=== PATIENT | male | born 1935 | race Caucasian/White ===

== ENCOUNTER → 2023-09-08 14:57 | Outpatient (REF) | payer MEDICARE, SELFPAY | LOC: RAD 14:57 | PROVIDERS: ATTENDING PHYSICIAN Surgery Vascular Surgery; FAMILY PHYSICIAN Family Medicine | DX: I72.9 Aneurysm of unspecified site (principal) | CPT/HCPCS: 93922; 93925 ==

== ENCOUNTER → 2024-05-27 10:16 | Outpatient (REF) | payer MEDICARE, SELFPAY | LOC: RCS 10:16 | PROVIDERS: ATTENDING PHYSICIAN Internal Medicine Cardiovascular Disease; FAMILY PHYSICIAN Family Medicine | DX: I48.21 Permanent atrial fibrillation (principal); Z95.2 Presence of prosthetic heart valve; I25.10 Atherosclerotic heart disease of native coronary artery without angina pectoris | CPT/HCPCS: 93306 ==

== ENCOUNTER 2024-10-10 13:43 | Inpatient (IN) | payer MEDICARE, SELFPAY ==
[2024-10-10] VITALS (11 sets, daily range): BP systolic 104–169; BP diastolic 55–91; BMI 26.8; BMI 25.6
[2024-10-10 09:08] LABS: % Basophils 0.3 % (0-2); % Eosinophils 2.3 % (0-6); % Immature Granulocytes 0.5 % (0-0.5); % Lymphocytes 6.3 % (20.5-51.1); % Monocytes 8.6 % (1.7-9.3); Absolute Eosinophils 0.3 10^3/uL (0-0.7); Absolute Immature Granulocytes 0.1 10^3/uL (0-0.05); Absolute Lymphocytes 0.8 10^3/uL (1.2-3.4); Absolute Neutrophils 9.8 10^3/uL (1.4-6.5); Hematocrit 36.5 % (39.0-52.0); Hemoglobin 12.1 g/dL (13.0-18.0); Mean Corp Hgb Conc. 33.2 g/dL (33.0-37.0); Mean Corpuscular Hgb 29.3 pg (27.0-31.0); Mean Corpuscular Volume 88.4 fL (80.0-94.0); Mean Platelet Volume 10.2 fL (7.4-10.4); Nucleated Red Blood Cells % 0 % (-); Platelet Count 244 10^3/uL (130-400); Red Blood Cell Count 4.13 10^6/uL (4.70-6.10); Red Cell Dist. Width 15.4 % (11.5-14.5)
[2024-10-10 09:15] LABS: INR 2.16; PT 24.2 Sec (11.4-14.6)
[2024-10-10 09:17] LABS: ALT (SGPT) 31 U/L (0-50); AST (SGOT) 27 U/L (17-59); Alkaline Phosphatase 257 U/L (38-126); Blood Urea Nitrogen 40 mg/dl (9-20); Calcium 8.9 mg/dl (8.4-10.2); Carbon Dioxide 23 mmol/L (22-30); Chloride 107 mmol/L (98-107); Estimated Creatinine Clearance 37 ml/min; Glucose 126 mg/dl (70-99); Potassium 4.6 mmol/L (3.5-5.1); Sodium 142 mmol/L (135-145); Total Bilirubin 1.3 mg/dl (0.2-1.3); Total Protein 6.7 g/dl (6.3-8.2); eGFR 41.44
[2024-10-10 09:27] LABS: NT-proBNP 2860 pg/ml
[2024-10-10 09:30] LABS: COVID-19 Antigen Negative (Negative)
--- NOTE | 2024-10-10 10:33 | ED.GENMED ---
History of Present Illness
General
Chief Complaint: Breathing Problem
Source: patient
Time Seen by Provider: 10/10/24 09:00
History of Present Illness
History of Present Illness:
88-year-old male with a history of heart failure, A-fib who presents with 2 days of progressive dyspnea with exertion. Also has had orthopnea. Also has had dyspnea at rest. Patient states symptoms have seemed to get worse. Currently denies any
chest pain but has had a few episodes of twinges. No recent fevers. No hemoptysis. Patient is on Coumadin.
Past History
Past History
ED Past Medical History: Arrthythmia (Atrial fibrillation), Asthma, CAD, Cancer (Skin), CHF, GERD, HTN, NIDDM and Other (Carotid stent, pericarditis, neuropathy, back pain)
ED Past Surgical History: Cardiac (Carotid stent)
Social History
Tobacco: Former smoker
Alcohol: Daily ([place], [place] 1-2 glasses)
Drug: None
Personal:
Living: with family
Employment: Retired
Family History
Family History: Other (Noncontributory)
Phy Exam
Physical Exam
Physical Exam:
CONSTITUTIONAL Patient alert and oriented to person, place and time. Well-appearing. Vital signs reviewed.
HEAD atraumatic, normocephalic.
EYES eyelids normal to inspection, Extraocular muscles intact, Conjunctiva normal, Sclera normal.
NECK normal range of motion, Trachea midline, no jugular venous distention.
RESPIRATORY CHEST No respiratory distress noted, Chest expansion equal, diminished at bilateral bases
CARDIOVASCULAR irregularly irregular
ABDOMEN abdomen nontender, Bowel sounds normal. No distention.
BACK normal inspection, no obvious deformities
UPPER EXTREMITY range of motion normal, Motor strength normal, no cyanosis, no edema.
LOWER EXTREMITY range of motion normal, Motor strength normal, no cyanosis, no edema.
NEURO Speech normal, No focal motor deficits, Vladimir coma scale 15, Memory normal, Cranial Nerves intact to screening exam.
SKIN skin warm, dry, and normal in color.
Scores
Heart Failure Risk
Heart Failure Risk Score: Yes
History of Stroke or TIA: No
History of intubation for respiratory distress: No
Heart rate on ED arrival >/= 110: No
SaO2 <90% on arrival on room air: Yes
HR >/=110 during 3min walk test (or too ill to perform test): Yes
ECG has acute ischemic changes: No
Urea >/=12mmol/L (BUN 33.6mg/dL): Yes
Serum CO2>/=35mmol/L: No
Troponin I or T elevated to VT Level (0.4mg/dL): No
NT-proBNP >/=5,000ng/L (5,000pg/ml): No
HF Risk Score: 4
Admission Status: HIGH RISK 26.1% Consider SNF treatment or admission to hospital
Course
Orders/Labs/Results
Orders:
Orders
10/10/24 08:29
Electrocardiogram (*1) Urgent
Reason for Study: Shortness of Breath
EKG- Treatment ONCE
10/10/24 08:55
Complete Blood Count/With Diff Urgent
Comprehensive Metabolic Panel Urgent
NT-proBNP Urgent
PT/INR [Prothrombin Time] Urgent
Influenza A+B Rapid Molecular Urgent
GIO Source: Nasal Swab
Specimen Description:
10/10/24 08:56
COVID-19 Antigen Urgent
Source: Nasal Swab
10/10/24 09:15
CR Chest - 2 Views Urgent
Comment:
Reason For Exam: cough
10/10/24 10:31
Furosemide [Lasix] 80 mg IV NOW STA
10/10/24 11:03
Urinalysis Reflex To Culture Urgent
Date Specimen was Collected: 10/10/24
Time Specimen was Collected: 10:50
Urine Microscopic Reflex Cult Urgent
Urine Culture Urgent
GIO Source: U
Specimen Description:
Date Specimen was Collected: 10/10/24
Time Specimen was Collected: 10:50
10/10/24 13:03
Admit/Transfer Patient As Directed
Co-Sign Provider:
Level of Care: Inpatient admission
Assign to:: Telemetry
Physician / Group: Hospitalist
Diagnosis: acute CHFpEF exacerbation
Reason for Telemetry: Arrhythmia
Date to Stop Telemetry: 10/13/24
Time to Stop Telemetry: 11:00
Reason for Hospitalization: acute CHFpEF exacerbation
Expected length of stay greater than two midnights?: Yes
ELOS- Estimated Length of Stay in days: 3
I certify the patient meets the requirements for IP care: Yes
10/10/24 13:13
Code Status As Directed
Resuscitation Status: Do not resuscitate
Reached after discussion with pt or family/Healthcare POA: Yes
10/10/24 13:14
DNR Bracelet Application ONCE
10/10/24 Dinner
1800 calorie (15 carb) Diabetic
At Your Request: Full Participation
Fluid Restriction: 1440 mL/day (48 oz)
Diabetic Diet: Sodium, 2 Gram
10/10/24 16:24
Acetaminophen [Tylenol] 650 mg PO DAILYPRN PRN
Bisacodyl [Dulcolax] 10 mg RECTAL [id number] PRN
Dextrose 50%-Water [Dextrose 50% Syringe] 12.5 grams IV [id number] PRN
Furosemide [Lasix] 80 mg IV BID AT 0800,1600
Glucagon [GlucaGen] 1 mg IM PRN PRN
Ipratropium/Albuterol Sulfate [Duoneb] 3 ml INH R Q4HPRN PRN
Polyethylene Glycol Powder [Miralax] 17 grams PO DAILYPRN PRN
10/10/24 16:24
WOUND/OSTOMY CONSULT Routine
Reason for Consult: nonhealing ulcer L ankle
Activity As Directed
Activity Level: With Assistance
As Tolerated
Out of Bed- Wheelchair
Bedside Glucose Monitoring As Directed
Frequency: AC&HS
Additional Instructions:: Change to q6h if pt on TPN, tube feeding or not eating
Intake/ Output As Directed
Frequency: Per unit guidelines
Pneumatic Compression Sleeves As Directed
Type: Knee high
Vital Signs As Directed
Frequency: Per unit guidelines
Weight As Directed
Frequency: Daily
Type of Scale: Standing Scale
DX Deep Vein Thrombosis Video Routine
10/10/24 16:30
Insulin Aspart Corrective Low [Novolog Flexpen-Low Resistance] See Protocol SC AC
10/10/24 18:00
Atorvastatin [Lipitor] 40 mg PO QPM
Doxazosin Mesylate [Cardura] 2 mg PO QPM
Ferrous Sulfate [Feosol] 325 mg PO QPM
Warfarin [Coumadin] 6 mg PO SuMoFrSa@1800
10/10/24 20:00
Penicillin V Potassium [Pen Vk] 500 mg PO BID
Potassium Chloride [KCl] 40 meq PO BID
10/10/24 22:00
Diltiazem Extended Release [Cardizem Cd] 120 mg PO HS
10/11/24 05:53
Complete Blood Count/No Diff IN AM
Glycohemoglobin (HgbA1c) IN AM
Magnesium IN AM
10/11/24 06:00
Echo 2D MMode Color/Doppler IN AM
Reason for Study: HFpEF
10/11/24 08:00
Aspirin Low Dose EC [Aspir Low (Enteric Coated)] 81 mg PO DAILY
Colchicine 0.6 mg PO DAILY
Losartan [Cozaar] 100 mg PO DAILY
Multivitamin [Theragran] 1 tablet PO DAILY
Pantoprazole [Protonix] 40 mg PO DAILY
10/12/24 07:24
Basic Metabolic Panel IN AM
Complete Blood Count/No Diff IN AM
Magnesium IN AM
10/12/24 18:00
Warfarin [Coumadin] 3 mg PO TUWETH@1800
10/13/24 06:51
Basic Metabolic Panel IN AM
Complete Blood Count/No Diff IN AM
Magnesium IN AM
10/13/24 11:00
DC Protocol for Telemetry ONCE
10/14/24 05:21
Basic Metabolic Panel IN AM
Complete Blood Count/No Diff IN AM
Magnesium IN AM
10/15/24 06:00
Basic Metabolic Panel IN AM
Complete Blood Count/No Diff IN AM
Magnesium IN AM
10/16/24 06:00
Basic Metabolic Panel IN AM
Complete Blood Count/No Diff IN AM
Magnesium IN AM
10/17/24 06:00
Basic Metabolic Panel IN AM
Complete Blood Count/No Diff IN AM
Magnesium IN AM
Abnormal Lab Results
10/10/24 10/10/24
08:55 11:03
WBC 12.0 H 10^3/uL
(4.8-10.8)
RBC 4.13 L 10^6/uL
(4.70-6.10)
Hgb 12.1 L g/dL
(13.0-18.0)
Hct 36.5 L %
(39.0-52.0)
RDW 15.4 H %
(11.5-14.5)
Abs Immat Gran (auto) 0.1 H 10^3/uL
(0-0.05)
Absolute Neuts (auto) 9.8 H 10^3/uL
(1.4-6.5)
Absolute Lymphs (auto) 0.8 L 10^3/uL
(1.2-3.4)
Absolute Monos (auto) 1.0 H 10^3/uL
(0.1-0.6)
Neutrophils % 82.0 H %
(42.2-75.2)
Lymphocytes % 6.3 L %
(20.5-51.1)
PT 24.2 H Sec
(11.4-14.6)
BUN 40 H mg/dl
(9-20)
Creatinine 1.6 H mg/dL
(0.7-1.3)
Glucose 126 H mg/dl
(70-99)
Alkaline Phosphatase 257 H U/L
(38-126)
Ur Occult Blood Reflex 2+ A
(Negative)
Urine Nitrite (Reflex) Positive A
(Negative)
Leukocyte Esterase Rfl 3+ A
(Negative)
Urine RBC 3-6 A /HPF
(0-2)
Urine WBC (Reflex) >100 A /HPF
(0-5)
Urine Bacteria (Reflex) Many A
(Negative)
Urine Albumin (Reflex) 2+ A
(Neg - Trace)
10/10/24 08:55
10/10/24 08:55
Vital Signs
Initial and Last Documented VS:
Initial Vital Signs
Temp Pulse Resp BP Pulse Ox
97.7 F 85 16 141/91 98
10/10/24 08:27 10/10/24 08:27 10/10/24 08:27 10/10/24 08:27 10/10/24 08:27
Last Documented Vital Signs
Temp Pulse Resp BP Pulse Ox
98.1 F 73 17 109/42 97
10/14/24 23:31 10/14/24 23:31 10/14/24 23:31 10/14/24 23:31 10/14/24 23:31
MDM/Problems Addressed
MDM/Problems Addressed:
Acute CHF, permanent A-fib, acute kidney injury
*Radiology
Radiology exam reviewed: radiology read reviewed
*Pulse Oximetry
Patient hypoxic: yes
*EKG
Interpreted by ED Provider?: Yes
Interpretation: abnormal
Rate: normal
Rhythm: a-fib
Ischemia: non-specific ST changes
*Paring Machine Operator Interpretation
Rate: normal
Interpretation: abnormal
Rhythm: a-fib
*Critical Care Note
Total Time (30-74mins, 75-104mins- exclusive of procedures): Not Applicable
Data Reviewed
Review of Other/Old Records Reveals: Testing (Echocardiogram reviewed from May 2024)
Source: patient
Patient Management
Discussion with other providers: Hospitalist
Escalation/DeEscalation of care consider admission/obs:
88-year-old male who presents acutely with CHF. Found to have orthopnea and progressive dyspnea recently. Mildly hypoxic in the emergency department but stable now. Diurese and admit. Urine pending
ED Attending Note
-
Portions of this chart may have been created with voice recognition software.� Occasional wrong word or��sound alike� substitutions may have occurred due to the inherent limitations of voice recognition software.
Discharge Plan
Departure
Patient Disposition: Admit
Date of Disposition: 10/10/24
Time of Disposition: 10:34
Admit to: Telemetry
Presentation/result/management discussed w/ accepting MD/DO: Hospitalist
Discharge Problem:
Congestive heart failure (CHF), Acute renal insufficiency
Interventions
Interventions:
*Risk Screen - Suicide Last Done: 10/10/24 08:27
*General Assessment Last Done: 10/10/24 08:47
*Neglect/Abuse Screening Last Done: 10/10/24 08:27
*ED- Fall Risk Assessment Last Done: 10/10/24 08:47
*ED COVID-19 Vaccine History Last Done: 10/10/24 08:47
*Nursing Disposition Last Done: 10/10/24 15:59
ED- Cardiac Assessment Last Done: 10/10/24 08:47
ED- Pulmonary Assessment Last Done: 10/10/24 08:47
Discharge Date and Time
Discharge Date/Time: 10/10/24 16:05
[2024-10-10] MEDS: LASIX 80 MG IV ×2 (11:09→17:31)
[2024-10-10 11:41] LABS: Urine Albumin 2+ (Neg - Trace); Urine Bilirubin Negative (Negative); Urine Character Slightly Cloudy (Clear); Urine Color Yellow; Urine Glucose Negative (Negative); Urine Ketone Negative (Negative); Urine Leukocyte 3+ (Negative); Urine Nitrite Positive (Negative); Urine Occult Blood 2+ (Negative); Urine Urobilinogen Negative (Neg - 1+)
--- NOTE | 2024-10-10 11:57 | HPS.HSE ---
Addendum entered and electronically signed by Simran Orellana MD 10/10/24 14:40:
I personally performed a history and physical exam of the patient and discussed management with the resident. I reviewed the resident's note and agree with the documented findings and plan of care HPI/CC.
GENERAL: well developed, well nourished, male in no apparent distress
HEENT: NC/AT--no O2 in place (currently eating a sandwich)
HEART: irreg irreg
LUNGS : decreased BS bilaterally with expiratory wheezing
ABDOM: soft, nontender, nondistended, + bowel sounds
EXT: no cyanosis, clubbing, or edema
NEUROLOGIC: grossly intact
Dyspnea, likely acute HFpEF exacerbation with acute hypoxemic resp insufficiency (2L) now on room air--Pulm HTN, asthmatic bronchitis may also be contributing, check flu/Covid-- Continue IV lasix 80mg BID, monitor I&Os, daily weights-- agree with
rechecking ECHO--consult cardiology--Continue home losartan 100mg
Permanent atrial fibrillation-- Remains in afib rhythm, rate adequately controlled--Continue home diltiazem ER and warfarin-- Monitor INR.
Essential HTN-- continue home diltiazem and doxazosin 2mg
Diabetes mellitus type 2 (pt claims he is prediabetic)-- Hold home metformin for now given elevated creat-- Diabetic diet, accuchecks, ISS while inpatient--A1C in AM.
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
UTI--UA, symptoms consistent with UTI-- ceftriaxone 1g daily (patient denies any reaction to cefazolin, antibiotics, or any med), culture pending
CAD, HLD-- continue home atorvastatin 40mg, asa 81mg
GERD-- continue home pantoprazole 40mg
Hypokalemia-- continue home K 20meq BID, follow BMP, supplement prn
?Gout-- continue home colchicine
H/o recurrent cellulitis-- continue home penicillin 500mg BID for prophylaxis, on chronically PLATE CUTTER
Asthma-- not on inhalers PLATE CUTTER; duonebs prn
Code status: DNR
DVT proph-- warfarin, SCDs
Original Note:
Family Physician
-
Family Physician: * NONE
Chief Complaint
-
shortness of breath, fluid retention
History of Present Illness
88yo M with PMH chronic HFpEF, perm afib (warfarin), s/p TAVR, CAD s/p LAD stent, PAD, pulm htn, former smoker who presents to ED for worsening shortness of breath and fluid retention. He was in his baseline state of health, and 2 days ago noticed
worsening shortness of breath with exertion, laying flat, and at rest. 3 days ago he had transient chest pain that lasted 10 seconds, and then another brief episode that felt like a pulled muscle which resolved spontaneously; otherwise denies chest
pain/pressure. Reports dry cough; no fevers, chills, rhinorrhea, congestion, flulike symptoms. He reports his he monitors his weight daily, yesterday it was 195 lbs which is his dry weight per review of outpatient records. He has been taking his
regular medications, but did not take that as needed dose of metolazone/K/lasix for worsening fluid retention. He says his breathing got much worse last night, which prompted him to come to the ER this morning.
Medical History
Past Medical History
Past Medical History: Reports Arrhythmia (permanent afib on warfarin), Asthma, CAD (s/p LAD stent), Cancer (skin), CHF (pEF), HTN, Hypercholesterolemia, NIDDM, [place], Renal Failure (CKD), Valvular Disease (s/p TAVR) and Other (PAD, bilateral carotid
disease, schambers disease, pulmonary hypertension, chronic ambulatory dysfunction, seasonal allergies)
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
Social History
Tobacco: Former Smoker
Alcohol: Daily (4-5 days per week)
Drug: None
Family History
Family History: Not pertinent
Allergies / Home Medications
Allergies reflects when Allergies were last updated in [employer].
Home Medications with original date entered in [facility]
Allergy/Medication List:
Allergies
Allergy/AdvReac Type Severity Reaction Status Date / Time
cefazolin Allergy Rash; Verified 10/10/24 08:28
tolerates
PCN
clopidogrel [From Plavix] Allergy Rash Verified 10/10/24 08:28
Home Medications
multivitamin with folic acid 400 mcg tablet (Tab-A-Janay) 1 tab PO DAILY Supplement 10/16/18
atorvastatin 40 mg tablet 40 mg PO QPM #90 tabs 01/20/19
pantoprazole 40 mg tablet,delayed release 40 mg PO DAILY ##90 01/20/19
aspirin 81 mg tablet,delayed release 81 mg PO DAILY Blood clot prevention/tx 08/08/19
furosemide 80 mg tablet 160 mg PO DAILY Fluid retention/Swelling 08/09/19
metformin 500 mg tablet 500 mg PO QPM Diabetes 11/14/20
diltiazem HCl 180 mg capsule,extended release 24 hr 180 mg PO QPM Blood pressure 05/23/21
ferrous sulfate 325 mg (65 mg iron) tablet (FeroSul) 325 mg PO QPM Supplement 05/23/21
potassium chloride 20 mEq tablet,extended release(part/cryst) (Klor-Con M) 20 meq PO QPM Electrolyte Repletion 05/23/21
potassium chloride 20 mEq tablet,extended release(part/cryst) (Klor-Con M) 40 meq PO DAILY Electrolyte Repletion 05/23/21
colchicine 0.6 mg tablet 0.6 mg PO DAILY 03/01/22
penicillin V potassium 500 mg tablet 500 mg PO BID 03/01/22
warfarin 3 mg tablet 3 mg PO WE 03/01/22
warfarin 6 mg tablet 6 mg PO SUMOTUTHFRSA 03/01/22
losartan 100 mg tablet 100 mg PO DAILY 04/01/22
metolazone 2.5 mg tablet 2.5 mg PO PRN PRN .weight gain 04/01/22
Review of Systems
-
Constitutional: Reports Weight Gain; Denies Fever or Chills
EENT: Reports No Symptoms; Denies Sore Throat or Runny Nose
Respiratory: Reports Cough (dry) and Trouble Breathing (see HPI); Denies Hemoptysis
Cardiac: Reports Chest Pain (transient, resolved); Denies Diaphoresis, Palpitations or Syncope
Abdomen/GI: Reports No Symptoms; Denies Abdominal Pain, Nausea, Vomiting, Diarrhea, Constipated, Bloody Stools or Black Stools
: Reports Dysuria; Denies Difficulty Voiding
Musculoskeletal: Reports No Symptoms; Denies Joint Pain or Muscle Pain
Skin: Reports Other (chronic nonhealing ulcer, at baseline)
Neurological: Reports Numbness and Other (peripheral neuropathy); Denies Dizzy, Headache or Weakness
Endocrine: Reports No Symptoms
Hematologic/Lymphatic: Reports No Symptoms
Psych: Reports No Symptoms
Physical Exam
Vital Signs
Vital Signs
Temp Pulse Resp BP Pulse Ox
97.7 F 77 19 149/76 93
10/10/24 08:27 10/10/24 11:45 10/10/24 11:45 10/10/24 11:09 10/10/24 11:45
Physical Exam
General: Comfortable, Conversant and Obese; No Pain, Fever, Chills, Sweats or Slurred Speech
HEENT: NormoCephalic, Atraumatic, Hearing Impaired (+hearing aids) and Oxygen (2 L/min NC)
Respiratory: Wheezes (throughout); No Rhonchi or Crackles
Cardiac: S1/S2 and Irregular Rhythm; No Bradycardia or Tachycardia
GI: Soft, Non Tender, Normal Bowel Sounds and Distended
Musculoskeletal: Edema, Left Lower Extremity, Edema, Right Lower Extremity and Other (s/p R 5th toe amputation; lower extrem with +1 edema bilat/symmetric)
Skin: Warm, Dry, Rash (hyperpigmentation bilat lower legs), Ulcers (L ankle) and Other (black macule inferior L 3rd toe)
Neuro: Awake, Alert, Oriented, AO x 3 and Nonfocal/grossly intact; No Slurred Speech or Facial Droop
Psych: Calm
Laboratory Results
-
10/10/24 08:55
10/10/24 08:55
Laboratory Results
PT 24.2 Sec (11.4-14.6) H 10/10/24 08:55
INR 2.16 10/10/24 08:55
Total Bilirubin 1.3 mg/dl (0.2-1.3) 10/10/24 08:55
AST 27 U/L (17-59) 10/10/24 08:55
ALT 31 U/L (0-50) 10/10/24 08:55
Alkaline Phosphatase 257 U/L (38-126) H 10/10/24 08:55
Data Reviewed
-
Diagnostic Radiology: Image Personally Visualized and interpreted and Report Reviewed by me
Medical Tests (Nuc Med, Echo, EKG etc): Report Reviewed by me
Lab Data: Labs Reviewed by me
Old Records: Reviewed
Impression/Plan
-
88yo M with PMH chronic HFpEF, perm afib (warfarin), s/p TAVR, CAD s/p LAD stent, PAD, pulm htn, former smoker who presents to ED for worsening dyspnea and fluid retention. In the ED, BNP was 2860, chest x-ray showed pulmonary edema and bilateral
pleural effusions. Flu and COVID swabs were negative. He was given IV Lasix 80 mg.
Dyspnea, likely acute HFpEF exacerbation. Pulm htn, asthmatic bronchitis may also be contributing-- Continue IV lasix 80mg BID, monitor I&Os, daily weights, low Na diet. Obtain echo, consult cardiology. Continue home losartan 100mg-- Card consult
Permanent atrial fibrillation-- Remains in afib rhythm, rate adequately controlled. Continue home diltiazem ER and warfarin. Monitor INR.
HTN-- continue home diltiazem and doxazosin 2mg
Diabetes type 2-- Hold home metformin. Diabetic diet, accuchecks, ISS while inpatient. A1C in AM.
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
UTI--UA, symptoms consistent with UTI-- ceftriaxone 1g daily (patient denies any reaction to cefazolin, antibiotics, or any med), culture pending
CAD, HLD-- continue home atorvastatin 40mg, asa 81mg.
GERD-- continue home pantoprazole 40mg
Hypokalemia-- continue home K 20meq BID, follow BMP, supplement prn
?Gout-- continue home colchicine
H/o recurrent cellulitis-- continue home penicillin 500mg BID for prophylaxis, on chronically PLATE CUTTER
Asthma-- not on inhalers PLATE CUTTER; duonebs prn
Code status: DNR
VTE ppx: warfarin, SCDs
Diet: diabetic, 2g Na, fluid restrict
Dispo planning: TBD pending clincal course and PT eval
Chest xray 10/10/24
IMPRESSION:
As described, findings highly suggestive of interstitial pulmonary edema pattern with bilateral pleural effusions, right greater than left.
[2024-10-10 12:13] LABS: Urine Squamous Cell 0-2 /LPF (Few)
[2024-10-10 12:14] LABS: Urine Bacteria Many (Negative); Urine White Cell >100 /HPF (0-5)
[2024-10-10] MEDS: STERILE WATER FOR INJECTION 10 ML IV (14:45)
[2024-10-10] MEDS: ROCEPHIN 1000 MG IV (14:45)
--- NOTE | 2024-10-10 17:08 | PTCARENOTE ---
Pt was received from ED at 1641. Pt is AAox3, BP elevated, will monitor. Pt with SOB on arrival but states that his breathing is better than before. 3L O2 on, POX 97%. Pt oriented to the room and care plan reviewed. Call maddox in reach. Son at the
bedside.
[2024-10-10] MEDS: LIPITOR 40 MG PO (17:29)
[2024-10-10] MEDS: FEOSOL 325 MG PO (17:29)
[2024-10-10] MEDS: CARDURA 2 MG PO (17:29)
[2024-10-10] MEDS: COUMADIN 6 MG PO (17:30)
[2024-10-10 17:35] LABS: Glucose - Point of Care 92 mg/dl (70-99)
[2024-10-10] MEDS: PEN VK 500 MG PO (19:28)
[2024-10-10] MEDS: KCL 40 MEQ PO (19:28)
[2024-10-10] MEDS: CARDIZEM CD 120 MG PO (21:13)
[2024-10-10 21:14] LABS: Glucose - Point of Care 150 mg/dl (70-99)
[2024-10-11] VITALS (7 sets, daily range): BP systolic 118–155; BP diastolic 55–71; PULSE 83; BMI 25.0
[2024-10-11 06:31] LABS: Hematocrit 34.6 % (39.0-52.0); Hemoglobin 11.2 g/dL (13.0-18.0); Mean Corp Hgb Conc. 32.4 g/dL (33.0-37.0); Mean Corpuscular Hgb 29.6 pg (27.0-31.0); Mean Corpuscular Volume 91.5 fL (80.0-94.0); Mean Platelet Volume 10.7 fL (7.4-10.4); Platelet Count 234 10^3/uL (130-400); Red Blood Cell Count 3.78 10^6/uL (4.70-6.10); Red Cell Dist. Width 15.4 % (11.5-14.5); White Blood Cell Count 9.9 10^3/uL (4.8-10.8)
[2024-10-11 06:39] LABS: INR 2.26
[2024-10-11 07:07] LABS: ALT (SGPT) 27 U/L (0-50); AST (SGOT) 21 U/L (17-59); Albumin 3.4 g/dl (3.5-5.0); Alkaline Phosphatase 228 U/L (38-126); Blood Urea Nitrogen 35 mg/dl (9-20); Calcium 8.9 mg/dl (8.4-10.2); Carbon Dioxide 25 mmol/L (22-30); Chloride 108 mmol/L (98-107); Direct Bilirubin 0.4 mg/dl (0.0-0.4); Estimated Creatinine Clearance 42 ml/min; Glucose 122 mg/dl (70-99); Magnesium 2.2 mg/dl (1.6-2.3); Potassium 4.7 mmol/L (3.5-5.1); Sodium 144 mmol/L (135-145); Total Bilirubin 0.9 mg/dl (0.2-1.3); Total Protein 5.9 g/dl (6.3-8.2); eGFR 48.65
[2024-10-11 07:46] LABS: Glucose - Point of Care 148 mg/dl (70-99)
[2024-10-11] MEDS: COLCHICINE 0.6 MG PO (08:29)
[2024-10-11] MEDS: PEN VK 500 MG PO ×2 (08:29→19:51)
[2024-10-11] MEDS: THERAGRAN 1 TABLET PO (08:29)
[2024-10-11] MEDS: PROTONIX 40 MG PO (08:29)
[2024-10-11] MEDS: KCL 40 MEQ PO ×2 (08:29→19:51)
[2024-10-11] MEDS: COZAAR 100 MG PO (08:29)
[2024-10-11] MEDS: ASPIR LOW (ENTERIC COATED) 81 MG PO (08:29)
[2024-10-11] MEDS: LASIX 80 MG IV ×2 (08:29→15:29)
--- NOTE | 2024-10-11 10:37 | WOUNDNOTE ---
L 3RD TOE PLANTAR
--- NOTE | 2024-10-11 10:38 | WOUNDNOTE ---
L 3RD TOE NAIL
--- NOTE | 2024-10-11 10:41 | WOUNDNOTE ---
[facility] RN note: Patient admitted with CHF
See H&P for complete history.
PMH: ED Past Medical History: Arrthythmia (Atrial fibrillation), Asthma, CAD, Cancer (Skin), CHF, GERD, HTN, NIDDM and Other (Carotid stent, pericarditis, neuropathy, back pain)
ED Past Surgical History: Cardiac (Carotid stent) R foot surgery for osteomyelitis.
Wound Location and type/assessment: Patient admitted with: L lateral ankle full thickness ulcer, reeves base, scant drainage. Patient reports it was caused by a shoe buckle, he is being followed by Dr. Johnson. Reports treatment is mupirocin cream
daily and dry dressing, has apt with Dr. Johnson next week. R heel and foot with dry intact old healed surgical sites. Patient turned self to sides, sacrum blanchable red, chronic perianal discoloration. L 3rd toe plantar with tiny blood blister and
abrasion on L guo, scabbed and dry. Patient reports he got this when trying to put pants on and stubbed toe and scraped guo. L heel is blanchable red. R arm with tiny skin tear, silicone foam in use.
Appetite: Good.
Pressure redistribution devices in place: On versa care air bed, pillow under calves.
Plan: Will order mupirocin for L ankle ulcer, applied adaptic and silicone foam. Adhesive foams applied to heels. Continue Band aid to L 3rd toe. Will confirm orders with hospitalist and update nurse.
Updated care plan and will follow as needed.
Note to case management of equipment requested for discharge: VN if patient unable to do wound care
Recommend follow up with Dr. Johnson.
[2024-10-11 10:43] LABS: Glycohemoglobin (HgbA1c) 5.8 % (4.0-5.6)
[2024-10-11] MEDS: BACTROBAN 2% OINTMENT 1 APPLIC TOPICAL (12:22)
[2024-10-11 12:32] LABS: Glucose - Point of Care 105 mg/dl (70-99)
--- NOTE | 2024-10-11 13:57 | CON.CAR ---
Addendum entered and electronically signed by Chidi Herman MD 10/11/24 16:19:
88 yo male with PMH of chronic HFPEF, pulm HTN, cor pulmonale, permanent A fib on warfarin admitted with SOB, edema. SOB is improving with IV lasix. Exam with irregular rhythm, II/ systolic murmur at apex, trace LE edema. Cr 1.4.
Acute on chronic HFPEF, cor pulmonale. Severe, requiring hospitalization and IV lasix with close monitoring of labs, tele. Check echo. of note, he takes lasix 160mg AM, 80mg PM at home. May need metolazone at home. He is currently responding to
lasix 80mg IV bid.
Original Note:
Consultation
Consultation Request
Date/Time Consultation Requested: 10/11/24 1307
Date/Time Consultation Performed: 10/11/24 1357
Requesting Provider: Dr. Sun
Performing Provider: Yisel DANIELS for
Reason for Consultation: CHF, hypoxia, pulm HTN
Medical History
-
Chief Complaint: SOB
History of Present Illness:
88 y/o male (patient of Dr. Elizabeth) with permanent AFIB on warfarin, CAD with stenting 2018, HTN, HFpEF, s/p TAVR, PAD (Dr. Easton), CKD, and severe pulm HTN who is here for SOB since Friday. He is being diuresed and is on O2. He feels 80%
better. Weight is down and I/O negative. He is in no distress at the time of my assessment.
Past Medical History
Past Medical History: Arrhythmias, CAD, CHF, HTN, Valvular Disease and Other (as above)
Social History
Tobacco: Non-Smoker
Family History
Family History: Reviewed & Not Pertinent
Allergies / Home Medications
Allergy/AdvReac Type Severity Reaction Status Date / Time
cefazolin Allergy Rash; Verified 10/10/24 08:28
tolerates
PCN
clopidogrel [From Plavix] Allergy Rash Verified 10/10/24 08:28
�Medication �Instructions �Recorded �Confirmed �Type
multivitamin with folic acid 400 1 tab PO DAILY Supplement 10/16/18 10/10/24 History
mcg tablet (Tab-A-Janay)
atorvastatin 40 mg tablet 40 mg PO QPM #90 tabs 01/20/19 10/10/24 Rx
pantoprazole 40 mg tablet,delayed 40 mg PO DAILY ##90 01/20/19 10/10/24 Rx
release
aspirin 81 mg tablet,delayed 81 mg PO DAILY Blood clot 08/08/19 10/10/24 History
release prevention/tx
furosemide 80 mg tablet 80 mg PO DAILY Fluid 08/09/19 10/10/24 History
retention/Swelling
ferrous sulfate 325 mg (65 mg 325 mg PO QPM Supplement 05/23/21 10/10/24 History
iron) tablet (FeroSul)
potassium chloride 20 mEq 40 meq PO BID Electrolyte Repletion 05/23/21 10/10/24 History
tablet,extended
release(part/cryst) (Klor-Con M)
colchicine 0.6 mg tablet 0.6 mg PO DAILY Gout 03/01/22 10/10/24 History
penicillin V potassium 500 mg 500 mg PO BID Infection 03/01/22 10/10/24 History
tablet
warfarin 3 mg tablet 3 mg PO TUWE@1800 Blood Clot 03/01/22 10/10/24 History
Prevention/Tx
warfarin 6 mg tablet 6 mg PO SuMoFrSa@1800 03/01/22 10/10/24 History
losartan 100 mg tablet 100 mg PO DAILY Blood Pressure 04/01/22 10/10/24 History
acetaminophen 325 mg tablet 650 mg PO DAILYPRN PRN mild pain 10/10/24 10/10/24 History
(Tylenol)
diltiazem HCl 120 mg capsule,24 120 mg PO HS Heart 10/10/24 10/10/24 History
hr,extended release Disease/Condition
doxazosin 2 mg tablet 2 mg PO QPM 10/10/24 10/10/24 History
furosemide 80 mg tablet (Lasix) 80 mg PO QPM 10/10/24 10/10/24 History
metformin 500 mg tablet 500 mg PO QPM Diabetes 10/10/24 10/10/24 History
Review of Systems
-
History Source: Patient
All other systems: Negative unless noted
Respiratory: Trouble Breathing
Physical Exam
Vital Signs
Temp Pulse Resp BP Pulse Ox
97.9 F 86 20 155/63 94
10/11/24 11:00 10/11/24 11:00 10/11/24 11:00 10/11/24 11:00 10/11/24 11:00
Lab Results
10/11/24 05:53
10/11/24 05:53
Qwk-X-Wvtdakjbimg Pept 2860 pg/ml 10/10/24 08:55
Physical Exam
General: Well Developed, Well Nourished and No Apparent Distress
HEENT: Normocephalic and Anicteric
Respiratory: Crackles (mild, bases) and Other (on O2 by NC)
Cardiac: Irregular Rhythm
GI: Distended (soft)
Musculoskeletal: No Edema
Skin: Warm and Dry
Neuro: AO x 3
Psych: Calm
Impression / Plan
-
SOB:
-Cor Pulmonale, severe pulm HTN, HFpEF ([id number])
-Echo 10/11/24: EF 55-60%. Mild/moderate mitral regurgitation. Normally functioning 23mm Chambers S3 TAVR. Peak gradient 23mmHg/Mean gradient 13mmHg. Mildly dilated right ventricle. Mildly reduced RV systolic function. Moderate TR. Severely elevated
PASP. PAP 85-90 mmHg.
-agree with IV diuresis, which requires intensive monitoring. OP regimen includes Lasix 160 mg PO in AM and 80 mg in PM, and PRN metolazone 2.5 mg (takes if weight goes up 3 lbs overnight or gets close to 200 lbs)- typically 1-3 x per week.
-feels 80% better s/p IV diuresis and O2 by NC. Weight is down and I/O negative. He does note that he has had more soup recently. CHF education. Will also pfeiffer SGLT2 inhibitors.
s/p TAVR:
-stable by echo
AFIB: permanent
-continue warfarin and follow INR's (In range today)
-continue diltiazem
CAD with hx stenting:
-stable
-on ASA and statin
SOCO on CKD:
-monitor with diuresis
Data Reviewed
-
EKG: Tracing Personally Visualized and interpreted (AFIB, LBBB )
Radiology: Report Reviewed by me (CXR: findings highly suggestive of interstitial pulmonary edema pattern with bilateral pleural effusions, right greater than left.)
Medical Tests (Nuc Med, Echo etc): Report Reviewed by me (Echo 10/11/24: EF 55-60%. Mild/moderate mitral regurgitation. Normally functioning 23mm Chambers S3 TAVR. Peak gradient 23mmHg/Mean gradient 13mmHg. Mildly dilated right ventricle. Mildly
reduced RV systolic function. Moderate TR. Severely elevated PASP. PAP 85-90 mmHg.)
Labs: Labs Reviewed by me
--- NOTE | 2024-10-11 14:32 | W.PN.HOSP.TC ---
Today's Communication/Plan
-
Diuresis.
Follow BMP.
Attempt to wean off supplemental oxygen as tolerates
Cardiology consultation.
Continue antibiotics pending urine cultures.
Wound care.
TREVA/PVR
Assessment / Plan
Assessment / Plan
Impression:
Acute hypoxic respiratory failure secondary to CHF exacerbation.
Acute CHF preserved EF exacerbation.
Severe pulmonary hypertension.
SOCO possibly secondary to cardiorenal
UTI uncomplicated
Other conditions
Aortic stenosis status post TAVR.
Permanent atrial fibrillation
Anticoagulation with Coumadin
Systemic hypertension
Diabetes mellitus type 2.
CKD stage IIIa with baseline creatinine 1.2
CAD
PAD.
Dyslipidemia
GERD.
Gout.
Asthma
Plan:
Echo 10/11
Normal left ventricular systolic function. Left ventricular ejection fraction
is 55-60%.
Mild/moderate mitral regurgitation.
Normally functioning 23mm Chambers S3 TAVR. Peak gradient 23mmHg/Mean gradient
13mmHg.
Mildly dilated right ventricle. Mildly reduced right ventricular systolic
function.
Moderate tricuspid regurgitation. Severely elevated PASP. Estimated pulmonary
artery pressure of 85-90 mmHg assuming a right atrial pressure of 15 mmHg.
Compared to 05/27/24: MR has improved from moderate to mild/moderate. Moderate
TR is stable. PASP was 80-90 mmHg at that time (stable).
Acute hypoxic respiratory failure secondary to CHF exacerbation
Acute CHF preserved EF
Pulmonary hypertension
Reports improvement with diuresis. Weight 80-85 kg since admission. Currently on O2 at 2 L with no distress.
Repeated echo as above.
Reports compliance with outpatient cardiovascular regimen including daily diuretics
Continue IV diuresis.
Attempt to wean off oxygen.
Cardiology consultation
With severe pulmonary hypertension, may need additional evaluation with RHC
Continue Cardura, losartan, diltiazem
SOCO
CKD stage IIIa with baseline creatinine 1.2.
Suspect cardiorenal state.
Improvement with diuresis.
Bladder scan for retention.
Continue losartan with caution monitor renal function
UTI.
Symptomatic on admission
Continued ceftriaxone pending urine cultures.
PAD with history of right lower extremity wound and balloon angioplasty on right posterior tibial artery
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
Will repeat TREVA/PVR
Continue wound care
CAD denies any chest pain
ECG with A-fib with no ischemia.
Echo with no regional wall motion abnormalities
Permanent atrial fibrillation.
Rate control with diltiazem.
Anticoagulations Coumadin with goal for INR 2-3. Monitor daily while on antibiotics.
Prediabetes
Hemoglobin A1c 5.8
Continue to monitor sugars daily
Anticipated Discharge: 24 - 48 hours
Subjective/Interval History
-
Date of Service: October 11, 2024
Objective Data
-
Labs:
Laboratory Results
10/11/24
05:53
WBC 9.9
Hgb 11.2 L
Hct 34.6 L
Plt Count 234
PT 25.0 H
INR 2.26
Sodium 144
Potassium 4.7
Chloride 108 H
Carbon Dioxide 25
BUN 35 H
Creatinine 1.4 H
Glucose 122 H
Calcium 8.9
Total Bilirubin 0.9
AST 21
ALT 27
Alkaline Phosphatase 228 H
Vital Signs:
Vital Signs
Temp Pulse Resp BP Pulse Ox
97.9 F 86 20 155/63 94
10/11/24 11:00 10/11/24 11:00 10/11/24 11:00 10/11/24 11:00 10/11/24 11:00
I&O
10/10/24 10/11/24 10/12/24
06:59 06:59 06:59
Intake Total 460 / 460
Output Total 2400 / 2400
Balance -1939 /
Physical Exam
-
General: Well Developed and No Apparent Distress
HEENT: Normocephalic, Atraumatic and Moist Mucous Membranes
Respiratory: Clear to Auscultation
Cardiac: Regular Rhythm and S1/S2; Negative Murmur, Rub or Gallop
GI: Soft, Nontender, Nondistended and Normal Bowel Sounds; Negative Organomegaly
Rectal: Deferred by Provider
Musculoskeletal: No Clubbing, No Cyanosis and No Edema
Skin: Negative Rash
Neuro: Nonfocal/Grossly Intact
[2024-10-11] MEDS: STERILE WATER FOR INJECTION 10 ML IV (15:29)
[2024-10-11] MEDS: ROCEPHIN 1000 MG IV (15:29)
[2024-10-11 16:11] LABS: Glucose - Point of Care 122 mg/dl (70-99)
--- NOTE | 2024-10-11 17:10 | CM ---
Alert awake oriented patient who lives alone lives in a 2 story home with 1 step to enter and bed and bathroom on first floor. He is independent in driving and in all activities of daily living.He was offered VN he declined need.He is on oxygen
here in . Watch for oxygen needs. He uses wc walker at home.
. Pt [facility] hx / No SNF history
Pharmacy [facility]
PCP DR Rip Craft
PLAN Home Declined VN
[2024-10-11] MEDS: LIPITOR 40 MG PO (17:40)
[2024-10-11] MEDS: FEOSOL 325 MG PO (17:40)
[2024-10-11] MEDS: COUMADIN 6 MG PO (17:46)
[2024-10-11] MEDS: CARDURA 2 MG PO (17:46)
--- NOTE | 2024-10-11 18:29 | PTCARENOTE ---
pt with decreased output, bladder scanned pt. pt with 391 cc in his bladder. pt explained of possible st cath if greater than [address] cath in that event. made aware. no new orders at this time. cont. bladder scan.
[2024-10-11] MEDS: CARDIZEM CD 120 MG PO (19:52)
[2024-10-11 21:40] LABS: Glucose - Point of Care 102 mg/dl (70-99)
[2024-10-12] VITALS (7 sets, daily range): BP systolic 109–162; BP diastolic 56–71; O2SAT 94; BMI 25.1
[2024-10-12 07:59] LABS: Glucose - Point of Care 98 mg/dl (70-99)
[2024-10-12 08:10] LABS: INR 2.45; PT 26.6 Sec (11.4-14.6)
[2024-10-12 08:13] LABS: Hematocrit 36.5 % (39.0-52.0); Hemoglobin 11.7 g/dL (13.0-18.0); Mean Corp Hgb Conc. 32.1 g/dL (33.0-37.0); Mean Corpuscular Hgb 29.3 pg (27.0-31.0); Mean Corpuscular Volume 91.3 fL (80.0-94.0); Mean Platelet Volume 10.7 fL (7.4-10.4); Platelet Count 242 10^3/uL (130-400); Red Cell Dist. Width 15.3 % (11.5-14.5); White Blood Cell Count 9.8 10^3/uL (4.8-10.8)
--- NOTE | 2024-10-12 08:19 | W.PN.CD ---
Today's Communication / Plan
-
add metolazone 5mg x1 prior to AM lasix, and continue lasix 80mg IV bid
Impression / Plan
-
SOB:
-Cor Pulmonale, severe pulm HTN, HFpEF ([id number]): requiring hospitalization and close monitoring of labs, tele
-Echo 10/11/24: EF 55-60%. Mild/moderate mitral regurgitation. Normally functioning 23mm Chambers S3 TAVR. Peak gradient 23mmHg/Mean gradient 13mmHg. Mildly dilated right ventricle. Mildly reduced RV systolic function. Moderate TR. Severely elevated
PASP. PAP 85-90 mmHg.
-OP regimen includes Lasix 160 mg PO in AM and 80 mg in PM, and PRN metolazone 2.5 mg (takes if weight goes up 3 lbs overnight or gets close to 200 lbs)- typically 1-3 x per week.
- still SOB: add metolazone 5mg x1 prior to AM lasix, and continue lasix 80mg IV bid
s/p TAVR:
-stable by echo
AFIB: permanent
-continue warfarin and follow INR's (In range today)
-continue diltiazem
CAD with hx stenting:
-stable
-on ASA and statin
SOCO on CKD3a:
-monitor with diuresis
Physical Exam
Vital Signs/Labs
Vital Signs
Temp Pulse Resp BP Pulse Ox
98 F 69 20 114/57 95
10/12/24 03:08 10/12/24 03:08 10/12/24 03:08 10/12/24 03:08 10/12/24 03:08
10/11/24 10/12/24 10/13/24
06:59 06:59 06:59
Actual Weight 85.927 kg 86.364 kg
10/12/24 07:24
PT 26.6 Sec (11.4-14.6) H 10/12/24 07:24
INR 2.45 10/12/24 07:24
Magnesium 2.2 mg/dl (1.6-2.3) 10/11/24 05:53
10/10/24
08:55
Nfv-Z-Ctgwstixthj Pept 2860
Physical Exam
Constitutional: No acute distress
EENT: Moist mucous membranes
Cardiovascular: Rhythm/rate is irregular, Pedal edema present, JVD present and Systolic murmur present
Respiratory: Labored respirations
Neuro/Psych: AO x 3
Data Reviewed
-
Date of Service: October 12, 2024
EKG: Other (Tele: A fib 60s)
Labs: Labs Reviewed by me
[2024-10-12 08:38] LABS: Blood Urea Nitrogen 38 mg/dl (9-20); Calcium 9.3 mg/dl (8.4-10.2); Carbon Dioxide 26 mmol/L (22-30); Chloride 108 mmol/L (98-107); Estimated Creatinine Clearance 42 ml/min; Glucose 106 mg/dl (70-99); Magnesium 2.3 mg/dl (1.6-2.3); Potassium 4.2 mmol/L (3.5-5.1); Sodium 144 mmol/L (135-145); eGFR 48.65
[2024-10-12] MEDS: PROTONIX 40 MG PO (10:16)
[2024-10-12] MEDS: BACTROBAN 2% OINTMENT 1 APPLIC TOPICAL (10:16)
[2024-10-12] MEDS: COZAAR 100 MG PO (10:17)
[2024-10-12] MEDS: KCL 40 MEQ PO ×2 (10:17→19:39)
[2024-10-12] MEDS: THERAGRAN 1 TABLET PO (10:17)
[2024-10-12] MEDS: ASPIR LOW (ENTERIC COATED) 81 MG PO (10:21)
[2024-10-12] MEDS: COLCHICINE 0.6 MG PO (10:22)
[2024-10-12] MEDS: ZAROXOLYN 5 MG PO (10:22)
[2024-10-12] MEDS: PEN VK 500 MG PO (10:22)
[2024-10-12] MEDS: LASIX 80 MG IV ×2 (11:02→17:32)
[2024-10-12 12:13] LABS: Glucose - Point of Care 134 mg/dl (70-99)
--- NOTE | 2024-10-12 15:59 | W.PN.HOSP.TC ---
Today's Communication/Plan
-
IV diuresis with addition of metolazone.
Easton catheter for acute retention per
Continue antibiotics pending final cultures. Hold Pen-Vk while on ceftriaxone
TREVA/PVR
Assessment / Plan
Assessment / Plan
Impression:
Acute hypoxic respiratory failure secondary to CHF exacerbation.
Acute CHF preserved EF exacerbation.
Severe pulmonary hypertension.
SOCO possibly secondary to cardiorenal
UTI uncomplicated
Other conditions
Aortic stenosis status post TAVR.
Permanent atrial fibrillation
Anticoagulation with Coumadin
Systemic hypertension
Diabetes mellitus type 2.
CKD stage IIIa with baseline creatinine 1.2
CAD
PAD.
Dyslipidemia
GERD.
Gout.
Asthma
Plan:
Echo 10/11
Normal left ventricular systolic function. Left ventricular ejection fraction
is 55-60%.
Mild/moderate mitral regurgitation.
Normally functioning 23mm Chambers S3 TAVR. Peak gradient 23mmHg/Mean gradient
13mmHg.
Mildly dilated right ventricle. Mildly reduced right ventricular systolic
function.
Moderate tricuspid regurgitation. Severely elevated PASP. Estimated pulmonary
artery pressure of 85-90 mmHg assuming a right atrial pressure of 15 mmHg.
Compared to 05/27/24: MR has improved from moderate to mild/moderate. Moderate
TR is stable. PASP was 80-90 mmHg at that time (stable).
Acute hypoxic respiratory failure secondary to CHF exacerbation
Acute CHF preserved EF
Pulmonary hypertension
Reports improvement with diuresis. Weight 80-85 kg since admission. Currently on O2 at 2 L with no distress.
Repeated echo as above.
Reports compliance with outpatient cardiovascular regimen including daily diuretics
Continue IV diuresis. IV Lasix 80 mg twice daily with addition of metolazone
Attempt to wean off oxygen.
Cardiology consultation
With severe pulmonary hypertension, may need additional evaluation with RHC
Continue Cardura, losartan, diltiazem
SOCO
CKD stage IIIa with baseline creatinine 1.2.
Suspect cardiorenal state.
Improvement with diuresis.
Continue losartan with caution monitor renal function
Acute urine retention
Likely contributing to SOCO.
Creatinine plateau 1.4.
PVR 600-700 cc.
Easton catheter placed on 10/12
UTI. Complicated with retention
Symptomatic on admission
Continued ceftriaxone pending urine cultures.
PAD with history of right lower extremity wound and balloon angioplasty on right posterior tibial artery
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
Will repeat TREVA/PVR
Continue wound care
On chronic antibiotic suppression for wounds as outpatient.
CAD denies any chest pain
ECG with A-fib with no ischemia.
Echo with no regional wall motion abnormalities
Permanent atrial fibrillation.
Rate control with diltiazem.
Anticoagulations Coumadin with goal for INR 2-3. Monitor daily while on antibiotics.
Prediabetes
Hemoglobin A1c 5.8
Continue to monitor sugars daily
Anticipated Discharge: > 48 hours
Subjective/Interval History
-
Date of Service: October 12, 2024
Objective Data
-
Labs:
Laboratory Results
10/12/24
07:24
WBC 9.8
Hgb 11.7 L
Hct 36.5 L
Plt Count 242
PT 26.6 H
INR 2.45
Sodium 144
Potassium 4.2
Chloride 108 H
Carbon Dioxide 26
BUN 38 H
Creatinine 1.4 H
Glucose 106 H
Calcium 9.3
Vital Signs:
Vital Signs
Temp Pulse Resp BP Pulse Ox
97.5 F 88 20 137/71 94
10/12/24 15:49 10/12/24 15:49 10/12/24 15:49 10/12/24 15:49 10/12/24 15:49
I&O
10/11/24 10/12/24 10/13/24
06:59 06:59 06:59
Intake Total 460 / 460 1620 / 1620
Output Total 2400 / 2400 1825 / 1825
Balance -1940 / -1940 - / -
Physical Exam
-
General: Well Developed and No Apparent Distress
HEENT: Normocephalic, Atraumatic and Moist Mucous Membranes
Respiratory: Clear to Auscultation
Cardiac: Regular Rhythm and S1/S2; Negative Murmur, Rub or Gallop
GI: Soft, Nontender, Nondistended and Normal Bowel Sounds; Negative Organomegaly
Rectal: Deferred by Provider
Musculoskeletal: No Clubbing, No Cyanosis and No Edema
Skin: Negative Rash
Neuro: Nonfocal/Grossly Intact
[2024-10-12 16:49] LABS: Glucose - Point of Care 109 mg/dl (70-99)
[2024-10-12] MEDS: COUMADIN 3 MG PO (17:30)
[2024-10-12] MEDS: LIPITOR 40 MG PO (17:30)
[2024-10-12] MEDS: FEOSOL 325 MG PO (17:30)
[2024-10-12] MEDS: ROCEPHIN 1000 MG IV (17:31)
[2024-10-12] MEDS: CARDURA 2 MG PO (17:31)
[2024-10-12] MEDS: STERILE WATER FOR INJECTION 10 ML IV (17:31)
[2024-10-12] MEDS: CARDIZEM CD 120 MG PO (19:40)
[2024-10-12] MEDS: ROBITUSSIN 100 MG PO (20:44)
[2024-10-12 21:11] LABS: Glucose - Point of Care 117 mg/dl (70-99)
[2024-10-13 03:13] VITALS: BP 118/61
[2024-10-13 06:00] VITALS: BMI 24.6
[2024-10-13 07:00] VITALS: BP 122/57
[2024-10-13 07:21] LABS: Hematocrit 35.6 % (39.0-52.0); Hemoglobin 11.7 g/dL (13.0-18.0); Mean Corp Hgb Conc. 32.9 g/dL (33.0-37.0); Mean Corpuscular Volume 88.1 fL (80.0-94.0); Mean Platelet Volume 10.2 fL (7.4-10.4); Platelet Count 249 10^3/uL (130-400); Red Blood Cell Count 4.04 10^6/uL (4.70-6.10); Red Cell Dist. Width 15.1 % (11.5-14.5)
[2024-10-13 07:27] LABS: INR 2.71; PT 28.7 Sec (11.4-14.6)
[2024-10-13 07:54] LABS: Blood Urea Nitrogen 42 mg/dl (9-20); Carbon Dioxide 29 mmol/L (22-30); Chloride 104 mmol/L (98-107); Estimated Creatinine Clearance 42 ml/min; Glucose 103 mg/dl (70-99); Magnesium 2.3 mg/dl (1.6-2.3); Potassium 3.5 mmol/L (3.5-5.1); Sodium 143 mmol/L (135-145); eGFR 48.65
[2024-10-13 08:09] LABS: Glucose - Point of Care 104 mg/dl (70-99)
--- NOTE | 2024-10-13 08:37 | W.PN.CD ---
Today's Communication / Plan
-
metolazone 5mg x1 prior to AM lasix, and continue lasix 80mg IV bid
assess for transition to PO tomorrow
Impression / Plan
-
SOB:
-Cor Pulmonale, severe pulm HTN, HFpEF ([id number]): requiring hospitalization and close monitoring of labs, tele
-Echo 10/11/24: EF 55-60%. Mild/moderate mitral regurgitation. Normally functioning 23mm Chambers S3 TAVR. Peak gradient 23mmHg/Mean gradient 13mmHg. Mildly dilated right ventricle. Mildly reduced RV systolic function. Moderate TR. Severely elevated
PASP. PAP 85-90 mmHg.
-OP regimen includes Lasix 160 mg PO in AM and 80 mg in PM, and PRN metolazone 2.5 mg (takes if weight goes up 3 lbs overnight or gets close to 200 lbs)- typically 1-3 x per week.
-dry weight unclear: now at 186 lb
- will likely d/c on twice weekly metolazone
- metolazone 5mg x1 prior to AM lasix, and continue lasix 80mg IV bid
-assess for transition to PO tomorrow
s/p TAVR:
-stable by echo
AFIB: permanent
-continue warfarin and follow INR's (In range today)
-continue diltiazem
CAD with hx stenting:
-stable
-on ASA and statin
SOCO on CKD3a:
-monitor with diuresis
Physical Exam
Vital Signs/Labs
Vital Signs
Temp Pulse Resp BP Pulse Ox
98.2 F 82 20 118/61 93
10/13/24 03:13 10/13/24 03:13 10/13/24 03:13 10/13/24 03:13 10/13/24 03:13
10/12/24 10/13/24 10/14/24
06:59 06:59 06:59
Actual Weight 86.364 kg 84.425 kg
10/13/24 06:51
10/13/24 06:51
PT 28.7 Sec (11.4-14.6) H 10/13/24 06:51
INR 2.71 10/13/24 06:51
Magnesium 2.3 mg/dl (1.6-2.3) 10/13/24 06:51
10/10/24
08:55
Wio-T-Ldzwoldfrhe Pept 2860
Physical Exam
Constitutional: No acute distress and Comfortable
EENT: Moist mucous membranes
Cardiovascular: Pedal edema is absent, Systolic murmur absent, Rhythm/rate is irregular and JVD present
Respiratory: Respiratory effort normal
Neuro/Psych: AO x 3
Data Reviewed
-
Date of Service: October 13, 2024
EKG: Other (Tele: A fib 70s)
Labs: Labs Reviewed by me
[2024-10-13] MEDS: ZAROXOLYN 5 MG PO (09:22)
[2024-10-13] MEDS: PROTONIX 40 MG PO (09:23)
[2024-10-13] MEDS: THERAGRAN 1 TABLET PO (09:23)
[2024-10-13] MEDS: COZAAR 100 MG PO (09:23)
[2024-10-13] MEDS: ASPIR LOW (ENTERIC COATED) 81 MG PO (09:26)
[2024-10-13] MEDS: BACTROBAN 2% OINTMENT 1 APPLIC TOPICAL (09:26)
[2024-10-13] MEDS: COLCHICINE 0.6 MG PO (09:26)
[2024-10-13] MEDS: KCL 40 MEQ PO ×2 (09:26→20:13)
[2024-10-13] MEDS: LASIX 80 MG IV ×2 (10:03→15:47)
[2024-10-13 11:00] VITALS: BP 103/46
[2024-10-13 12:40] LABS: Glucose - Point of Care 113 mg/dl (70-99)
--- NOTE | 2024-10-13 13:53 | CON.VAS ---
Consultation
Consultation Request
Performing Provider: George
Reason for Consultation: PAD eval, chronic wounds
Medical History
-
Chief Complaint: SOB
History of Present Illness:
88 yo male with PMH chronic HFpEF, perm afib (warfarin), s/p TAVR, CAD s/p LAD stent, PAD, pulm htn, former smoker admitted for SOB and fluid retention. Chronic wounds to BL LE noted during this admission.
Arterial US impression: Right leg: TREVA unobtainable secondary to noncompressible vessels. TREVA slightly decreased measuring 0.61. Multiphasic flow within the common femoral through popliteal arteries no focal stenosis appreciated. Monophasic flow
within the posterior tibial artery suggesting presence of infrapopliteal disease.
Left leg: TREVA measures 0.95. TBI 0.79. Multiphasic flow within the common femoral through popliteal arteries with no focal stenosis appreciated. Multiphasic pedal flow.
Vascular consult for nonhealing wounds. Patient known to Dr Easton in the outpatient setting has had several angiographies. Chronic bilateral lower extremity wounds. Partial foot amputations bilaterally (right fifth metatarsal). Now with
left-sided wounds. As pictured in wound care notes. 2+ femoral pulses palpable. On the right side he has a 1+ DP palpable. Nonpalpable on the left. Feet are both warm. No rubor, no signs of infection.
Past Medical History
Past Medical History: Arrhythmias (afib on coumadin), CAD, Cancer, CHF, HTN, NIDDM, ID, Renal Failure and Valvular Disease
Past Surgical History: Cardiac (TAVR, LAD stent) and Other (Partial foot amputations BL, TAVR, LAD stent, carotid stent, [employer] RLE, hernia repair)
Social History
Tobacco: Former Smoker
Alcohol: Daily
Drug: None
Family History
Family History: Reviewed & Not Pertinent
Allergies / Home Medications
Allergy/AdvReac Type Severity Reaction Status Date / Time
cefazolin Allergy Rash; Verified 10/10/24 08:28
tolerates
PCN
clopidogrel [From Plavix] Allergy Rash Verified 10/10/24 08:28
�Medication �Instructions �Recorded �Confirmed �Type
multivitamin with folic acid 400 1 tab PO DAILY Supplement 10/16/18 10/10/24 History
mcg tablet (Tab-A-Janay)
atorvastatin 40 mg tablet 40 mg PO QPM #90 tabs 01/20/19 10/10/24 Rx
pantoprazole 40 mg tablet,delayed 40 mg PO DAILY ##90 01/20/19 10/10/24 Rx
release
aspirin 81 mg tablet,delayed 81 mg PO DAILY Blood clot 08/08/19 10/10/24 History
release prevention/tx
furosemide 80 mg tablet 80 mg PO DAILY Fluid 08/09/19 10/10/24 History
retention/Swelling
ferrous sulfate 325 mg (65 mg 325 mg PO QPM Supplement 05/23/21 10/10/24 History
iron) tablet (FeroSul)
potassium chloride 20 mEq 40 meq PO BID Electrolyte Repletion 05/23/21 10/10/24 History
tablet,extended
release(part/cryst) (Klor-Con M)
colchicine 0.6 mg tablet 0.6 mg PO DAILY Gout 03/01/22 10/10/24 History
penicillin V potassium 500 mg 500 mg PO BID Infection 03/01/22 10/10/24 History
tablet
warfarin 3 mg tablet 3 mg PO @1800 Blood Clot 03/01/22 10/10/24 History
Prevention/Tx
warfarin 6 mg tablet 6 mg PO SuMoFrSa@1800 03/01/22 10/10/24 History
losartan 100 mg tablet 100 mg PO DAILY Blood Pressure 04/01/22 10/10/24 History
acetaminophen 325 mg tablet 650 mg PO DAILYPRN PRN mild pain 10/10/24 10/10/24 History
(Tylenol)
diltiazem HCl 120 mg capsule,24 120 mg PO HS Heart 10/10/24 10/10/24 History
hr,extended release Disease/Condition
doxazosin 2 mg tablet 2 mg PO QPM 10/10/24 10/10/24 History
furosemide 80 mg tablet (Lasix) 80 mg PO QPM 10/10/24 10/10/24 History
metformin 500 mg tablet 500 mg PO QPM Diabetes 10/10/24 10/10/24 History
Review of Systems
-
History Source: Patient
All other systems: Negative unless noted
Constitutional: Reports No Symptoms
EENT: Reports No Symptoms
Respiratory: Reports Trouble Breathing (resolved)
Cardiac: Reports No Symptoms
Vascular: Denies Leg Pain / Claudication
Abdomen/GI: Reports No Symptoms
: Reports No Symptoms
Musculoskeletal: Reports Edema
Skin: Reports Other (nonhealing wounds)
Neurological: Reports No Symptoms
Physical Exam
Vital Signs
Temp Pulse Resp BP Pulse Ox
97.6 F 75 18 103/46 95
10/13/24 11:00 10/13/24 11:00 10/13/24 11:00 10/13/24 11:00 10/13/24 11:00
Lab Results
10/13/24 06:51
10/13/24 06:51
Xnd-D-Bjxwtuavnam Pept 2860 pg/ml 10/10/24 08:55
Physical Exam
General: No Apparent Distress
HEENT: Normocephalic and Atraumatic
Respiratory: Non Labored Respirations
Cardiac: Negative JVD
GI: Soft and Non Tender
Musculoskeletal: No Clubbing, No Cyanosis and Edema (+1 BL LE)
Skin: Warm and Other (See wound care notes for pictures)
Neuro: Awake, Alert and Oriented
Psych: Calm
Pulses: Bilateral Femoral: +2 and Right Dorsalis Pedis: +1
Assessment / Plan
-
Plan/as discussed and noted in Full consultation note. Relatively small superficial chronic wounds. Can follow-up in the outpatient setting for further evaluation, and can plan angiography of the left lower extremity if wound continues to be
nonhealing. Would allow recovery from his current condition (shortness of breath which was his admitting diagnosis).
Data Reviewed
-
Labs: Labs Reviewed by me
--- NOTE | 2024-10-13 13:54 | W.PN.UPDATE ---
Update Note
Progress Note Update
Seen and evaluated with DINORAH Nieves. Full consultation to follow. Patient known to Rustam in the outpatient setting has had several angiographies. Chronic bilateral lower extremity wounds. Partial foot amputations bilaterally (right fifth
metatarsal). Now with left-sided wounds. As pictured in wound care notes. 2+ femoral pulses palpable. On the right side he has a 1+ DP palpable. Nonpalpable on the left. Feet are both warm. No rubor, no signs of infection. Plan/as discussed
and noted in Full consultation note. Relatively small superficial chronic wounds. Can follow-up in the outpatient setting for further evaluation, and can plan angiography of the left lower extremity if wound continues to be nonhealing. Would
allow recovery from his current condition (shortness of breath which was his admitting diagnosis).
[2024-10-13 15:00] VITALS: BP 126/56
--- NOTE | 2024-10-13 15:11 | W.PN.HOSP.TC ---
Today's Communication/Plan
-
IV diuresis
Maintain Easton catheter.
Monitor renal function
Continue IV antibiotics for UTI
Attempt to wean off O2 as tolerated/Home O2 assessment
Assessment / Plan
Assessment / Plan
Impression:
Acute hypoxic respiratory failure secondary to CHF exacerbation.
Acute CHF preserved EF exacerbation.
Severe pulmonary hypertension.
SOCO possibly secondary to cardiorenal
UTI uncomplicated
Other conditions
Aortic stenosis status post TAVR.
Permanent atrial fibrillation
Anticoagulation with Coumadin
Systemic hypertension
Diabetes mellitus type 2.
CKD stage IIIa with baseline creatinine 1.2
CAD
PAD.
Dyslipidemia
GERD.
Gout.
Asthma
Plan:
Echo 10/11
Normal left ventricular systolic function. Left ventricular ejection fraction
is 55-60%.
Mild/moderate mitral regurgitation.
Normally functioning 23mm Chambers S3 TAVR. Peak gradient 23mmHg/Mean gradient
13mmHg.
Mildly dilated right ventricle. Mildly reduced right ventricular systolic
function.
Moderate tricuspid regurgitation. Severely elevated PASP. Estimated pulmonary
artery pressure of 85-90 mmHg assuming a right atrial pressure of 15 mmHg.
Compared to 05/27/24: MR has improved from moderate to mild/moderate. Moderate
TR is stable. PASP was 80-90 mmHg at that time (stable).
Acute hypoxic respiratory failure secondary to CHF exacerbation
Acute CHF preserved EF
Pulmonary hypertension
Reports improvement with diuresis. Weight 80-85 kg since admission. Currently on O2 at 2 L with no distress.
Repeated echo as above.
Reports compliance with outpatient cardiovascular regimen including daily diuretics
Continue IV diuresis. IV Lasix 80 mg twice daily with addition of metolazone
Attempt to wean off oxygen.
Cardiology consultation
With severe pulmonary hypertension, may need additional evaluation with [facility]
Continue Cardura, losartan, diltiazem
SOCO
CKD stage IIIa with baseline creatinine 1.2.
Suspect cardiorenal state.
Improvement with diuresis.
Continue losartan with caution monitor renal function
Acute urine retention
Likely contributing to SOCO.
Creatinine plateau 1.4.
PVR 600-700 cc.
Easton catheter placed on 10/12
UTI. Complicated with retention
Urine culture with sensitive E. coli
Symptomatic on admission
Continued ceftriaxone to complete 5-day course of treatment
PAD with history of right lower extremity wound and balloon angioplasty on right posterior tibial artery
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
TREVA/PVR reviewed
Vascular surgery input appreciated with plan for outpatient follow-up
Continue wound care
On chronic antibiotic suppression for wounds as outpatient.
CAD denies any chest pain
ECG with A-fib with no ischemia.
Echo with no regional wall motion abnormalities
Permanent atrial fibrillation.
Rate control with diltiazem.
Anticoagulations Coumadin with goal for INR 2-3. Monitor daily while on antibiotics.
Prediabetes
Hemoglobin A1c 5.8
Continue to monitor sugars daily
Anticipated Discharge: > 48 hours
Subjective/Interval History
-
Date of Service: October 13, 2024
Objective Data
-
Labs:
Laboratory Results
10/13/24
06:51
WBC 9.0
Hgb 11.7 L
Hct 35.6 L
Plt Count 249
PT 28.7 H
INR 2.71
Sodium 143
Potassium 3.5
Chloride 104
Carbon Dioxide 29
BUN 42 H
Creatinine 1.4 H
Glucose 103 H
Calcium 9.0
Vital Signs:
Vital Signs
Temp Pulse Resp BP Pulse Ox
97.6 F 75 18 103/46 95
10/13/24 11:00 10/13/24 11:00 10/13/24 11:00 10/13/24 11:00 10/13/24 11:00
I&O
10/12/24 10/13/24 10/14/24
06:59 06:59 06:59
Intake Total 1620 / 1620 1080 / 1080
Output Total 1825 / 1825 4520 / 4520
Balance -205 / -205 -3440 / -3440
Physical Exam
-
General: Well Developed and No Apparent Distress
HEENT: Normocephalic, Atraumatic and Moist Mucous Membranes
Respiratory: Clear to Auscultation
Cardiac: Regular Rhythm and S1/S2; Negative Murmur, Rub or Gallop
GI: Soft, Nontender, Nondistended and Normal Bowel Sounds; Negative Organomegaly
Rectal: Deferred by Provider
Musculoskeletal: No Clubbing, No Cyanosis and No Edema
Skin: Negative Rash
Neuro: Nonfocal/Grossly Intact
[2024-10-13] MEDS: ROCEPHIN 1000 MG IV (15:49)
[2024-10-13] MEDS: STERILE WATER FOR INJECTION 10 ML IV (15:50)
[2024-10-13 16:16] LABS: Glucose - Point of Care 93 mg/dl (70-99)
[2024-10-13] MEDS: CARDURA 2 MG PO (17:03)
[2024-10-13] MEDS: COUMADIN 3 MG PO (17:03)
[2024-10-13] MEDS: LIPITOR 40 MG PO (17:04)
[2024-10-13] MEDS: FEOSOL 325 MG PO (17:04)
--- NOTE | 2024-10-13 17:14 | CM ---
Pt weaning off oxygen .
Pt has Easton cath He said he will not being going home with Easton . Offered V he declined
IMM given signed on chart.
Brown will drive him home at [place].
PLAN HOme no needs Watch for Easton
[2024-10-13 19:57] VITALS: BP 113/53
[2024-10-13] MEDS: CARDIZEM CD 120 MG PO (20:14)
[2024-10-13] MEDS: ROBITUSSIN 100 MG PO (20:18)
[2024-10-13 21:23] LABS: Glucose - Point of Care 105 mg/dl (70-99)
[2024-10-13 23:16] VITALS: BP 114/57
[2024-10-14] VITALS (7 sets, daily range): BP systolic 109–123; BP diastolic 42–59; BMI 24.5
[2024-10-14 05:34] LABS: Hematocrit 35.7 % (39.0-52.0); Hemoglobin 11.8 g/dL (13.0-18.0); Mean Corp Hgb Conc. 33.1 g/dL (33.0-37.0); Mean Corpuscular Hgb 29.1 pg (27.0-31.0); Mean Corpuscular Volume 88.1 fL (80.0-94.0); Platelet Count 237 10^3/uL (130-400); Red Blood Cell Count 4.05 10^6/uL (4.70-6.10); Red Cell Dist. Width 15.2 % (11.5-14.5); White Blood Cell Count 8.3 10^3/uL (4.8-10.8)
[2024-10-14 05:52] LABS: INR 2.42; PT 26.7 Sec (11.4-14.6)
[2024-10-14 06:04] LABS: Blood Urea Nitrogen 51 mg/dl (9-20); Calcium 8.8 mg/dl (8.4-10.2); Carbon Dioxide 30 mmol/L (22-30); Chloride 101 mmol/L (98-107); Estimated Creatinine Clearance 35 ml/min; Glucose 105 mg/dl (70-99); Magnesium 2.2 mg/dl (1.6-2.3); Potassium 3.1 mmol/L (3.5-5.1); Sodium 141 mmol/L (135-145); eGFR 38.53
[2024-10-14 07:05] LABS: Glucose - Point of Care 121 mg/dl (70-99)
[2024-10-14] MEDS: PROTONIX 40 MG PO (08:36)
[2024-10-14] MEDS: KCL 40 MEQ PO ×3 (08:36→21:18)
[2024-10-14] MEDS: COLCHICINE 0.6 MG PO (08:37)
[2024-10-14] MEDS: LASIX 80 MG IV (08:37)
[2024-10-14] MEDS: ASPIR LOW (ENTERIC COATED) 81 MG PO (08:37)
[2024-10-14] MEDS: COZAAR 100 MG PO (08:37)
[2024-10-14] MEDS: THERAGRAN 1 TABLET PO (08:37)
[2024-10-14] MEDS: BACTROBAN 2% OINTMENT 1 APPLIC TOPICAL (08:37)
--- NOTE | 2024-10-14 09:57 | W.PN.CD ---
Today's Communication / Plan
-
Creatinine up to 1.7. Suspect patient at dry weight at 84.1 kg
Wean O2 to off
Replace potassium
Would recommend further improvement of potassium and weaning of oxygen before considering discharge. Patient may require 1 more day of treatment in order to help with smooth transition to home
Discontinue IV Lasix
Resume oral Lasix at 80 mg twice daily
Spironolactone
Impression / Plan
-
SOB:
-Cor Pulmonale, severe pulm HTN, HFpEF ([id number]): requiring hospitalization and close monitoring of labs, tele
-Echo 10/11/24: EF 55-60%. Mild/moderate mitral regurgitation. Normally functioning 23mm Chambers S3 TAVR. Peak gradient 23mmHg/Mean gradient 13mmHg. Mildly dilated right ventricle. Mildly reduced RV systolic function. Moderate TR. Severely elevated
PASP. PAP 85-90 mmHg.
-OP regimen includes Lasix 160 mg PO in AM and 80 mg in PM, and PRN metolazone 2.5 mg (takes if weight goes up 3 lbs overnight or gets close to 200 lbs)- typically 1-3 x per week.
-dry weight unclear: now at 186 lb
- will likely d/c on twice weekly metolazone 2.5mg
-Responded to metolazone. Suspect that dry weight with creatinine up to 1.7. Weight currently 84.1 kg
-Remains on 1 L nasal cannula will try to wean to off. Patient not on O2 at home
-Potassium down to 3.1 needs additional replacement. Would hold on additional IV Lasix and replace potassium.
-Patient already on significant potassium replacement 40 mEq twice daily at home. Will be hard to keep up with potassium if he remains on both Lasix and intermittent metolazone.
-Would add spironolactone but will need to monitor potassium very closely and monitor renal function.
-Patient will need weekly renal profile for 4 weeks post discharge
s/p TAVR:
-stable by echo
AFIB: permanent
-continue warfarin and follow INR's (In range today)
-continue diltiazem
CAD with hx stenting:
-stable
-on ASA and statin
SOCO on CKD3a:
-monitor with diuresis
Physical Exam
Vital Signs/Labs
Vital Signs
Temp Pulse Resp BP Pulse Ox
97.5 F 81 20 117/59 94
10/14/24 07:05 10/14/24 08:37 10/14/24 07:05 10/14/24 08:37 10/14/24 07:05
10/13/24 10/14/24 10/15/24
06:59 06:59 06:59
Actual Weight 84.425 kg 84.141 kg
10/14/24 05:21
10/14/24 05:21
PT 26.7 Sec (11.4-14.6) H 10/14/24 05:21
INR 2.42 10/14/24 05:21
Magnesium 2.2 mg/dl (1.6-2.3) 10/14/24 05:21
10/10/24
08:55
[id number] Pept 2860
Physical Exam
Constitutional: No acute distress
Cardiovascular: Rhythm/rate is irregular
Respiratory: Respiratory effort normal
GI: Soft
Neuro/Psych: Alert
Data Reviewed
-
Date of Service: October 14, 2024
Medical Decision Making: Reviewed Test Results
Echo: Report Reviewed by me
Medical Tests (PFT, Pathology etc): Report Reviewed by me
Labs: Labs Reviewed by me
[2024-10-14 12:12] LABS: Glucose - Point of Care 140 mg/dl (70-99)
--- NOTE | 2024-10-14 13:00 | CM ---
Pt weaned down to 1 liter Oxygen Pox 96%.
Will need home oxygen test closer to dc.
Will change to po Lasix prior to discharge.
Easton remains.Pt said she will not go home with Easton.
Offered VN pt declined.
Maintained oN IV antibiotics.
PLAN Home no needs
--- NOTE | 2024-10-14 15:29 | W.PN.HOSP.TC ---
Today's Communication/Plan
-
Transition to oral Lasix
Maintain Easton catheter
Follow creatinine while on Lasix and Aldactone
Hold valsartan
Continue IV antibiotics to complete 5-day course of treatment for UTI complicated with acute urinary retention
Home O2 assessment
Assessment / Plan
Assessment / Plan
Impression:
Acute hypoxic respiratory failure secondary to CHF exacerbation.
Acute CHF preserved EF exacerbation.
Severe pulmonary hypertension.
SOCO possibly secondary to cardiorenal
UTI uncomplicated
Other conditions
Aortic stenosis status post TAVR.
Permanent atrial fibrillation
Anticoagulation with Coumadin
Systemic hypertension
Diabetes mellitus type 2.
CKD stage IIIa with baseline creatinine 1.2
CAD
PAD.
Dyslipidemia
GERD.
Gout.
Asthma
Plan:
Echo 10/11
Normal left ventricular systolic function. Left ventricular ejection fraction
is 55-60%.
Mild/moderate mitral regurgitation.
Normally functioning 23mm Chambers S3 TAVR. Peak gradient 23mmHg/Mean gradient
13mmHg.
Mildly dilated right ventricle. Mildly reduced right ventricular systolic
function.
Moderate tricuspid regurgitation. Severely elevated PASP. Estimated pulmonary
artery pressure of 85-90 mmHg assuming a right atrial pressure of 15 mmHg.
Compared to 05/27/24: MR has improved from moderate to mild/moderate. Moderate
TR is stable. PASP was 80-90 mmHg at that time (stable).
Acute hypoxic respiratory failure secondary to CHF exacerbation
Acute CHF preserved EF
Pulmonary hypertension
Reports improvement with diuresis. Weight 80-85 kg since admission. Currently on O2 at 2 L with no distress.
Repeated echo as above.
Reports compliance with outpatient cardiovascular regimen including daily diuretics
Transition to oral Lasix on 10/14
Added Aldactone
Attempt to wean off oxygen. Home O2 assessed
With severe pulmonary hypertension, may need additional evaluation with [facility]
Continue Cardura, losartan, diltiazem
SOCO
CKD stage IIIa with baseline creatinine 1.2.
Suspect cardiorenal state. With possibly component of retention
Creatinine bumped at 1.7
Maintain Easton
Hold losartan
Continue Lasix/Aldactone
Acute urine retention
Likely contributing to SOCO.
Creatinine plateau 1.4.
PVR 600-700 cc.
Easton catheter placed on 10/12
UTI. Complicated with retention
Urine culture with sensitive E. coli
Symptomatic on admission
Continued ceftriaxone to complete 5-day course of treatment
PAD with history of right lower extremity wound and balloon angioplasty on right posterior tibial artery
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
TREVA/PVR reviewed
Vascular surgery input appreciated with plan for outpatient follow-up
Continue wound care
On chronic antibiotic suppression for wounds as outpatient.
CAD denies any chest pain
ECG with A-fib with no ischemia.
Echo with no regional wall motion abnormalities
Permanent atrial fibrillation.
Rate control with diltiazem.
Anticoagulations Coumadin with goal for INR 2-3. Monitor daily while on antibiotics.
Prediabetes
Hemoglobin A1c 5.8
Continue to monitor sugars daily
Anticipated Discharge: 24 - 48 hours
Subjective/Interval History
-
Date of Service: October 14, 2024
Objective Data
-
Labs:
Laboratory Results
10/14/24
05:21
WBC 8.3
Hgb 11.8 L
Hct 35.7 L
Plt Count 237
PT 26.7 H
INR 2.42
Sodium 141
Potassium 3.1 L
Chloride 101
Carbon Dioxide 30
BUN 51 H
Creatinine 1.7 H
Glucose 105 H
Calcium 8.8
Vital Signs:
Vital Signs
Temp Pulse Resp BP Pulse Ox
97.5 F 73 20 112/48 96
10/14/24 11:29 10/14/24 11:29 10/14/24 11:29 10/14/24 11:29 10/14/24 11:29
I&O
10/13/24 10/14/24 10/15/24
06:59 06:59 06:59
Intake Total 1080 / 1080 2280 / 2280 660 / 660
Output Total 4520 / 4520 1924 / 1924
Balance -3440 / -3440 355 / 355 660 / 660
Physical Exam
-
General: Well Developed and No Apparent Distress
HEENT: Normocephalic, Atraumatic and Moist Mucous Membranes
Respiratory: Clear to Auscultation
Cardiac: Regular Rhythm and S1/S2; Negative Murmur, Rub or Gallop
GI: Soft, Nontender, Nondistended and Normal Bowel Sounds; Negative Organomegaly
Rectal: Deferred by Provider
Musculoskeletal: No Clubbing, No Cyanosis and No Edema
Skin: Negative Rash
Neuro: Nonfocal/Grossly Intact
[2024-10-14] MEDS: LASIX 80 MG PO (16:36)
[2024-10-14] MEDS: STERILE WATER FOR INJECTION 10 ML IV (16:37)
[2024-10-14] MEDS: ROCEPHIN 1000 MG IV (16:37)
[2024-10-14 16:57] LABS: Glucose - Point of Care 132 mg/dl (70-99)
[2024-10-14] MEDS: FEOSOL 325 MG PO (17:08)
[2024-10-14] MEDS: CARDURA 2 MG PO (17:08)
[2024-10-14] MEDS: LIPITOR 40 MG PO (17:08)
[2024-10-14] MEDS: COUMADIN 3 MG PO (17:10)
[2024-10-14 21:17] LABS: Glucose - Point of Care 125 mg/dl (70-99)
[2024-10-14] MEDS: CARDIZEM CD 120 MG PO (21:17)
[2024-10-15 03:13] VITALS: BP 108/48
[2024-10-15 05:59] LABS: Hematocrit 35.5 % (39.0-52.0); Mean Corp Hgb Conc. 33.8 g/dL (33.0-37.0); Mean Corpuscular Hgb 29.9 pg (27.0-31.0); Mean Corpuscular Volume 88.5 fL (80.0-94.0); Mean Platelet Volume 10.3 fL (7.4-10.4); Platelet Count 235 10^3/uL (130-400); Red Blood Cell Count 4.01 10^6/uL (4.70-6.10); Red Cell Dist. Width 15.1 % (11.5-14.5); White Blood Cell Count 9.1 10^3/uL (4.8-10.8)
[2024-10-15 06:00] VITALS: BMI 24.4
[2024-10-15 06:11] LABS: INR 2.23; PT 25.1 Sec (11.4-14.6)
[2024-10-15 06:24] LABS: Blood Urea Nitrogen 61 mg/dl (9-20); Calcium 8.7 mg/dl (8.4-10.2); Carbon Dioxide 30 mmol/L (22-30); Chloride 101 mmol/L (98-107); Estimated Creatinine Clearance 35 ml/min; Glucose 106 mg/dl (70-99); Magnesium 2.3 mg/dl (1.6-2.3); Potassium 3.6 mmol/L (3.5-5.1); Sodium 140 mmol/L (135-145); eGFR 38.53
[2024-10-15 07:05] VITALS: BP 122/59
[2024-10-15 07:15] LABS: Glucose - Point of Care 106 mg/dl (70-99)
[2024-10-15] MEDS: THERAGRAN 1 TABLET PO (07:55)
[2024-10-15] MEDS: ALDACTONE 25 MG PO (07:55)
[2024-10-15] MEDS: KCL 40 MEQ PO ×2 (07:55→21:14)
[2024-10-15] MEDS: PROTONIX 40 MG PO (07:55)
[2024-10-15] MEDS: ASPIR LOW (ENTERIC COATED) 81 MG PO (07:55)
[2024-10-15] MEDS: COLCHICINE 0.6 MG PO (07:55)
[2024-10-15] MEDS: LASIX 80 MG PO ×2 (07:55→17:17)
[2024-10-15] MEDS: BACTROBAN 2% OINTMENT 1 APPLIC TOPICAL (07:56)
[2024-10-15 11:30] VITALS: BP 96/53
[2024-10-15 11:41] LABS: Glucose - Point of Care 123 mg/dl (70-99)
--- NOTE | 2024-10-15 12:51 | W.PN.CD ---
Addendum entered and electronically signed by Dario Rowley MD 10/15/24 14:56:
I saw and examined the patient.
The PROTECTIVE SERVICES CASE WORKER's note was reviewed and I agree with the note.
Comment:
88 yo M known to Dr. Elizabeth with acute on chronic HFpEF. Now feeling improved. Cr 1.7 but that's what it was in Apr 2024.
Physical exam with irregular rhythm, no murmurs, clear lungs, no LE edema.
HFpEF exacerbation has improved. Discharge regimen: Lasix 80mg PO BID, Spironolactone 25mg daily. BMP weekly for 4 weeks.
Original Note:
Today's Communication / Plan
-
Now on Lasix 80mg BID, continue as outpatient.
Will need BMP weekly for 4 weeks.
Impression / Plan
-
Cor Pulmonale, severe pulm HTN, HFpEF ([id number]): improved with diuresis, feeling better.
- diuresed down to 185 lbs, dry weight.
-Echo 10/11/24: EF 55-60%. Mild/moderate mitral regurgitation. Normally functioning 23mm Chambers S3 TAVR. Peak gradient 23mmHg/Mean gradient 13mmHg. Mildly dilated right ventricle. Mildly reduced RV systolic function. Moderate TR. Severely elevated
PASP. PASP 85-90 mmHg.
-Now on Lasix 80mg BID, continue as outpatient.
-Tolerating Aldactone, continue.
-Will need BMP weekly for 4 weeks.
s/p TAVR:
-stable by echo
AFIB: permanent
-continue warfarin and follow INR's, 2.23 today.
-continue diltiazem
CAD: prior PCI.
-stable
-on ASA and statin
SOCO on CKD3a:
-stable creatinine 1.7.
-holding losartan.
Physical Exam
Vital Signs/Labs
Vital Signs
Temp Pulse Resp BP Pulse Ox
97.5 F 76 20 96/53 96
10/15/24 11:30 10/15/24 11:30 10/15/24 11:30 10/15/24 11:30 10/15/24 11:30
10/14/24 10/15/24 10/16/24
06:59 06:59 06:59
Actual Weight 185 lb 8 oz 185 lb 1.6 oz
10/15/24 05:37
10/15/24 05:37
PT 25.1 Sec (11.4-14.6) H 10/15/24 05:37
INR 2.23 10/15/24 05:37
Magnesium 2.3 mg/dl (1.6-2.3) 10/15/24 05:37
10/10/24
08:55
[id number] Pept 2860
Physical Exam
Constitutional: No acute distress and Comfortable
EENT: Anicteric and Moist mucous membranes
Cardiovascular: Rhythm & rate is regular
Respiratory: Respiratory effort normal
GI: Soft, Non tender and Normal bowel sounds
Neuro/Psych: AO x 3
Other: Skin (warm, dry)
Data Reviewed
-
Date of Service: October 15, 2024
Medical Decision Making: Reviewed Test Results
EKG: Tracing Personally Visualized and interpreted
Echo: Report Reviewed by me
Labs: Labs Reviewed by me
Old Records: Reviewed
--- NOTE | 2024-10-15 14:25 | W.PN.HOSP.TC ---
Today's Communication/Plan
-
Continue oral diuretics
Discontinue Easton catheter for trial of voiding
Completed course of ceftriaxone for complicated UTI as of 10/15.
Case management consultation for home O2 set up.
Discharge planning
Assessment / Plan
Assessment / Plan
Impression:
Acute hypoxic respiratory failure secondary to CHF exacerbation.
Acute CHF preserved EF exacerbation.
Severe pulmonary hypertension.
SOCO possibly secondary to cardiorenal
UTI uncomplicated
Other conditions
Aortic stenosis status post TAVR.
Permanent atrial fibrillation
Anticoagulation with Coumadin
Systemic hypertension
Diabetes mellitus type 2.
CKD stage IIIa with baseline creatinine 1.2
CAD
PAD.
Dyslipidemia
GERD.
Gout.
Asthma
Plan:
Echo 10/11
Normal left ventricular systolic function. Left ventricular ejection fraction
is 55-60%.
Mild/moderate mitral regurgitation.
Normally functioning 23mm Chambers S3 TAVR. Peak gradient 23mmHg/Mean gradient
13mmHg.
Mildly dilated right ventricle. Mildly reduced right ventricular systolic
function.
Moderate tricuspid regurgitation. Severely elevated PASP. Estimated pulmonary
artery pressure of 85-90 mmHg assuming a right atrial pressure of 15 mmHg.
Compared to 05/27/24: MR has improved from moderate to mild/moderate. Moderate
TR is stable. PASP was 80-90 mmHg at that time (stable).
Acute hypoxic respiratory failure secondary to CHF exacerbation
Acute CHF preserved EF
Pulmonary hypertension
Reports improvement with diuresis. Weight 80-85 kg since admission. Currently on O2 at 2 L with no distress.
Repeated echo as above.
Reports compliance with outpatient cardiovascular regimen including daily diuretics
Transitioned to oral Lasix on 10/14
Added Aldactone
Home O2 assessment: As of 10/14: Patient is in need of oxygen at 2 liters/minute via nasal cannula continuously due to pulse oximetry of 88% on room air at rest. Oxygen will help to improve hypoxemia. Patient is mobile within the home. DuoNeb therapy
has been tried and is ineffective in treating hypoxemia related symptoms. Oxygen is needed to improve symptoms.
With severe pulmonary hypertension, may need additional evaluation with [facility]
Continue Cardura, losartan, diltiazem
SOCO
CKD stage IIIa with baseline creatinine 1.2.
Suspect cardiorenal state. With possibly component of retention
Creatinine bumped and plateaued at 1.7
Easton catheter removed for trial of voiding on 10/15
Hold losartan
Continue Lasix/Aldactone
Acute urine retention
Likely contributing to SOCO.
Creatinine plateau 1.4.
PVR 600-700 cc.
Easton catheter placed on 10/12
Easton cath removed on 10/15 for trial of void
UTI. Complicated with retention
Urine culture with sensitive E. coli
Symptomatic on admission
Completed ceftriaxone 5-day course on 10/15
PAD with history of right lower extremity wound and balloon angioplasty on right posterior tibial artery
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
TREVA/PVR reviewed
Vascular surgery input appreciated with plan for outpatient follow-up
Continue wound care
On chronic antibiotic suppression for wounds as outpatient.
CAD denies any chest pain
ECG with A-fib with no ischemia.
Echo with no regional wall motion abnormalities
Permanent atrial fibrillation.
Rate control with diltiazem.
Anticoagulations Coumadin with goal for INR 2-3. Monitor daily while on antibiotics.
Prediabetes
Hemoglobin A1c 5.8
Continue to monitor sugars daily
Anticipated Discharge: 24 - 48 hours
Subjective/Interval History
-
Date of Service: October 15, 2024
Objective Data
-
Labs:
Laboratory Results
10/15/24
05:37
WBC 9.1
Hgb 12.0 L
Hct 35.5 L
Plt Count 235
PT 25.1 H
INR 2.23
Sodium 140
Potassium 3.6
Chloride 101
Carbon Dioxide 30
BUN 61 H
Creatinine 1.7 H
Glucose 106 H
Calcium 8.7
Vital Signs:
Vital Signs
Temp Pulse Resp BP Pulse Ox
97.7 F 81 20 111/69 97
10/15/24 14:15 10/15/24 14:15 10/15/24 14:15 10/15/24 14:15 10/15/24 14:15
I&O
10/14/24 10/15/24 10/16/24
06:59 06:59 06:59
Intake Total 2280 / 2280 3000 / 3000 240 / 240
Output Total 1925 / 1925 2150 / 2150 825 / 825
Balance 355 / 355 850 / 850 -585 / -585
Physical Exam
-
General: Well Developed and No Apparent Distress
HEENT: Normocephalic, Atraumatic and Moist Mucous Membranes
Respiratory: Clear to Auscultation
Cardiac: Regular Rhythm and S1/S2; Negative Murmur, Rub or Gallop
GI: Soft, Nontender, Nondistended and Normal Bowel Sounds; Negative Organomegaly
Rectal: Deferred by Provider
Musculoskeletal: No Clubbing, No Cyanosis and No Edema
Skin: Negative Rash
Neuro: Nonfocal/Grossly Intact
--- NOTE | 2024-10-15 15:10 | VNURNOTE ---
Home health liaison met with patient to discuss [facility] services, visit scheduling/frequency, homebound status and pet policy. Patient has had [facility] services in the past and is familiar. He is agreeable understands home visits will be 1-2 times a week
to assess and teach medical management. Patient aware a visiting nurse will contact him for start of care within 1-2 days after discharge from . Paperwork for oxygen /POC were faxed to [facility] 10/15/24. [facility] Referral completed in care
port
[2024-10-15 15:48] VITALS: BP 112/60
[2024-10-15 16:34] LABS: Glucose - Point of Care 117 mg/dl (70-99)
[2024-10-15] MEDS: LIPITOR 40 MG PO (17:16)
[2024-10-15] MEDS: CARDURA 2 MG PO (17:16)
[2024-10-15] MEDS: STERILE WATER FOR INJECTION IV (17:17)
[2024-10-15] MEDS: FEOSOL 325 MG PO (17:17)
--- NOTE | 2024-10-15 17:17 | CM ---
Pt requires 1 liter Oxygen Pox 96%.
home oxygen test qualifies pt for home oxygen.
Pt requested [facility] started home oxygen set up with [facility]. [phone] Pt wants POC.
Easton removed was able to void.
IMM reviewed signed on chart.
Son Amandeep will drive him home at [place].
PLAN Home with [facility] Oxygen needed form [facility]
[2024-10-15] MEDS: COUMADIN 6 MG PO (18:26)
[2024-10-15 19:41] VITALS: BP 112/58
[2024-10-15 21:06] LABS: Glucose - Point of Care 127 mg/dl (70-99)
[2024-10-15] MEDS: CARDIZEM CD 120 MG PO (21:14)
[2024-10-15 23:36] VITALS: BP 119/58
[2024-10-16] VITALS (7 sets, daily range): BP systolic 90–134; BP diastolic 48–62; PULSE 79–85; BMI 24.6
[2024-10-16 06:22] LABS: Hematocrit 37.1 % (39.0-52.0); Hemoglobin 12.3 g/dL (13.0-18.0); Mean Corp Hgb Conc. 33.2 g/dL (33.0-37.0); Mean Corpuscular Hgb 29.3 pg (27.0-31.0); Mean Corpuscular Volume 88.3 fL (80.0-94.0); Mean Platelet Volume 10.4 fL (7.4-10.4); Platelet Count 248 10^3/uL (130-400); Red Cell Dist. Width 15.1 % (11.5-14.5); White Blood Cell Count 10.9 10^3/uL (4.8-10.8)
[2024-10-16 06:28] LABS: INR 2.13; PT 23.9 Sec (11.4-14.6)
[2024-10-16 06:44] LABS: Blood Urea Nitrogen 70 mg/dl (9-20); Calcium 9.1 mg/dl (8.4-10.2); Carbon Dioxide 32 mmol/L (22-30); Chloride 99 mmol/L (98-107); Estimated Creatinine Clearance 31 ml/min; Glucose 113 mg/dl (70-99); Magnesium 2.3 mg/dl (1.6-2.3); Potassium 4.4 mmol/L (3.5-5.1); Sodium 143 mmol/L (135-145); eGFR 33.72
[2024-10-16 07:11] LABS: Glucose - Point of Care 109 mg/dl (70-99)
--- NOTE | 2024-10-16 09:03 | W.PN.HOSP.TC ---
Today's Communication/Plan
-
Insert [place]
Arrange for home O2
Arrange for home care
Discharge
Assessment / Plan
Assessment / Plan
Gen-AAOx3, NAD
HEENT-NC, AT, anicteric, clear oral mm
Neck-supple
CV-reg, no M, +S1/S2
Lungs-clear B/L
Abd-soft, NT, ND
Ext-no edema
Musculoskeletal-no cyanosis, clubbing
Skin-warm and dry
Neuro-grossly non-focal
Psych-calm, cooperative
Impression:
Acute hypoxic respiratory failure secondary to CHF exacerbation.
Acute CHF preserved EF exacerbation.
Severe pulmonary hypertension.
SOCO possibly secondary to cardiorenal
UTI
Acute urinary retention
Other conditions
Aortic stenosis status post TAVR.
Permanent atrial fibrillation
Anticoagulation with Coumadin
Systemic hypertension
Diabetes mellitus type 2.
CKD stage IIIa with baseline creatinine 1.2
CAD
PAD.
Dyslipidemia
GERD.
Gout.
Asthma
Plan:
Echo 10/11
Normal left ventricular systolic function. Left ventricular ejection fraction
is 55-60%.
Mild/moderate mitral regurgitation.
Normally functioning 23mm Chambers S3 TAVR. Peak gradient 23mmHg/Mean gradient
13mmHg.
Mildly dilated right ventricle. Mildly reduced right ventricular systolic
function.
Moderate tricuspid regurgitation. Severely elevated PASP. Estimated pulmonary
artery pressure of 85-90 mmHg assuming a right atrial pressure of 15 mmHg.
Compared to 05/27/24: MR has improved from moderate to mild/moderate. Moderate
TR is stable. PASP was 80-90 mmHg at that time (stable).
Acute hypoxic respiratory failure secondary to CHF exacerbation
Acute CHF preserved EF
Pulmonary hypertension
Reports improvement with diuresis. Weight 80-85 kg since admission. Currently on O2 at 2 L with no distress.
Repeated echo as above.
Reports compliance with outpatient cardiovascular regimen including daily diuretics
Transitioned to oral Lasix on 10/14
Added Aldactone
Home O2 assessment: As of 10/14: Patient is in need of oxygen at 2 liters/minute via nasal cannula continuously due to pulse oximetry of 88% on room air at rest. Oxygen will help to improve hypoxemia. Patient is mobile within the home. DuoNeb therapy
has been tried and is ineffective in treating hypoxemia related symptoms. Oxygen is needed to improve symptoms.
With severe pulmonary hypertension, may need additional evaluation with [facility]
Continue Cardura, losartan, diltiazem
SOCO
CKD stage IIIa with baseline creatinine 1.2.
Suspect cardiorenal state. With possibly component of retention
Creatinine up to 1.9 today.
[place] catheter removed for trial of voiding on 10/15
Hold losartan
Continue Lasix/Aldactone
Acute urine retention
Likely contributing to SOCO.
Creatinine plateau 1.4.
PVR 600-700 cc.
Easton catheter placed on 10/12
Easton cath removed on 10/15 for trial of void
Bladder scan this morning 376, reinsert [place]on catheter given rising creatinine. Discharged with Easton catheter and follow-up with urology. Discussed with patient and family. Updated urology via text, Dr. Prajapati.
UTI. Complicated with retention
Urine culture with sensitive E. coli
Symptomatic on admission
Completed ceftriaxone 5-day course on 10/15
PAD with history of right lower extremity wound and balloon angioplasty on right posterior tibial artery
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
TREVA/PVR reviewed
Vascular surgery input appreciated with plan for outpatient follow-up
Continue wound care
On chronic antibiotic suppression for wounds as outpatient.
CAD denies any chest pain
ECG with A-fib with no ischemia.
Echo with no regional wall motion abnormalities
Permanent atrial fibrillation.
Rate control with diltiazem.
Anticoagulations Coumadin with goal for INR 2-3. Monitor daily while on antibiotics.
Prediabetes
Hemoglobin A1c 5.8
Continue to monitor sugars daily
Dispo -will set up for home care and discharge this afternoon with home oxygen and [place] catheter. Spoke with son Vasquez on the phone, and updated case management and nursing.
Resume chronic antibiotic suppression with penicillin.
Check BMP next week with primary care doctor.
Patient is in need of oxygen on exertion due to pulse oximetry of 94% on room air at rest; 85% on room air with exertion.
Patient was placed on 2L O2 via nasal cannula with saturation of 95%. Oxygen will help to improve hypoxemia.
Patient is mobile within the home. Albuterol therapy has been discussed and is ineffective in treating hypoxemia-related symptoms.
Oxygen will improve the patient's symptoms.
35-minute spent in discharge process.
Anticipated Discharge: Today
Subjective/Interval History
-
Date of Service: October 16, 2024
Patient seen and examined. No complaints.
Objective Data
-
Labs:
Laboratory Results
10/16/24
05:07
WBC 10.9 H
Hgb 12.3 L
Hct 37.1 L
Plt Count 248
PT 23.9 H
INR 2.13
Sodium 143
Potassium 4.4
Chloride 99
Carbon Dioxide 32 H
BUN 70 H
Creatinine 1.9 H
Glucose 113 H
Calcium 9.1
Vital Signs:
Vital Signs
Temp Pulse Resp BP Pulse Ox
97.6 F 81 14 97/49 93
10/16/24 07:50 10/16/24 07:50 10/16/24 07:50 10/16/24 07:50 10/16/24 07:50
I&O
10/15/24 10/16/24 10/17/24
06:59 06:59 06:59
Intake Total 3000 / 3000 960 / 960
Output Total 2150 / 2150 1480 / 1480
Balance 850 / 850 -520 / -520
Review of Systems
-
History Source: Patient
All other systems: Reviewed and negative
--- NOTE | 2024-10-16 09:08 | W.DS.TRANS ---
DC Summary - Special Procedures Nurse
-
Discharge Instructions:
Sleep Apnea Risk Intermediate
Instructions: *[facility] Heart Failure Instructions
Stand-Alone Forms:
Changes to Home Medications: No
Discharge Medications:
DC Medications w/original date entered in [employer]
multivitamin with folic acid 400 mcg tablet (Tab-A-Janay) 1 tab PO DAILY Supplement 10/16/18
atorvastatin 40 mg tablet 40 mg PO QPM #90 tabs 01/20/19
pantoprazole 40 mg tablet,delayed release 40 mg PO DAILY ##90 01/20/19
aspirin 81 mg tablet,delayed release 81 mg PO DAILY Blood clot prevention/tx 08/08/19
furosemide 80 mg tablet 80 mg PO DAILY Fluid retention/Swelling 08/09/19
ferrous sulfate 325 mg (65 mg iron) tablet (FeroSul) 325 mg PO QPM Supplement 05/23/21
potassium chloride 20 mEq tablet,extended release(part/cryst) (Klor-Con M) 40 meq PO BID Electrolyte Repletion 05/23/21
colchicine 0.6 mg tablet 0.6 mg PO DAILY Gout 03/01/22
penicillin V potassium 500 mg tablet 500 mg PO BID Infection 03/01/22
warfarin 3 mg tablet 3 mg PO @1800 Blood Clot Prevention/Tx 03/01/22
warfarin 6 mg tablet 6 mg PO SuMoFrSa@1800 03/01/22
losartan 100 mg tablet 100 mg PO DAILY Blood Pressure 04/01/22
acetaminophen 325 mg tablet (Tylenol) 650 mg PO DAILYPRN PRN mild pain 10/10/24
diltiazem HCl 120 mg capsule,24 hr,extended release 120 mg PO HS Heart Disease/Condition 10/10/24
doxazosin 2 mg tablet 2 mg PO QPM 10/10/24
furosemide 80 mg tablet (Lasix) 80 mg PO QPM 10/10/24
metformin 500 mg tablet 500 mg PO QPM Diabetes 10/10/24
Home Medication Changes
Pending Results: No
[2024-10-16] MEDS: COLCHICINE 0.6 MG PO (09:40)
[2024-10-16] MEDS: ALDACTONE 25 MG PO (09:41)
[2024-10-16] MEDS: BACTROBAN 2% OINTMENT 1 APPLIC TOPICAL (09:45)
[2024-10-16] MEDS: ASPIR LOW (ENTERIC COATED) 81 MG PO (09:45)
[2024-10-16] MEDS: LASIX 80 MG PO (09:46)
[2024-10-16] MEDS: PROTONIX 40 MG PO (09:46)
[2024-10-16] MEDS: KCL 40 MEQ PO (09:46)
[2024-10-16] MEDS: FLUSH (NSS) 1 FLUSH IV (09:46)
[2024-10-16] MEDS: THERAGRAN 1 TABLET PO (09:46)
[2024-10-16] MEDS: PEN VK 500 MG PO (10:38)
--- NOTE | 2024-10-16 10:59 | CM ---
Addendum entered by JEEVAN Poon 10/16/24 13:15:
RN updated.
Addendum entered by JEEVAN Poon 10/16/24 12:43:
Met with patient to update about o2. Reviewed IMM. He signed and it is now on chart.
Original Note:
Received a call from [place] who stated that he is on his way to drop a tank off to patient and then drop off o2 to patient's address. VN ordered.
Plan: Case management will continue to follow and assist with discharge planning. Home with o2.
[2024-10-16 11:54] LABS: Glucose - Point of Care 102 mg/dl (70-99)
--- NOTE | 2024-10-16 16:49 | PTCARENOTE ---
Pt's noon BP 90/54, asymptomatic. Rechecked, 98/52. Made Dr. Roy aware as pt is to be discharged. Dr. Roy requested orthostatic vital signs. Noted as the following: Supine Bp 134/62, HR 79, Sitting 124/58, HR 85, Standing 94/48, HR 84. Pt
asymptomatic. Made Dr. Roy aware. Dr. Roy ok with pt being discharged.
--- NOTE | 2024-10-16 16:52 | PTCARENOTE ---
Prior to pt's discharge, provided teach back and demonstration of how to switch over large urinary drainage bag to leg bag and cleaning of bag, urinary hygiene. Also, provided pt with written education for when he goes home on care of catheter.
--- NOTE | 2024-10-18 11:32 | W.HF.CON ---
Heart Failure
- LV Function
Left ventricular function study result: LV Ejection fraction >/= 50%
Ejection Fraction Percentage: 55-60
- ARNI
Patient already on ARNI: No
Heart Failure ARNI Not Indicated: LV Ejection Fraction >/= 40%
- ACEI/ARB
Patient already on ACEI/ARB: No
Heart Failure ACEI/ARB Not Indicated: LV Ejection Fraction > 40%
- Beta Rocael
Patient already on Evidence Based Beta Rocael: No
Heart Failure Evidence Based Beta Rocael Not Indicated: LV Ejection Fraction > 40%
- Mineralocorticord Receptor Antagonist
Patient already on MRA: Yes
- SGLT-2 Inhibitor
Patient already on SGLT-2 Inhibitor: No
Heart Failure SGLT-2 Inhibitor Contraindication: Patient Refusal
- Afib Anticoagulation
Patient already on Anticoagulation for Afib: Yes
- NYHA CHF Classification
NYHA CHF Classification Level: Class III - Symptoms w/ min exertion, interferes w/ nml daily activity
- ACC/AHA Stage
ACC/AHA Stage: Stage C: Symptomatic Heart Failure
== END 2024-10-16 16:49 | disposition home health service (06) | DRG 291 ==
LOC: 4 EAST ACU 13:43
PROVIDERS: Emergency Medicine; Student in an Organized Health Care Education/Training Program; ADMITTING PHYSICIAN Internal Medicine; ATTENDING PHYSICIAN Hospitalist; CONSULT PHYSICIAN Internal Medicine; EMERGENCY PHYSICIAN Emergency Medicine
DX: I13.0 Hypertensive heart and chronic kidney disease with heart failure and stage 1 through stage 4 chronic kidney disease, or unspecified chronic kidney disease (principal); I50.33 Acute on chronic diastolic (congestive) heart failure; J96.01 Acute respiratory failure with hypoxia; I48.21 Permanent atrial fibrillation; N17.9 Acute kidney failure, unspecified; N39.0 Urinary tract infection, site not specified; L97.322 Non-pressure chronic ulcer of left ankle with fat layer exposed; Z66 Do not resuscitate; I25.10 Atherosclerotic heart disease of native coronary artery without angina pectoris; I27.20 Pulmonary hypertension, unspecified; J45.909 Unspecified asthma, uncomplicated; K21.9 Gastro-esophageal reflux disease without esophagitis; E87.6 Hypokalemia; E78.00 Pure hypercholesterolemia, unspecified; E11.22 Type 2 diabetes mellitus with diabetic chronic kidney disease; E11.51 Type 2 diabetes mellitus with diabetic peripheral angiopathy without gangrene; N18.31 Chronic kidney disease, stage 3a; R33.8 Other retention of urine; I70.243 Atherosclerosis of native arteries of left leg with ulceration of ankle; M10.9 Gout, unspecified; I27.81 Cor pulmonale (chronic); B96.20 Unspecified Escherichia coli [E. coli] as the cause of diseases classified elsewhere; I25.2 Old myocardial infarction; Z79.01 Long term (current) use of anticoagulants; Z95.5 Presence of coronary angioplasty implant and graft; Z95.2 Presence of prosthetic heart valve; Z89.421 Acquired absence of other right toe(s); Z88.1 Allergy status to other antibiotic agents; Z87.891 Personal history of nicotine dependence; Z85.828 Personal history of other malignant neoplasm of skin; Z79.899 Other long term (current) drug therapy; Z79.84 Long term (current) use of oral hypoglycemic drugs; Z79.82 Long term (current) use of aspirin; Z11.52 Encounter for screening for COVID-19
CPT/HCPCS: 71046; 80048; 80053; 81003; 81015; 82248; 82962; 83036; 83735; 83880; 85025; 85027; 85610; 87077; 87086; 87186; 87502; 87811; 93005; 93306; 93922; 93925; 96374; 97116; 97163; 97167; 97530; 99285

== ENCOUNTER → 2024-10-21 14:39 | Outpatient (REF) | payer MEDICARE, SELFPAY ==
[2024-10-21 16:00] LABS: Blood Urea Nitrogen 44 mg/dl (9-20); Calcium 8.9 mg/dl (8.4-10.2); Carbon Dioxide 26 mmol/L (22-30); Chloride 108 mmol/L (98-107); Glucose 114 mg/dl (70-99); Potassium 4.7 mmol/L (3.5-5.1); Sodium 144 mmol/L (135-145); eGFR 44.78
== END ==
LOC: OLAB 14:39
PROVIDERS: ATTENDING PHYSICIAN Family Medicine; FAMILY PHYSICIAN Internal Medicine Cardiovascular Disease
DX: E87.6 Hypokalemia (principal)
CPT/HCPCS: 36415; 80048

== ENCOUNTER → 2024-10-22 12:21 | Outpatient (REF) | payer MEDICARE, SELFPAY ==
[2024-10-22 13:46] LABS: Blood Urea Nitrogen 43 mg/dl (9-20); Calcium 9.8 mg/dl (8.4-10.2); Carbon Dioxide 30 mmol/L (22-30); Chloride 103 mmol/L (98-107); Glucose 84 mg/dl (70-99); Potassium 4.9 mmol/L (3.5-5.1); Sodium 146 mmol/L (135-145); eGFR 48.65
== END ==
LOC: REG 12:21
PROVIDERS: ATTENDING PHYSICIAN Internal Medicine Cardiovascular Disease; FAMILY PHYSICIAN Family Medicine
DX: I50.32 Chronic diastolic (congestive) heart failure (principal)
CPT/HCPCS: 36415; 80048

== ENCOUNTER → 2024-10-27 15:47 | Outpatient (REF) | payer MEDICARE, SELFPAY ==
[2024-10-27 16:32] LABS: Albumin 3.7 g/dl (3.5-5.0); Blood Urea Nitrogen 43 mg/dl (9-20); Carbon Dioxide 24 mmol/L (22-30); Glucose 101 mg/dl (70-99); Phosphorus 4.3 mg/dl (2.5-4.5); eGFR 48.65
[2024-10-27 16:51] LABS: Chloride 107 mmol/L (98-107); Potassium 4.7 mmol/L (3.5-5.1); Sodium 142 mmol/L (135-145)
== END ==
LOC: REG 15:47
PROVIDERS: ATTENDING PHYSICIAN Internal Medicine Cardiovascular Disease; FAMILY PHYSICIAN Family Medicine
DX: I50.32 Chronic diastolic (congestive) heart failure (principal)
CPT/HCPCS: 36415; 80069

== ENCOUNTER → 2024-11-04 12:54 | Outpatient (REF) | payer MEDICARE, SELFPAY ==
[2024-11-04 14:15] LABS: Blood Urea Nitrogen 32 mg/dl (9-20); Calcium 9.5 mg/dl (8.4-10.2); Carbon Dioxide 29 mmol/L (22-30); Chloride 104 mmol/L (98-107); Glucose 85 mg/dl (70-99); Phosphorus 4.8 mg/dl (2.5-4.5); Potassium 5.4 mmol/L (3.5-5.1); Sodium 143 mmol/L (135-145); eGFR 41.44
== END ==
LOC: REG 12:54
PROVIDERS: ATTENDING PHYSICIAN Internal Medicine Cardiovascular Disease; FAMILY PHYSICIAN Family Medicine
DX: I50.32 Chronic diastolic (congestive) heart failure (principal)
CPT/HCPCS: 36415; 80069

== ENCOUNTER → 2024-11-10 14:34 | Outpatient (REF) | payer MEDICARE, SELFPAY ==
[2024-11-10 15:57] LABS: Albumin 3.7 g/dl (3.5-5.0); Blood Urea Nitrogen 28 mg/dl (9-20); Calcium 9.1 mg/dl (8.4-10.2); Carbon Dioxide 24 mmol/L (22-30); Chloride 107 mmol/L (98-107); Glucose 114 mg/dl (70-99); Phosphorus 4.3 mg/dl (2.5-4.5); Sodium 143 mmol/L (135-145)
== END ==
LOC: REG 14:34
PROVIDERS: ATTENDING PHYSICIAN Internal Medicine Cardiovascular Disease; FAMILY PHYSICIAN Family Medicine
DX: I50.32 Chronic diastolic (congestive) heart failure (principal)
CPT/HCPCS: 36415; 80069

== ENCOUNTER 2024-11-28 19:12 | Inpatient (IN) | payer MEDICARE, SELFPAY ==
[2024-11-28 10:23] VITALS: BP 131/45
--- NOTE | 2024-11-28 13:17 | ED.GENMED ---
History of Present Illness
<Sharmaine Candelario PA-C - Last Filed: 11/28/24 22:05>
General
Chief Complaint: Musculo-Skeletal Complaint
Source: patient
Exam Limitations: none
Time Seen by Provider: 11/28/24 13:00
Nursing documentation reviewed up to this point in time: agreed with
History of Present Illness
History of Present Illness:
Patient is an 89-year-old male with history atrial fibrillation on Coumadin, CHF, CAD, hypertension, diabetes, CKD who presents to the emergency department with evaluation of pain and swelling of left elbow. Patient reports that he banged his elbow
while getting into his wheelchair 6 days ago and has had significant pain and swelling since. Pain is not relieved with Tylenol. He noticed a significant amount of redness, and swelling around his left elbow and now his left hand is also swollen.
He became more concerned when he felt his elbow and hand seemed 'warm 'prompting visit to the emergency department.
Patient denies any fevers or chills. He denies any numbness/tingling in right upper extremity.
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 He states that he takes prophylactic penicillin daily for this which is apparently prescribed by his primary care provider.
Past History
<Sharmaine Candelario PA-C - Last Filed: 11/28/24 22:05>
Past History
ED Past Medical History: Arrthythmia (Atrial fibrillation), Asthma, CAD, Cancer (Skin), CHF, GERD, HTN, NIDDM and Other (Carotid stent, pericarditis, neuropathy, back pain)
ED Past Surgical History: Cardiac (Carotid stent)
Social History
Tobacco: Former smoker
Alcohol: Daily ([place], [place] 1-2 glasses)
Drug: None
Personal:
Living: with family
Employment: Retired
Family History
Family History: Other (Noncontributory)
Review of Systems
<Sharmaine Candelario PA-C - Last Filed: 11/28/24 22:05>
Review of Systems
Allergies reviewed?: Yes
All Other Systems: ROS reviewed and negative except as documented in HPI and ROS
Phy Exam
<Sharmaine Candelario PA-C - Last Filed: 11/28/24 22:05>
Physical Exam
Physical Exam:
Vitals: Patient's vital signs are stable. Afebrile
General: Patient is moderately comfortable due to pain.
Skin: Edema of left elbow with overlying erythema and warmth. Edema of left hand. Scattered ecchymoses of left upper extremity.
Head: Normocephalic, atraumatic
Eyes: Sclera nonicteric. EOMs intact. No nystagmus.
Throat: Protecting airway
Neck: Normal ROM
Cardiac: Regular rate, irregularly irregular rhythm.
Pulm: Normal respiratory effort, no wheezes, rales, rhonchi heard on exam
.
Abdomen: Abdomen soft and nontender.
Extremities: Focal swelling to left elbow with overlying erythema and warmth. No obvious area of fluctuance overlying olecranon bursa sac. Left hand with edema and diffuse tenderness. Somewhat diffuse tenderness of left upper extremity from hand
through elbow. Limited range of motion in left elbow due to pain. He appears to have intact range of motion in right wrist and right digits. Decreased capillary refill in digits of left hand. Sensation intact. Palpable left brachial and left
radial pulse.
Neuro: AAOx3. Grossly intact.
Psychiatric: Normal affect.
Course
<Sharmaine Candelario PA-C - Last Filed: 11/28/24 22:05>
Orders/Labs/Results
Orders:
Orders
11/28/24 13:15
Oxycodone/Acetaminophen [Percocet 5/325] 1 tablet PO NOW STA
Elbow, 3 view, Left [CR Elbow - Left Min 3 Views ] Urgent
Comment:
Reason For Exam: L elbow pain/swelling
Hand, Left 3 View [CR Hand - Left Min 3 Views] Urgent
Comment:
Reason For Exam: L hand pain/swelling
11/28/24 13:29
C-Reactive Protein Urgent
Comment: ADD ON
Complete Blood Count/With Diff Urgent
Comprehensive Metabolic Panel Urgent
Erythrocyte Sed Rate Urgent
Comment: ADD ON
Prothrombin Time Urgent
Uric Acid Urgent
11/28/24 Dinner
1800 calorie (15 carb) Diabetic
At Your Request: Full Participation
11/28/24 16:48
Add On- LAB Urgent
Tests Added?: ESR, CRP , uric acid
11/28/24 16:58
HYDROmorphone [Dilaudid] 0.25 mg IV NOW STA
11/28/24 17:00
Sling Left-Treatment ONCE
11/28/24 17:58
Vancomycin [Vancocin] 2,000 mg 0.9% Sodium Chloride 500 ml [Nss] 500 ml IV NOW
11/28/24 18:24
Admit/Transfer Patient As Directed
Co-Sign Provider:
Level of Care: Inpatient admission
Assign to:: Medical/Surgical
Physician / Group: hospitalist
Diagnosis: traumatic left elbow swelling
Reason for Hospitalization: IV abx
orthopedic eval
Expected length of stay greater than two midnights?: Yes
ELOS- Estimated Length of Stay in days: 4
I certify the patient meets the requirements for IP care: Yes
11/28/24 18:25
PRN Pain Medication Management As Directed
May give lesser potent ordered pain med per pt: Yes
preference::
Protocol:: Medication orders for pain may be administered in a
manner that supports deferring to patient preference
when the pt is:
- Requesting an ordered lesser potent pain medication.
Least to most potent pain medications are defined
as: acetaminophen < NSAID < tramadol < opioids
(morphine, oxycodone, hydromorphone).
- Requesting a lesser dose of the same medication IF
ORDERED.
- Requesting a less intrusive route of administration
if both routes are prescribed by the provider (PO <
IV).
11/28/24 18:31
Code Status As Directed
Resuscitation Status: Do not resuscitate
Reached after discussion with pt or family/Healthcare POA: Yes
11/28/24 18:32
DNR Bracelet Application ONCE
11/28/24 18:40
Upper Ext Left wo Contrast CT [CT Upper Ext W/o Iv Cont Lt] Urgent
Comment: please do without contrast
Reason For Exam: trauma to left elbow
11/28/24 19:37
Acetaminophen [Tylenol] 650 mg PO DAILYPRN PRN
Dextrose 50%-Water [Dextrose 50% Syringe] 12.5 grams IV [id number] PRN
Glucagon [GlucaGen] 1 mg IM PRN PRN
HYDROmorphone [Dilaudid] 0.25 mg IV Q4HPRN PRN
Oxycodone [Roxicodone] 5 mg PO Q4HPRN PRN
VANCOMYCIN Pharmacy to Dose [VANCOCIN Pharmacy to Dose] 1 each Pharmacy To Prepare [Call Pharmacy To Prepare] 0 ml IV PER PROTOCOL
11/28/24 19:37
ORTHOPEDIC CONSULT Routine
Consulting Provider: Theron Alvarez
Was physician already notified: Yes
WOUND/OSTOMY CONSULT Routine
Reason for Consult: chronic wounds
Activity As Directed
Activity Level: Out of Bed-Early Mobility
Bedside Glucose Monitoring As Directed
Frequency: AC&HS
Additional Instructions:: Change to q6h if pt on TPN, tube feeding or not eating
Cold Application As Directed
Location: left elbow area
Frequency: PRN
Duration of Application: No longer than 20 minutes
Method of Delivery: Cold compress
Intake/ Output As Directed
Frequency: Per unit guidelines
Vital Signs As Directed
Frequency: Per unit guidelines
Pt Eval And Treat Routine
Activity Level: Out of Bed-Early Mobility
11/28/24 20:00
Penicillin V Potassium [Pen Vk] 500 mg PO BID
Potassium Chloride [KCl] 20 meq PO BID
11/28/24 22:00
Diltiazem Extended Release [Cardizem Cd] 120 mg PO HS
11/29/24 06:00
Complete Blood Count/No Diff IN AM
Comprehensive Metabolic Panel IN AM
Glycohemoglobin (HgbA1c) IN AM
Prothrombin Time IN AM
11/29/24 07:30
Insulin Aspart Corrective Low [Novolog Flexpen-Low Resistance] See Protocol SC AC
11/29/24 08:00
Aspirin Low Dose EC [Aspir Low (Enteric Coated)] 81 mg PO DAILY
Furosemide [Lasix] 80 mg PO BID@0800,1600
Multivitamin [Theragran] 1 tablet PO DAILY
Pantoprazole [Protonix] 40 mg PO DAILY
Polyethylene Glycol Powder [Miralax] 17 grams PO DAILY
Spironolactone [Aldactone] 25 mg PO DAILY
11/29/24 18:00
Atorvastatin [Lipitor] 40 mg PO QPM
Doxazosin Mesylate [Cardura] 2 mg PO QPM
Ferrous Sulfate [Feosol] 325 mg PO QPM
Warfarin [Coumadin] 6 mg PO Fr@1800
11/30/24 06:00
Prothrombin Time IN AM
11/30/24 18:00
Warfarin [Coumadin] 3 mg PO TUWETH@1800
12/01/24 06:00
Prothrombin Time IN AM
12/02/24 06:00
Prothrombin Time IN AM
12/03/24 06:00
Prothrombin Time IN AM
Abnormal Lab Results
11/28/24
13:29
WBC 15.3 H 10^3/uL
(4.8-10.8)
RBC 4.07 L 10^6/uL
(4.70-6.10)
Hgb 12.0 L g/dL
(13.0-18.0)
Hct 36.1 L %
(39.0-52.0)
RDW 17.9 H %
(11.5-14.5)
MPV 10.6 H fL
(7.4-10.4)
Abs Immat Gran (auto) 0.1 H 10^3/uL
(0-0.05)
Absolute Neuts (auto) 13.1 H 10^3/uL
(1.4-6.5)
Absolute Lymphs (auto) 0.9 L 10^3/uL
(1.2-3.4)
Absolute Monos (auto) 1.1 H 10^3/uL
(0.1-0.6)
Neutrophils % 85.4 H %
(42.2-75.2)
Lymphocytes % 5.8 L %
(20.5-51.1)
ESR 56 H mm/hour
(0-20)
PT 22.7 H Sec
(11.4-14.6)
BUN 42 H mg/dl
(9-20)
Creatinine 1.7 H mg/dL
(0.7-1.3)
Glucose 103 H mg/dl
(70-99)
Uric Acid 9.6 H mg/dl
(3.5-8.5)
Alkaline Phosphatase 194 H U/L
(38-126)
C-Reactive Protein 193.50 H mg/L
(0.0-10.00)
11/28/24 13:29
11/28/24 13:29
Vital Signs
Initial and Last Documented VS:
Initial Vital Signs
Temp Pulse Resp BP Pulse Ox
97.6 F 74 16 131/45 94
11/28/24 10:23 11/28/24 10:23 11/28/24 10:23 11/28/24 10:23 11/28/24 10:23
Last Documented Vital Signs
Temp Pulse Resp BP Pulse Ox
97.7 F 79 18 131/63 100
11/28/24 19:45 11/28/24 19:45 11/28/24 19:45 11/28/24 19:45 11/28/24 19:45
<Jyoti Elizabeth, DO - Last Filed: 11/28/24 17:03>
Orders/Labs/Results
Orders:
Orders
11/28/24 13:15
Oxycodone/Acetaminophen [Percocet 5/325] 1 tablet PO NOW STA
Elbow, 3 view, Left [CR Elbow - Left Min 3 Views ] Urgent
Comment:
Reason For Exam: L elbow pain/swelling
Hand, Left 3 View [CR Hand - Left Min 3 Views] Urgent
Comment:
Reason For Exam: L hand pain/swelling
11/28/24 13:29
C-Reactive Protein Urgent
Comment: ADD ON
Complete Blood Count/With Diff Urgent
Comprehensive Metabolic Panel Urgent
Erythrocyte Sed Rate Urgent
Comment: ADD ON
Prothrombin Time Urgent
Uric Acid Urgent
11/28/24 Dinner
1800 calorie (15 carb) Diabetic
At Your Request: Full Participation
11/28/24 16:48
Add On- LAB Urgent
Tests Added?: ESR, CRP , uric acid
11/28/24 16:58
HYDROmorphone [Dilaudid] 0.25 mg IV NOW STA
11/28/24 17:00
Sling Left-Treatment ONCE
11/28/24 17:58
Vancomycin [Vancocin] 2,000 mg 0.9% Sodium Chloride 500 ml [Nss] 500 ml IV NOW
11/28/24 18:24
Admit/Transfer Patient As Directed
Co-Sign Provider:
Level of Care: Inpatient admission
Assign to:: Medical/Surgical
Physician / Group: hospitalist
Diagnosis: traumatic left elbow swelling
Reason for Hospitalization: IV abx
orthopedic eval
Expected length of stay greater than two midnights?: Yes
ELOS- Estimated Length of Stay in days: 4
I certify the patient meets the requirements for IP care: Yes
11/28/24 18:25
PRN Pain Medication Management As Directed
May give lesser potent ordered pain med per pt: Yes
preference::
Protocol:: Medication orders for pain may be administered in a
manner that supports deferring to patient preference
when the pt is:
- Requesting an ordered lesser potent pain medication.
Least to most potent pain medications are defined
as: acetaminophen < NSAID < tramadol < opioids
(morphine, oxycodone, hydromorphone).
- Requesting a lesser dose of the same medication IF
ORDERED.
- Requesting a less intrusive route of administration
if both routes are prescribed by the provider (PO <
IV).
11/28/24 18:31
Code Status As Directed
Resuscitation Status: Do not resuscitate
Reached after discussion with pt or family/Healthcare POA: Yes
11/28/24 18:32
DNR Bracelet Application ONCE
11/28/24 18:40
Upper Ext Left wo Contrast CT [CT Upper Ext W/o Iv Cont Lt] Urgent
Comment: please do without contrast
Reason For Exam: trauma to left elbow
11/28/24 19:37
Acetaminophen [Tylenol] 650 mg PO DAILYPRN PRN
Dextrose 50%-Water [Dextrose 50% Syringe] 12.5 grams IV [id number] PRN
Glucagon [GlucaGen] 1 mg IM PRN PRN
HYDROmorphone [Dilaudid] 0.25 mg IV Q4HPRN PRN
Oxycodone [Roxicodone] 5 mg PO Q4HPRN PRN
VANCOMYCIN Pharmacy to Dose [VANCOCIN Pharmacy to Dose] 1 each Pharmacy To Prepare [Call Pharmacy To Prepare] 0 ml IV PER PROTOCOL
11/28/24 19:37
ORTHOPEDIC CONSULT Routine
Consulting Provider: Theron Alvarez
Was physician already notified: Yes
WOUND/OSTOMY CONSULT Routine
Reason for Consult: chronic wounds
Activity As Directed
Activity Level: Out of Bed-Early Mobility
Bedside Glucose Monitoring As Directed
Frequency: AC&HS
Additional Instructions:: Change to q6h if pt on TPN, tube feeding or not eating
Cold Application As Directed
Location: left elbow area
Frequency: PRN
Duration of Application: No longer than 20 minutes
Method of Delivery: Cold compress
Intake/ Output As Directed
Frequency: Per unit guidelines
Vital Signs As Directed
Frequency: Per unit guidelines
Pt Eval And Treat Routine
Activity Level: Out of Bed-Early Mobility
11/28/24 20:00
Penicillin V Potassium [Pen Vk] 500 mg PO BID
Potassium Chloride [KCl] 20 meq PO BID
11/28/24 22:00
Diltiazem Extended Release [Cardizem Cd] 120 mg PO HS
11/29/24 06:00
Complete Blood Count/No Diff IN AM
Comprehensive Metabolic Panel IN AM
Glycohemoglobin (HgbA1c) IN AM
Prothrombin Time IN AM
11/29/24 07:30
Insulin Aspart Corrective Low [Novolog Flexpen-Low Resistance] See Protocol SC AC
11/29/24 08:00
Aspirin Low Dose EC [Aspir Low (Enteric Coated)] 81 mg PO DAILY
Furosemide [Lasix] 80 mg PO BID@0800,1600
Multivitamin [Theragran] 1 tablet PO DAILY
Pantoprazole [Protonix] 40 mg PO DAILY
Polyethylene Glycol Powder [Miralax] 17 grams PO DAILY
Spironolactone [Aldactone] 25 mg PO DAILY
11/29/24 18:00
Atorvastatin [Lipitor] 40 mg PO QPM
Doxazosin Mesylate [Cardura] 2 mg PO QPM
Ferrous Sulfate [Feosol] 325 mg PO QPM
Warfarin [Coumadin] 6 mg PO SuMoFrSa@1800
11/30/24 06:00
Prothrombin Time IN AM
11/30/24 18:00
Warfarin [Coumadin] 3 mg PO TUWETH@1800
12/01/24 06:00
Prothrombin Time IN AM
12/02/24 06:00
Prothrombin Time IN AM
12/03/24 06:00
Prothrombin Time IN AM
Abnormal Lab Results
11/28/24
13:29
WBC 15.3 H 10^3/uL
(4.8-10.8)
RBC 4.07 L 10^6/uL
(4.70-6.10)
Hgb 12.0 L g/dL
(13.0-18.0)
Hct 36.1 L %
(39.0-52.0)
RDW 17.9 H %
(11.5-14.5)
MPV 10.6 H fL
(7.4-10.4)
Abs Immat Gran (auto) 0.1 H 10^3/uL
(0-0.05)
Absolute Neuts (auto) 13.1 H 10^3/uL
(1.4-6.5)
Absolute Lymphs (auto) 0.9 L 10^3/uL
(1.2-3.4)
Absolute Monos (auto) 1.1 H 10^3/uL
(0.1-0.6)
Neutrophils % 85.4 H %
(42.2-75.2)
Lymphocytes % 5.8 L %
(20.5-51.1)
ESR 56 H mm/hour
(0-20)
PT 22.7 H Sec
(11.4-14.6)
BUN 42 H mg/dl
(9-20)
Creatinine 1.7 H mg/dL
(0.7-1.3)
Glucose 103 H mg/dl
(70-99)
Uric Acid 9.6 H mg/dl
(3.5-8.5)
Alkaline Phosphatase 194 H U/L
(38-126)
C-Reactive Protein 193.50 H mg/L
(0.0-10.00)
11/28/24 13:29
11/28/24 13:29
Vital Signs
Initial and Last Documented VS:
Initial Vital Signs
Temp Pulse Resp BP Pulse Ox
97.6 F 74 16 131/45 94
11/28/24 10:23 11/28/24 10:23 11/28/24 10:23 11/28/24 10:23 11/28/24 10:23
Last Documented Vital Signs
Temp Pulse Resp BP Pulse Ox
97.7 F 79 18 131/63 100
11/28/24 19:45 11/28/24 19:45 11/28/24 19:45 11/28/24 19:45 11/28/24 19:45
<Sharmaine Candelario PA-C - Last Filed: 11/28/24 22:05>
MDM/Problems Addressed
Differential Diagnosis Includes:
Not limited to: Elbow fracture, elbow sprain, cellulitis, bursitis, septic arthritis, gouty arthritis, other inflammatory arthritis, PAD, etc.
MDM/Problems Addressed:
89-year-old male with gradually worsening pain and swelling of left elbow following minor trauma 6 days ago. No associated head strike or other injuries during trauma. Today�he had worse range of motion and developed warmth of the skin of his left
elbow concerning for infectious process. Patient arrives with stable vital signs. He is afebrile. Physical exam as above. There is somewhat diffuse swelling and tenderness of left upper extremity including left elbow and left hand although
notable erythema and warmth specifically of left elbow. He does have limited range of motion left elbow due to pain however he is able to extend and flex with discomfort. No obvious fluctuance over lying olecranon bursa. Left upper extremity with
somewhat decreased capillary refill although has palpable pulses and normal sensation. He does have a history of PAD.
Overall impression is suspicious for possible posttraumatic injury including fracture or sprain. However�given erythema, warmth, and limited range of motion�concern for possible infectious component such as cellulitis, septic arthritis, septic
bursitis. Other considerations include inflammatory arthritis such as gout.
Labs were sent significant for leukocytosis of 15.3 with left shift. Chemistry with renal insufficiency although appears at baseline. X-ray of left hand and left elbow show no evidence of acute fracture however there does appear to be an anterior
fat pad suggesting possible underlying occult fracture. Unable to rule out septic joint given elevated white blood cell count erythema and warmth of left elbow. Do feel this is somewhat less likely given recent history of trauma and patient's
ability to range elbow, as well as involvement in both elbow and wrist. Given obvious cellulitis of skin overlying olecranon and anticoag on Coumadin�very hesitant to perform joint aspiration.
At this point�Case was discussed with orthopedics on-call, Dr. Alvarez. Given concerns associate with joint aspiration low suspicion for septic arthritis�will plan to admit patient to hospital on IV antibiotics for suspected cellulitis. Will add on
inflammatory markers. Will place patient in shoulder sling with concerns of recent trauma. However�will hold splinting given significant edema and need for visualization of elbow to gauge treatment plan. Patient seen with attending physician.
Patient was accepted to the hospitalist service in stable condition.
Chronic conditions affecting care:
Atrial fibrillation on Coumadin, apparently history of septic arthritis
Acute Exacerbation and/or Progression of Chronic Illness:
N/A
<Sharmaine Candelario PA-C - Last Filed: 11/28/24 22:05>
*Radiology
Radiology exam reviewed: preliminary read by ED provider (X-ray of left elbow and left hand reviewed by me-no acute fracture) and radiology read reviewed
*Pulse Oximetry
Patient hypoxic: no
*EKG
Interpreted by ED Provider?: NA
*Kitchen Supervisor Interpretation
Rate: Kitchen Supervisor- N/A
*Critical Care Note
Total Time (30-74mins, 75-104mins- exclusive of procedures): Not Applicable
<Sharmaine Candelario PA-C - Last Filed: 11/28/24 22:05>
Patient Management
Discussion with other providers: Hospitalist and Professor Of English (Case discussed with orthopedics)
Escalation/DeEscalation of care consider admission/obs:
Admit to hospital with suspected cellulitis +/- elbow fracture and IV antibiotics
ED Attending Note
<Sharmaine Candelario PA-C - Last Filed: 11/28/24 22:05>
-
Portions of this chart may have been created with voice recognition software.� Occasional wrong word or��sound alike� substitutions may have occurred due to the inherent limitations of voice recognition software.
<Jyoti Elizabeth DO - Last Filed: 11/28/24 17:03>
ED Attending Note
Patient seen and examined by attending physician: Yes
I performed the substantive portion of visit, reviewed & personally made and approve the management plan that is documented in note by myself or TRICIA.: Yes
I performed a history and physical exam of patient and discussed management with resident, I reviewed resident's note and agree with documented findings and plan of care.: Yes
ED Attending Note:
89-year-old male with history of CAD status post stenting, CHF, CKD, A-fib on Coumadin, diabetes presenting for left elbow and upper extremity pain. Patient reports 6 days ago he struck his elbow on a table with subsequent pain. He has since been
unable to fully range his upper extremity. He has been holding it on his lap with a pillow and ice underneath it, taking Tylenol for pain. He has since developed swelling and pain to the hand. He notes that last night it started to get warm.
Notes remote history of joint infections in his knees, and is now on daily penicillin. Denies fever. Denies numbness or tingling to the extremity. Vital signs normal.
On exam, patient with focal swelling to the elbow joint, as well as the wrist and hand with generalized warmth and slight erythema. Range of motion limited secondary to pain, however range of motion is intact to the hand and wrist. Pulses intact
and sensation intact. Patient had x-ray imaging prior to my assessment, which shows no obvious fracture, however there is an anterior fat pad which may indicate an occult fracture. Ultimately do suspect that pain and swelling is trauma related,
however there is some infectious findings given swelling and warmth with slight erythema. Patient had laboratory analysis obtained prior to my assessment, leukocytosis, which may be reactive. Remote history of gout in the past. Will add on uric
acid and inflammatory markers. Patient is on Coumadin, higher risk for joint aspiration. Will discuss with orthopedics.
17:00 -in discussion with orthopedics, suspect more likely cellulitis and septic arthritis given distribution. Recommending admission for antibiotics.
Discharge Plan
Departure
Patient Disposition: Admit
Date of Disposition: 11/28/24
Time of Disposition: 17:00
Presentation/result/management discussed w/ accepting MD/DO: Hospitalist
Discharge Problem:
Injury of elbow, left, Cellulitis
Interventions
Interventions:
*Risk Screen - Suicide Last Done: 11/28/24 19:52
*General Assessment Last Done: 11/28/24 13:31
*Neglect/Abuse Screening Last Done: 11/28/24 10:23
*ED- Fall Risk Assessment Last Done: 11/28/24 13:31
*ED COVID-19 Vaccine History Last Done: 11/28/24 19:52
*Nursing Disposition Last Done: 11/28/24 19:44
ED-Musculoskeletal Assessment Last Done: 11/28/24 13:31
Discharge Date and Time
Discharge Date/Time: 11/28/24 19:50
[2024-11-28 13:28] VITALS: BMI 24.4
[2024-11-28 13:33] VITALS: BP 144/70
[2024-11-28] MEDS: PERCOCET 5/325 1 TABLET PO (13:33)
[2024-11-28 13:46] LABS: % Basophils 0.2 % (0-2); % Eosinophils 0.9 % (0-6); % Immature Granulocytes 0.5 % (0-0.5); % Lymphocytes 5.8 % (20.5-51.1); % Monocytes 7.2 % (1.7-9.3); % Neutrophils 85.4 % (42.2-75.2); Absolute Eosinophils 0.1 10^3/uL (0-0.7); Absolute Immature Granulocytes 0.1 10^3/uL (0-0.05); Absolute Lymphocytes 0.9 10^3/uL (1.2-3.4); Absolute Monocytes 1.1 10^3/uL (0.1-0.6); Absolute Neutrophils 13.1 10^3/uL (1.4-6.5); Hematocrit 36.1 % (39.0-52.0); Mean Corp Hgb Conc. 33.2 g/dL (33.0-37.0); Mean Corpuscular Hgb 29.5 pg (27.0-31.0); Mean Corpuscular Volume 88.7 fL (80.0-94.0); Mean Platelet Volume 10.6 fL (7.4-10.4); Nucleated Red Blood Cells % 0 % (-); Platelet Count 194 10^3/uL (130-400); Red Blood Cell Count 4.07 10^6/uL (4.70-6.10); Red Cell Dist. Width 17.9 % (11.5-14.5); White Blood Cell Count 15.3 10^3/uL (4.8-10.8)
[2024-11-28 13:52] LABS: INR 1.98; PT 22.7 Sec (11.4-14.6)
[2024-11-28 14:29] LABS: ALT (SGPT) 43 U/L (0-50); AST (SGOT) 32 U/L (17-59); Albumin 3.8 g/dl (3.5-5.0); Alkaline Phosphatase 194 U/L (38-126); Blood Urea Nitrogen 42 mg/dl (9-20); Calcium 8.9 mg/dl (8.4-10.2); Carbon Dioxide 23 mmol/L (22-30); Chloride 107 mmol/L (98-107); Estimated Creatinine Clearance 35 ml/min; Glucose 103 mg/dl (70-99); Sodium 138 mmol/L (135-145); Total Bilirubin 1.1 mg/dl (0.2-1.3); Total Protein 6.9 g/dl (6.3-8.2)
[2024-11-28 17:06] LABS: Erythrocyte Sed Rate 56 mm/hour (0-20)
[2024-11-28 17:31] LABS: Uric Acid 9.6 mg/dl (3.5-8.5)
[2024-11-28 17:38] VITALS: BP 141/67
[2024-11-28] MEDS: DILAUDID 0.25 MG IV ×2 (17:40→22:05)
[2024-11-28 18:00] VITALS: BP 134/55
--- NOTE | 2024-11-28 18:02 | HPS.HSE ---
Family Physician
-
Family Physician: Grace Aguilar MD
Chief Complaint
-
Left elbow pain and elbow/hand swelling
History of Present Illness
Patient is an 89-year-old male with a past medical history of chronic/permanent atrial fibrillation on warfarin, asthma, coronary artery disease status post LAD stent in the past, heart failure with preserved ejection fraction, essential
hypertension, hyperlipidemia, [id number] type 2 diabetes mellitus, coronary artery disease status post AL, chronic kidney disease stage II, valvular heart disease status post TAVR in the past, peripheral arterial disease, bilateral
carotid disease, Schamber's disease, pulmonary hypertension, chronic ambulatory dysfunction, and recurrent cellulitis with wounds who has been having balance issues since he lost his fifth metatarsal on his right and a chronic left foot wound who
ambulates with a rollator.
He stated that approximately 1 week ago on Friday he lost his balance and fell backwards on to the bed landing on his left elbow. He stated that he heard a 'snap' at that time but did land on the mattress. 2 days later, he was reaching to flush
the toilet and hit his left elbow on the corner of the sink. He states he has been using ice and has not been able to sleep secondary to the pain. He is using Tylenol which is not helping. He denies any fevers or chills. He is complaining of
swelling of the left hand and has inability to use the entire left arm since the traumatic hit to the corner of the sink.
He knows Amandeep Grove and has been speaking with him to get an appointment in the office this week. Unfortunately, he cannot take the pain any further. He presents with the above complaints and will be admitted.
Of note, patient was recently in the hospital for a bladder infection and some of his medications have been changed.
Medical History
Past Medical History
Past Medical History: Reports Other
Additional Past Medical History:
Chronic/permanent atrial fibrillation
Asthma
Coronary artery disease status post AL with LAD stent
Skin cancer
Heart failure with preserved ejection fraction
Essential hypertension
Hyperlipidemia
Type 2 diabetes not insulin-dependent
Chronic kidney disease stage II
valvular heart disease status post TAVR
Peripheral arterial disease
Bilateral carotid disease
Schambers disease
Pulmonary hypertension
Chronic ambulatory dysfunction
Gout
Recent bladder infection
Recent hypoxemia requiring home oxygen now off
Past Surgical History: Reports Other
Additional Past Surgical History:
Tab are in 2019, right lower extremity fifth toe amputation in 2020, hernia repair
Social History
Tobacco: Former Smoker (Quit in 1967)
Alcohol: Daily
Drug: None
Family History
Family History: Not pertinent
Allergies / Home Medications
Allergies reflects when Allergies were last updated in [facility].
Home Medications with original date entered in [facility]
Allergy/Medication List:
Allergies
Allergy/AdvReac Type Severity Reaction Status Date / Time
cefazolin Allergy Rash; Verified 10/10/24 08:28
tolerates
PCN
clopidogrel [From Plavix] Allergy Rash Verified 10/10/24 08:28
Home Medications--medications are not reconciled--I personally did review his medications with him
multivitamin with folic acid 400 mcg tablet (Tab-A-Janay) 1 tab PO DAILY Supplement 10/16/18
atorvastatin 40 mg tablet 40 mg PO QPM #90 tabs 01/20/19
pantoprazole 40 mg tablet,delayed release 40 mg PO DAILY ##90 01/20/19
aspirin 81 mg tablet,delayed release 81 mg PO DAILY Blood clot prevention/tx 08/08/19
ferrous sulfate 325 mg (65 mg iron) tablet (FeroSul) 325 mg PO QPM Supplement 05/23/21
potassium chloride 20 mEq tablet,extended release(part/cryst) (Klor-Con M) 40 meq PO BID Electrolyte Repletion 05/23/21
colchicine 0.6 mg tablet 0.6 mg PO DAILY Gout 03/01/22
penicillin V potassium 500 mg tablet 500 mg PO BID Infection 03/01/22
warfarin 3 mg tablet 3 mg PO TUWETH@1800 Blood Clot Prevention/Tx 03/01/22
warfarin 6 mg tablet 6 mg PO SuMoFrSa@1800 03/01/22
acetaminophen 325 mg tablet (Tylenol) 650 mg PO DAILYPRN PRN mild pain 10/10/24
diltiazem HCl 120 mg capsule,24 hr,extended release 120 mg PO HS Heart Disease/Condition 10/10/24
doxazosin 2 mg tablet 2 mg PO QPM 10/10/24
furosemide 80 mg tablet 80 mg PO BID@0800,1600 #60 tabs 10/16/24
spironolactone 25 mg tablet 25 mg PO DAILY #30 tabs 10/16/24
Review of Systems
-
History Source: Patient and Family
Constitutional: Denies Fever or Chills
EENT: Reports No Symptoms
Respiratory: Reports No Symptoms; Denies Cough or Trouble Breathing
Cardiac: Reports No Symptoms; Denies Chest Pain
Abdomen/GI: Reports No Symptoms; Denies Abdominal Pain, Nausea, Vomiting or Diarrhea
: Reports No Symptoms; Denies Dysuria
Musculoskeletal: Reports Other (Left arm and hand pain and swelling as indicated above)
Skin: Reports No Symptoms
Neurological: Reports No Symptoms; Denies Dizzy or Headache
Endocrine: Reports No Symptoms
Hematologic/Lymphatic: Reports No Symptoms
Psych: Reports No Symptoms
Physical Exam
Vital Signs
Vital Signs
Temp Pulse Resp BP Pulse Ox
97.6 F 74 16 144/70 95
11/28/24 10:23 11/28/24 10:23 11/28/24 10:23 11/28/24 13:33 11/28/24 13:33
Physical Exam
General: Well Developed, Well Nourished and Appears Chronically Ill
HEENT: NormoCephalic, Anicteric and Atraumatic; No Oxygen
Respiratory: Clear; No Wheezes, Rales, Rhonchi or Crackles
Cardiac: Irregular Rhythm
GI: Soft, Non Tender, Non Distended and Normal Bowel Sounds
Musculoskeletal: No Clubbing, No Cyanosis and Other (Left hand markedly swollen, left elbow swollen and sore to touch, redness between elbow and wrist, mildly warm to touch)
Neuro: Awake and Alert
Psych: Calm
Laboratory Results
-
11/28/24 13:
11/28/24:
Laboratory Results
PT 22.7 Sec (11.4-14.6) H 11/28/24:
INR 1.98 11/28/24:
Total Bilirubin 1.1 mg/dl (0.2-1.3) 11/28/24
AST 32 U/L (17-59) 11/28/24
ALT 43 U/L (0-50) 11/28/24:
Alkaline Phosphatase 194 U/L (38-126) H 11/28/24:
Impression/Plan
-
Patient is an 89-year-old male
Traumatic left elbow injury with resultant swelling to the left forearm and hand--ADMIT--x-ray of the elbow and hand do not show fracture--however, cannot rule out occult fracture--will check CT scan of the left elbow--will consult
orthopedics--there may be some component of cellulitis with white count of 15--will start with vancomycin--May need ID consult
Permanent atrial fibrillation-- rate adequately controlled--Continue home diltiazem ER and warfarin-- Monitor INR.
Heart failure with preserved ejection fraction--no acute exacerbation--Lasix doses have been changed and spironolactone has been added since the last admission
Essential HTN-- continue home diltiazem and doxazosin 2mg
Diabetes mellitus type 2--metformin has been on hold since last admission-- Diabetic diet, accuchecks, ISS--check A1C
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
CAD status post AL with stents placement/HLD-- continue home atorvastatin 40mg, asa 81mg
GERD-- continue home pantoprazole 40mg
Chronic hypokalemia--potassium doses have been adjusted due to the addition of spironolactone
Gout-- now off colchicine
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
Recent hypoxemia requiring home oxygen now off--family physician would like him to have oxygen and keep his oxygen levels 95% or higher--no need for that at this point--lowest pulse ox that I reviewed is 92%
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
Chronic ambulatory dysfunction--uses rollator but cannot due to left arm
Recent UTI last admission--resolved
Valvular heart disease status post TAVR
Code status: DNR
DVT proph-- warfarin, SCDs
[2024-11-28] MEDS: VANCOCIN 540 MG IV (18:04)
[2024-11-28 19:45] VITALS: BP 131/63; BMI 25.1
[2024-11-28 20:07] VITALS: BMI 25.1
--- NOTE | 2024-11-28 20:10 | PTCARENOTE ---
Pt arrived to room 415-01. Pt stand + pivot from stretcher to bed with x2 assist. Pt AAOx3, VSS. Pt with 3LNC. Bed alarm in place. Pt oriented to room, call maddox within reach. Son at bedside.
--- NOTE | 2024-11-28 20:23 | PHA.VAN.IN ---
Assessment
- Assessment
Renal Function: Appears similar to baseline (ckd ii)
Concomitant Antimicrobials: pen vk
Plan
- Plan
Initial / Loading Dose: 2000mg 11/28
Maintenance Regimen: prn by level
Monitoring: random 11/29 in am
Pharmacokinetics Vancomycin I
- -
Patient Age: 89
Patient Sex: Male
Vancomycin Day #: 1
Indication: Skin And Soft Tissue
Requesting Provider: Dr. Orellana
Pertinent Antimicrobial Allergies:
cefazolin=rash
Height / Weight:
Height 6 ft 2 in
Actual Weight 88.706 kg
IBW in k.2
- Vital Signs / Lab Results
Temp Pulse Resp BP Pulse Ox
97.7 F 79 18 131/63 100
11/28/24 19:45 11/28/24 19:45 11/28/24 19:45 11/28/24 19:45 11/28/24 19:45
Lab Results - Hematology
11/28/24
13:29
WBC 15.3 H
Lab Results - Chemistry
11/28/24
13:29
BUN 42 H
Creatinine 1.7 H
Estimated Creat Clear 35
Albumin 3.8
[2024-11-28] MEDS: KCL 20 MEQ PO (22:04)
[2024-11-28] MEDS: CARDIZEM CD 120 MG PO (22:04)
[2024-11-28] MEDS: PEN VK 500 MG PO (22:04)
[2024-11-28 22:42] LABS: Glucose - Point of Care 111 mg/dl (70-99)
[2024-11-29] MEDS: DILAUDID 0.25 MG IV (04:03)
[2024-11-29 06:00] VITALS: BMI 24.6
[2024-11-29 07:00] VITALS: BP 124/59
[2024-11-29] MEDS: PROTONIX 40 MG PO (07:29)
[2024-11-29] MEDS: PEN VK 500 MG PO ×2 (07:29→20:04)
[2024-11-29] MEDS: ALDACTONE 25 MG PO (07:29)
[2024-11-29] MEDS: ASPIR LOW (ENTERIC COATED) 81 MG PO (07:29)
[2024-11-29] MEDS: LASIX 80 MG PO ×2 (07:29→16:28)
[2024-11-29] MEDS: THERAGRAN 1 TABLET PO (07:30)
[2024-11-29] MEDS: MIRALAX 17 GRAMS PO (07:30)
[2024-11-29] MEDS: KCL 20 MEQ PO ×2 (07:30→20:05)
[2024-11-29] MEDS: NOVOLOG FLEXPEN-LOW RESISTANCE SC ×3 (07:53→16:28)
[2024-11-29 07:54] LABS: Glucose - Point of Care 123 mg/dl (70-99)
[2024-11-29 08:02] LABS: INR 1.98
[2024-11-29 08:07] LABS: Hematocrit 34.5 % (39.0-52.0); Hemoglobin 11.3 g/dL (13.0-18.0); Mean Corp Hgb Conc. 32.8 g/dL (33.0-37.0); Mean Corpuscular Hgb 29.7 pg (27.0-31.0); Mean Corpuscular Volume 90.6 fL (80.0-94.0); Mean Platelet Volume 10.9 fL (7.4-10.4); Platelet Count 202 10^3/uL (130-400); Red Blood Cell Count 3.81 10^6/uL (4.70-6.10); Red Cell Dist. Width 18.1 % (11.5-14.5); White Blood Cell Count 14.4 10^3/uL (4.8-10.8)
--- NOTE | 2024-11-29 08:12 | W.PN.HOSP.TC ---
Addendum entered and electronically signed by Simran Orellana MD 11/29/24 18:53:
I saw and evaluated the patient independently. I reviewed the resident�s note and agree with findings and plan as documented by Dr. Cespedes.
GENERAL: chronically ill appearing male in no apparent distress
HEENT: NC/AT
HEART: irreg irreg
LUNGS : clear to auscultation bilaterally
ABDOM: soft, nontender, nondistended, + bowel sounds
EXT: no cyanosis, clubbing--left arm redness improved--arm in sling--still with swelling
NEUROLOGIC: grossly intact
Traumatic left elbow injury with resultant swelling to the left forearm and hand--x-ray of the elbow and hand do not show fracture-- CT scan of the left elbow also neg for fracture--apprec orthopedics--there may be some component of cellulitis with
white count of 15--cont vancomycin--apprec ID consult--uric acid and inflammatory markers elevated--gout vs pseudogout--restart colchicine
Permanent atrial fibrillation-- rate adequately controlled--Continue home diltiazem ER and warfarin-- Monitor INR.
Heart failure with preserved ejection fraction--no acute exacerbation--Lasix doses have been changed and spironolactone has been added since the last admission
Essential HTN-- continue home diltiazem and doxazosin
Diabetes mellitus type 2--metformin has been on hold since last admission-- Diabetic diet, accuchecks, ISS--check A1C
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
CAD status post WI with stents placement/HLD-- continue home atorvastatin 40mg, asa 81mg
GERD-- continue home pantoprazole 40mg
Chronic hypokalemia--potassium doses have been adjusted due to the addition of spironolactone
Gout-- now off colchicine--uric acid level increased--restart
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
Recent hypoxemia requiring home oxygen now off--family physician would like him to have oxygen and keep his oxygen levels 95% or higher--no need for that at this point--lowest pulse ox that I reviewed is 92%
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
Chronic ambulatory dysfunction--uses rollator but cannot due to left arm
Recent UTI last admission--resolved
Valvular heart disease status post TAVR
Code status: DNR
DVT proph-- warfarin, SCDs
Original Note:
Today's Communication/Plan
-
-ID consult
-Restarted on colchicine
Assessment / Plan
Assessment / Plan
Patient is an 89-year-old male presented to ER with a recent trauma history on his left elbow resulting swelling to the left forearm and hand.
#Left upper extremity trauma
-Swelling of left upper extremity - cellulitis may be contributing- started on Vancomycin
-WBC elevated,- CRP elevated to 193.5
-Infectious disease consulted
-X ray of elbow and hand: No acute fracture or dislocation
-CT elbow: No convincing CT evidence for acute fracture or dislocation.
-Orthopedics saw the patient considering: Exam and history most consistent with secondary inflammatory arthropathy with higher suspicion for CPPD-with the plan for fluid collection and possible aspiration if symptoms do not improve
- Patient stopped using his colchicine on 11/12/2024-restarted
#Chronic hypokalemia
-Has been on potassium chloride 20 mEq twice daily
-Potassium doses have been adjusted due to the addition of spironolactone
-Follow BMP
-Replace if needed
-Has result of hyperkalemia with 5.2 on 11/29/2024--adjusting potassium chloride dose can be considered with follow-up levels
#Gout
- Patient stopped taking colchicine 11/12/2024
- Uric acid levels elevated-9.6
- Restarted colchicine due to concerning of contribution of gout/pseudogout his left hand and elbow swelling
#Permanent atrial fibrillation
-Continue home diltiazem ER and warfarin
-Monitor INR
#Heart failure with preserved ejection fraction
-No clinical signs of volume overload
-Follow weight changes/input and outputs
- Continue spironolactone 25 mg for now(Lasix doses have been changed and spironolactone has been added since the last admission)
#Essential HTN
-Continue home diltiazem and doxazosin 2mg
#Diabetes mellitus type 2
-Likely stable/undercontrol given his last hemoglobin A1c level at 5.6 on 11/28/24(previous one on 10/11/24 is 5.8)
-Hold metformin
- Continue diabetic diet
-Accuchecks
-ISS
#CKD stage II
- Cr 1.6 (baseline 1.4-1.6)
- Follow-up BMP
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
-follows with podiatry outpt
-Wound care consulted
#CAD status post WI with stents placement/HLD
-Continue home atorvastatin 40mg, asa 81mg
#GERD
-Pantoprazole 40mg
#H/o recurrent cellulitis
-Continue home penicillin 500mg BID for prophylaxis
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
Recent hypoxemia requiring home oxygen now off--family physician would like him to have oxygen and keep his oxygen levels 95% or higher--no need for that at this point--lowest pulse ox that I reviewed is 92%
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
#Chronic ambulatory dysfunction--uses rollator but cannot due to left arm
#Recent UTI last admission--resolved
#Valvular heart disease status post TAVR
#Code status: DNR
#DVT proph-- warfarin, SCDs
Anticipated Discharge: 24 - 48 hours
Subjective/Interval History
-
Date of Service: November 29, 2024
The patient reports no complaints expect his left elbow and hand pain.
Objective Data
-
Labs:
Laboratory Results
11/29/24 11/29/24
06:57 06:58
WBC 14.4 H
Hgb 11.3 L
Hct 34.5 L
Plt Count 202
PT 23.0 H
INR 1.98
Sodium Pending
Potassium Pending
Chloride Pending
Carbon Dioxide Pending
BUN Pending
Creatinine Pending
Glucose Pending
Calcium Pending
Total Bilirubin Pending
AST Pending
ALT Pending
Alkaline Phosphatase Pending
Vital Signs:
Vital Signs
Temp Pulse Resp BP Pulse Ox
97.9 F 81 20 124/59 96
11/29/24 07:00 11/29/24 07:00 11/29/24 07:00 11/29/24 07:00 11/29/24 07:00
I&O
11/28/24 11/29/24 11/30/24
06:59 06:59 06:59
Intake Total 480 / 480
Output Total 750 / 750
Balance -270 / -270
Review of Systems
-
History Source: Patient
EENT: Reports No Symptoms Reported
Respiratory: Reports No Symptoms
Cardiac: Reports No Symptoms
Abdomen/GI: Reports No Symptoms
Genitourinary: Reports No Symptoms
Musculoskeletal: Reports Other (Left arm and hand pain and swelling on left hand)
Skin: Reports Other (left hand redness )
Neuro: Reports No Symptoms
Physical Exam
-
General: Well Developed, Well Nourished and Appears Chronically Ill
HEENT: Normocephalic and Atraumatic
Respiratory: Clear to Auscultation
Cardiac: Regular Rhythm and S1/S2
GI: Soft, Nontender and Nondistended
Musculoskeletal: No Clubbing, No Cyanosis, No Edema and Other (Left hand seems significantly swollen, left elbow mildly swollen, redness on elbow and wrist)
Skin: Warm (left hand ) and Other (some redness on left hand and wrist )
Neuro: Awake, Alert, Oriented and AO x 3
Psych: Calm
--- NOTE | 2024-11-29 08:13 | W.PN.UPDATE ---
Update Note
Progress Note Update
Full consult to follow. Patient was seen and examined as well by Dr. Alvarez
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
Continue treatment for cellulitis with consideration of additional treatment for crystal arthropathy as his medical history allows.
Orthopedic surgery will continue to follow; if symptoms not improving consider additional imaging to assess for fluid collection and possible aspiration if warranted
[2024-11-29 08:14] LABS: Vancomycin Random 15.1 ug/ml
[2024-11-29 08:31] LABS: ALT (SGPT) 39 U/L (0-50); AST (SGOT) 26 U/L (17-59); Albumin 3.5 g/dl (3.5-5.0); Alkaline Phosphatase 209 U/L (38-126); Blood Urea Nitrogen 39 mg/dl (9-20); Calcium 8.6 mg/dl (8.4-10.2); Carbon Dioxide 21 mmol/L (22-30); Chloride 110 mmol/L (98-107); Estimated Creatinine Clearance 37 ml/min; Glucose 110 mg/dl (70-99); Potassium 5.2 mmol/L (3.5-5.1); Sodium 141 mmol/L (135-145); Total Protein 6.2 g/dl (6.3-8.2); eGFR 41.19
--- NOTE | 2024-11-29 10:12 | PHA.VAN.FU ---
Vancomycin Assessment / Plan
- Assessment
Renal Function: Stable
WBC's are: Stable
In the past 24 hrs, patient has been: Afebrile
- Assessment - Therapeutic Drug Monitoring
Random Level: 15.1 - drawn ~13H after 2g loading dose
- Dosing Plan
Dosing by Level: Re-dose today (Vanc 1000mg)
- Monitoring Plan
Random Level: 11/30 0600
- Follow Up
Pharmacy will continue to follow.
Vancomycin Follow UP
- -
Patient Age: 89
Patient Sex: Male
Vancomycin Day #: 2
Indication: Skin And Soft Tissue
Requesting Provider: Dr. Orellana
Pertinent Antimicrobial Allergies:
cefazolin - rash
Height / Weight:
Height 6 ft 2 in
Actual Weight 86.75 kg
IBW in k.2
Pertinent Past Medical History: CKD (baseline 1.4-1.6), DM 2
- Vital Signs / Lab Results
Temp Pulse Resp BP Pulse Ox
97.9 F 81 20 124/59 95
11/29/24 07:00 11/29/24 07:00 11/29/24 07:00 11/29/24 07:00 11/29/24 07:30
Lab Results - Hematology
11/28/24 11/29/24
13:29 06:58
WBC 15.3 H 14.4 H
Lab Results - Chemistry
11/28/24 11/29/24
13:29 06:58
BUN 42 H 39 H
Creatinine 1.7 H 1.6 H
Estimated Creat Clear 35 37
Albumin 3.8 3.5
Therapeutic Drug Monitoring
Random Vancomycin 15.1 ug/ml 11/29/24 06:57
[2024-11-29 11:15] LABS: Glucose - Point of Care 131 mg/dl (70-99)
[2024-11-29 12:11] LABS: Glycohemoglobin (HgbA1c) 5.6 % (4.0-5.6)
[2024-11-29] MEDS: VANCOCIN 200 IV (12:33)
--- NOTE | 2024-11-29 14:30 | WOUNDNOTE ---
[facility] RN note: Patient admitted with Cellulitis and injury to L elbow.
See H&P for complete history.
PMH: ED Past Medical History: Arrthythmia (Atrial fibrillation), Asthma, CAD, Cancer (Skin), CHF, GERD, HTN, NIDDM and Other (Carotid stent, pericarditis, neuropathy, back pain)
ED Past Surgical History: Cardiac (Carotid stent) R foot surgery for osteomyelitis.
Wound Location and type/assessment: Patient known to service, last seen 10/11/24. Admitted with healing L lateral ankle full thickness ulcer, reeves base, scant drainage. Past report said it was caused by a shoe buckle, he is being followed by
Alex. R heel and foot with dry old healed surgical sites, plantar aspect with red dry scab. Patient stood up from chair with assistance, sacrum intact. R 3rd toe with dry scab. L 1st toe plantar with intact blood blister, no drainage. Patient
reports he stubbed his toe. L dorsal foot with blanchable pink skin, skin warm and dry. L heel is blanchable red. R arm with tiny healed skin tear, silicone foam in use. L knee with intact scab from an abrasion.
Appetite: Good.
Pressure redistribution devices in place: On Accumax, pillow under calves.
Plan: Will order Santyl for L ankle ulcer to start in am, today applied adaptic and silicone foam. silicone foam applied to R plantar foot to protect. L dorsal foot foam maintained. Adhesive foams applied to heels. Skin prep applied to L great toe.
Will confirm orders with hospitalist and updated nurse Marielena. Updated care plan and will follow as needed.
Note to case management of equipment requested for discharge: VN if patient unable to do wound care
Recommend follow up with Dr. Johnson.
[2024-11-29] MEDS: COLCHICINE 0.6 MG PO (14:32)
[2024-11-29 15:00] VITALS: BP 136/59
[2024-11-29 15:41] VITALS: BP 136/59; PULSE 86; O2SAT 93
--- NOTE | 2024-11-29 16:06 | CON.ID ---
Consultation
-
Date/Time Consultation Requested: 11/29/2024 1307
Date/Time Consultation Performed: 11/29/2024 1543
Requesting Provider: Dr. Cespedes
Performing Provider: Dr. Espinoza
Reason for Consultation: Left arm cellulitis
Chief Complaint / Past History
History of Present Illness
Karel Michel is an 89-year-old man being evaluated regarding left upper extremity cellulitis. History is obtained from chart review, along with patient interview.
The patient recently was admitted to [facility] in late October, during which time he was treated for acute urinary retention and acute CHF. He reports that once home he banged his left elbow while getting into his wheelchair. Over the past
several days, though, he has noticed increasing swelling of his elbow area, along with swelling of his left wrist. He notes the wrist is quite painful now even to slight movement. He notes that he recently stopped colchicine on November 12, as his PCP
said he did not need it.
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
Past History
Additional Past Medical History:
Urinary retention
CHF
Pulmonary hypertension
A-fib (on warfarin)
CAD
HTN
DM
CKD
Asthma
Additional Past Surgical History:
Fifth met resection
Allergy History:
cefazolin Allergy (Verified 10/10/24 08:28)
Rash (2019); tolerates PCN
clopidogrel [From Plavix] Allergy (Verified 10/10/24 08:28)
Rash
Medications Reviewed: Yes
Current Antibiotics:
Vancomycin
Social History
Alcohol: Daily
Drug: None
Personal:
Living: Alone
Employment: Retired
Family History
Family History: Not Pertinent
Review of Systems
Vital Signs
Temp Pulse Resp BP Pulse Ox
97.5 F 86 20 136/59 93
11/29/24 15:00 11/29/24 15:00 11/29/24 15:00 11/29/24 15:00 11/29/24 15:00
Physical Exam
Physical Exam
Constitutional: No Acute Distress, Comfortable and Non-toxic
Eyes: No Conjunctival Hemorrhage and Sclera Anicteric
Cardiovascular: S1/S2; Negative S3/S4
Pulmonary: Clear and Non Labored; Negative Wheezes, Rales or Rhonchi
Gastrointestinal: Soft, Non Tender and Non Distended
Extremities: Edema (left elbow, forearm and wrist.) and Erythema (left elbow, forearm and wrist.)
Musculoskeletal: Joint Swelling (left wrist)
Skin: Warm and Dry; Negative Rash or Jaundice
Neurological: Awake and Alert
Psychological: Calm
Lab / Diagnostic Study Results
11/29/24 06:58
11/29/24 06:58
Abs Immat Gran (auto) 0.1 10^3/uL (0-0.05) H 11/28/24 13:29
Absolute Neuts (auto) 13.1 10^3/uL (1.4-6.5) H 11/28/24 13:29
Absolute Lymphs (auto) 0.9 10^3/uL (1.2-3.4) L 11/28/24 13:29
Absolute Monos (auto) 1.1 10^3/uL (0.1-0.6) H 11/28/24 13:29
Absolute Basos (auto) 0.0 10^3/uL (0-0.2) 11/28/24 13:29
Immature Gran % 0.5 % (0-0.5) 11/28/24 13:29
Neutrophils % 85.4 % (42.2-75.2) H 11/28/24 13:29
Lymphocytes % 5.8 % (20.5-51.1) L 11/28/24 13:29
Monocytes % 7.2 % (1.7-9.3) 11/28/24 13:29
Eosinophils % 0.9 % (0-6) 11/28/24 13:29
Basophils % 0.2 % (0-2) 11/28/24 13:29
ESR 56 mm/hour (0-20) H 11/28/24 13:29
PT 23.0 Sec (11.4-14.6) H 11/29/24 06:57
INR 1.98 11/29/24 06:57
C-Reactive Protein 193.50 mg/L (0.0-10.00) H 11/28/24 13:29
11/28/24
13:29
Uric Acid 9.6 H
Microbiology Results
Micro:
11/29/24 03:53 MRSA Screen - Pending
Nose
Imaging:
11/28/2024 CT left upper extremity: No CT evidence for acute fracture or dislocation. There is a moderate elbow joint effusion.
Assessment / Plan
Left wrist, forearm/arm cellulitis
Suspected gout
Leukocytosis
Cephalosporin (cefazolin) allergy
Elevated ESR and CRP
Urinary retention
CHF
Pulmonary hypertension
A-fib (on warfarin)
CAD
HTN
DM
CKD
Recommendations:
Continue with vancomycin for the present.
Follow levels closely to prevent nephrotoxicity.
Left upper extremity elevation to decrease edema
Follow white count and temperature curve
Follow for clinical improvement
--- NOTE | 2024-11-29 16:16 | VNURNOTE ---
Chart reviewed. Patient is current with [facility] nursing. Will continue to follow hospital course and DC plans.
[2024-11-29 16:23] LABS: Glucose - Point of Care 130 mg/dl (70-99)
[2024-11-29] MEDS: CARDURA 2 MG PO (16:28)
[2024-11-29] MEDS: FEOSOL 325 MG PO (16:29)
[2024-11-29] MEDS: LIPITOR 40 MG PO (16:29)
[2024-11-29] MEDS: COUMADIN 3 MG PO ×2 (16:29→16:37)
[2024-11-29] MEDS: COUMADIN 6 MG PO (16:38)
--- NOTE | 2024-11-29 17:20 | CM ---
Patient seen at bedside with physicians. Patient requesting referral to VN when patient home with VN. Patient plan is for further work up. Patient does not want to go to SNF. CM will continue to follow for discharge planning needs.
Plan; home with VN vs SNF
[2024-11-29] MEDS: ROXICODONE 5 MG PO (20:05)
[2024-11-29] MEDS: CARDIZEM CD 120 MG PO (21:35)
--- NOTE | 2024-11-29 21:36 | CON.ORTHO ---
Consultation
-
Date/Time Consultation Requested: 11/28/2024 1937
Date/Time Consultation Performed: 11/29/2024 0745
Requesting Provider: Dr. Simran Orellana
Performing Provider: SOFIYA Wynn, Dr. Theron Alvarez
Reason for Consultation: Left arm pain
Consultation - Orthopedics
History
89-year-old male with complicated past medical history for evaluation of left upper extremity pain and swelling. He reports approximately week ago he had a mechanical injury of his left elbow and days later had subsequent onset of pain and swelling
that has been increasingly worsening. He reports pain became intolerable and presented to the emergency room was admitted for concern for possible cellulitis requiring IV antibiotics. Reports difficulty with generalized range of motion. He does
report a history of pseudogout and documented medical history of gout
Allergies / Home Medications
Past Medical History
Past Medical History: Reports Other
Additional Past Medical History:
Chronic/permanent atrial fibrillation
Asthma
Coronary artery disease status post [place] with LAD stent
Skin cancer
Heart failure with preserved ejection fraction
Essential hypertension
Hyperlipidemia
Type 2 diabetes not insulin-dependent
Chronic kidney disease stage II
valvular heart disease status post TAVR
Peripheral arterial disease
Bilateral carotid disease
Schambers disease
Pulmonary hypertension
Chronic ambulatory dysfunction
Gout
Recent bladder infection
Recent hypoxemia requiring home oxygen now off
Past Surgical History: Reports Other
Additional Past Surgical History:
Tab are in 2019, right lower extremity fifth toe amputation in 2020, hernia repair
Social History
Tobacco: Former Smoker (Quit in 1967)
Alcohol: Daily
Drug: None
Family History
Family History: Not pertinent
Allergy/AdvReac Type Severity Reaction Status Date / Time
cefazolin Allergy Rash; Verified 10/10/24 08:28
tolerates
PCN
clopidogrel [From Plavix] Allergy Rash Verified 10/10/24 08:28
�Medication �Instructions �Recorded
multivitamin with folic acid 400 1 tab PO DAILY Supplement 10/16/18
mcg tablet (Tab-A-Janay)
atorvastatin 40 mg tablet 40 mg PO QPM #90 tabs 01/20/19
pantoprazole 40 mg tablet,delayed 40 mg PO DAILY ##90 01/20/19
release
aspirin 81 mg tablet,delayed 81 mg PO DAILY Blood clot 08/08/19
release prevention/tx
ferrous sulfate 325 mg (65 mg 325 mg PO QPM Supplement 05/23/21
iron) tablet (FeroSul)
potassium chloride 20 mEq 40 meq PO BID Electrolyte Repletion 05/23/21
tablet,extended
release(part/cryst) (Klor-Con M)
penicillin V potassium 500 mg 500 mg PO BID Infection 03/01/22
tablet
warfarin 3 mg tablet 3 mg PO SUMOFRSA@1800 Blood Clot 03/01/22
Prevention/Tx
warfarin 6 mg tablet 6 mg PO TUWETH@1800 03/01/22
diltiazem HCl 120 mg capsule,24 120 mg PO QPM Heart 10/10/24
hr,extended release Disease/Condition
doxazosin 2 mg tablet 2 mg PO QPM Blood Pressure 10/10/24
spironolactone 25 mg tablet 25 mg PO DAILY #30 tabs 10/16/24
acetaminophen 500 mg tablet 500 mg PO DAILYPRN PRN mild pain 11/28/24
furosemide 80 mg tablet 80 mg PO BID Fluid 11/28/24
Retention/Swelling
losartan 25 mg tablet 25 mg PO DAILY Blood Pressure 11/28/24
Vital Signs / Lab Results
Temp Pulse Resp BP Pulse Ox
97.5 F 86 20 136/59 93
11/29/24 15:00 11/29/24 15:00 11/29/24 15:00 11/29/24 15:00 11/29/24 15:00
PHYSICAL EXAM: Focused examination of left upper extremity shows moderate edema and redness focal around the elbow as well as the left wrist. Is apprehensive range of motion in both areas. No specific palpable fluid collection mild firmness about
the left olecranon bursa. Distal sensation and motor function demonstrated intact
IMAGING: X-rays and CT scan taken of the left upper extremity show no acute osseous abnormalities and soft tissue swelling and possible calcific bursitis of the olecranon.
11/29/24 06:58
11/29/24 06:58
ESR 56, CRP 193.5, WBC 14.4
Assessment / Plan
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
Continue treatment for cellulitis with consideration of additional treatment for crystal arthropathy as his medical history allows.
Orthopedic surgery will continue to follow; if symptoms not improving consider additional imaging to assess for fluid collection and possible aspiration if warranted
[2024-11-29 21:47] LABS: Glucose - Point of Care 150 mg/dl (70-99)
[2024-11-29 23:24] VITALS: BP 129/68
[2024-11-30] MEDS: ROXICODONE 5 MG PO (04:23)
[2024-11-30 06:00] VITALS: BMI 24.5
--- NOTE | 2024-11-30 06:28 | W.PN.UPDATE ---
Update Note
Progress Note Update
Patient seen and evaluated by Orthopedic surgery this morning. Since admission, he endorses mild improvement in symptoms. Despite improvement, he continues with left elbow and wrist pain with swelling. Currently on Vancomycin per ID. He denies any
constitutional symptoms. VSS.
PE: Focused examination of the left upper extremity, with attention to the left elbow, wrist, and hand reveals skin intact. Erythematous hue about the dorsum of the left wrist and hand with no significant erythematous changes about the elbow.
Elbow range of motion intact, however diminished secondary to pain. No specific palpable fluid collection about the olecranon bursa. Edema noted to the dorsum of the left hand. He is able to wiggle all fingers, however unable to demonstrate full
composite fist secondary to edema and pain. Sensation is intact to light touch. Capillary refill is less than 2 seconds.
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
- The patient reports mild improvement in symptoms since admission. Continue treatment.
- Continue treatment for cellulitis with consideration of additional treatment for crystal arthropathy as his medical history allows.
- Elevation and digital ROM as tolerated for edema control.
- Pain control per primary team. Sling for comfort.
- Orthopedic surgery will continue to follow; if symptoms not improving consider additional imaging to assess for fluid collection and possible aspiration if warranted.
[2024-11-30 07:00] VITALS: BP 152/55
[2024-11-30 07:19] LABS: Glucose - Point of Care 99 mg/dl (70-99)
[2024-11-30 07:49] LABS: Hematocrit 34.9 % (39.0-52.0); Hemoglobin 11.6 g/dL (13.0-18.0); Mean Corp Hgb Conc. 33.2 g/dL (33.0-37.0); Mean Corpuscular Hgb 29.5 pg (27.0-31.0); Mean Corpuscular Volume 88.8 fL (80.0-94.0); Mean Platelet Volume 10.4 fL (7.4-10.4); Platelet Count 205 10^3/uL (130-400); Red Blood Cell Count 3.93 10^6/uL (4.70-6.10); Red Cell Dist. Width 17.8 % (11.5-14.5); White Blood Cell Count 12.7 10^3/uL (4.8-10.8)
[2024-11-30 07:51] LABS: INR 1.72; PT 20.7 Sec (11.4-14.6)
--- NOTE | 2024-11-30 07:57 | W.PN.HOSP.TC ---
Addendum entered and electronically signed by Simran Orellana MD 11/30/24 14:52:
I saw and evaluated the patient independently. I reviewed the resident�s note and agree with findings and plan as documented by Dr. Cespedes.
GENERAL: chronically ill appearing male in no apparent distress
HEENT: NC/AT
HEART: irreg irreg
LUNGS : clear to auscultation bilaterally
ABDOM: soft, nontender, nondistended, + bowel sounds
EXT: no cyanosis, clubbing--left arm redness improved--arm in sling--still with swelling
NEUROLOGIC: grossly intact
Traumatic left elbow injury with resultant swelling to the left forearm and hand--x-ray of the elbow/hand and CT scan of the left elbow all neg for fracture--apprec orthopedics--there may be some component of cellulitis with white count of 15 but
improving--cont vancomycin--apprec ID consult--uric acid and inflammatory markers elevated--gout vs pseudogout--restarted colchicine
Permanent atrial fibrillation-- rate adequately controlled--Continue home diltiazem ER and warfarin-- Monitor INR.
Heart failure with preserved ejection fraction--no acute exacerbation--Lasix doses have been changed and spironolactone has been added since the last admission
Essential HTN-- continue home diltiazem and doxazosin
Diabetes mellitus type 2--metformin has been on hold since last admission-- Diabetic diet, accuchecks, ISS--check A1C
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
Ischemic ulcer L ankle with fat layer exposed [employer], follows with podiatry outpt-- Wound care consult
CAD status post [place] with stents placement/HLD-- continue home atorvastatin 40mg, asa 81mg
GERD-- continue home pantoprazole 40mg
Chronic hypokalemia--potassium doses have been adjusted due to the addition of spironolactone
Gout-- now off colchicine--uric acid level increased--restart
H/o recurrent cellulitis-- continue home penicillin 500mg BID for prophylaxis, on chronically [employer]
Recent hypoxemia requiring home oxygen now off--family physician would like him to have oxygen and keep his oxygen levels 95% or higher--no need for that at this point--lowest pulse ox that I reviewed is 92%
Asthma-- not on inhalers [employer]; duonebs prn
Chronic ambulatory dysfunction--uses rollator but cannot due to left arm
Recent UTI last admission--resolved
Valvular heart disease status post TAVR
Code status: DNR
DVT proph-- warfarin, SCDs
dispo--pt agreeable to [facility]--hopefully in 1-2 days
Original Note:
Today's Communication/Plan
-
- Follow BMP, temperature curve
- Follow-up ID recommendation about antibiotics
- Keep above in sling and keep elevated left upper extremity
Assessment / Plan
Assessment / Plan
Patient is an 89-year-old male presented to ER with a recent trauma history on his left elbow resulting swelling to the left forearm and hand.
#Left upper extremity trauma
-Swelling of left upper extremity - cellulitis may be contributing
-WBC found elevated to 15 and CRP elevated to 193.5 at admission//WBC decreased to 12.7,-no fever spikes
-Infectious disease on board
-Continue Vancomycin
-X ray of elbow and hand: No acute fracture or dislocation
-CT elbow: No convincing CT evidence for acute fracture or dislocation.
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
- Patient stopped using his colchicine on 11/12/2024-restarted on 11/29/24
#Chronic hypokalemia
-Has been on potassium chloride 20 mEq twice daily
-Potassium doses have been adjusted due to the addition of spironolactone
-Follow BMP
-Replace if needed
-Has result of hyperkalemia with 5.2 on 11/29/2024--adjusting potassium chloride dose can be considered with follow-up levels
#Gout
- Patient stopped taking colchicine 11/12/2024
- Uric acid levels elevated-9.6
- Continue colchicine due to concerning of contribution of gout/pseudogout his left hand and elbow swelling
#Permanent atrial fibrillation
-Continue home diltiazem ER and warfarin
-Monitor INR
#Heart failure with preserved ejection fraction
-No clinical signs of volume overload
-Follow weight changes/input and outputs
- Continue spironolactone 25 mg for now(Lasix doses have been changed and spironolactone has been added since the last admission)
#Essential HTN
-Continue home diltiazem and doxazosin 2mg
#Diabetes mellitus type 2
-Likely stable/undercontrol given his last hemoglobin A1c level at 5.6 on 11/28/24(previous one on 10/11/24 is 5.8)
-Hold metformin
- Continue diabetic diet
-Accuchecks
-ISS
#CKD stage II
- Cr 1.5(baseline 1.4-1.6)
- Follow-up BMP
- Avoid nephrotoxic medications
#Ischemic ulcer L ankle with fat layer exposed [employer]
-follows with podiatry outpt
-Wound care consulted
#CAD status post TX with stents placement/HLD
-Continue home atorvastatin 40mg, asa 81mg
#GERD
-Pantoprazole 40mg
#H/o recurrent cellulitis
-Continue home penicillin 500mg BID for prophylaxis
-on chronically [employer]
Recent hypoxemia requiring home oxygen now off--family physician would like him to have oxygen and keep his oxygen levels 95% or higher--no need for that at this point--lowest pulse ox that I reviewed is 92%
#Asthma-- not on inhalers [employer]; duonebs prn
#Chronic ambulatory dysfunction--uses rollator but cannot due to left arm
#Recent UTI last admission--resolved
#Valvular heart disease status post TAVR
#Code status: DNR
#DVT proph-- warfarin, SCDs
Anticipated Discharge: 24 - 48 hours
Subjective/Interval History
-
Date of Service: November 30, 2024
Patient reports some improvemet with his elbow movement but still reports pain.
Objective Data
-
Labs:
Laboratory Results
11/30/24
06:44
WBC 12.7 H
Hgb 11.6 L
Hct 34.9 L
Plt Count 205
PT 20.7 H
INR 1.72
Sodium Pending
Potassium Pending
Chloride Pending
Carbon Dioxide Pending
BUN Pending
Creatinine Pending
Glucose Pending
Calcium Pending
Total Bilirubin Pending
AST Pending
ALT Pending
Alkaline Phosphatase Pending
Vital Signs:
Vital Signs
Temp Pulse Resp BP Pulse Ox
97.3 F 75 18 129/68 98
11/29/24 23:24 11/29/24 23:24 11/29/24 23:24 11/29/24 23:24 11/29/24 23:24
I&O
11/29/24 11/30/24 12/01/24
06:59 06:59 06:59
Intake Total 480 / 480 900 / 900
Output Total 750 / 750 600 / 600
Balance -270 / -270 300 / 300
Review of Systems
-
History Source: Patient
EENT: Reports No Symptoms Reported
Respiratory: Reports No Symptoms
Cardiac: Reports No Symptoms
Abdomen/GI: Reports No Symptoms
Genitourinary: Reports No Symptoms
Musculoskeletal: Reports Other (Left arm and elbow pain and swelling )
Skin: Reports Other (redness on hand )
Neuro: Reports No Symptoms
Physical Exam
-
General: Well Developed, Well Nourished and Appears Chronically Ill
HEENT: Normocephalic and Atraumatic
Respiratory: Clear to Auscultation
Cardiac: Regular Rhythm and S1/S2
GI: Soft, Nontender and Nondistended
Musculoskeletal: No Clubbing, No Cyanosis, No Edema and Other (Left hand swollen, left elbow mildly swollen, redness on elbow and wrist)
Skin: Warm
Neuro: Awake, Alert, Oriented and AO x 3
Psych: Calm
[2024-11-30] MEDS: NOVOLOG FLEXPEN-LOW RESISTANCE SC ×3 (08:06→16:55)
[2024-11-30 08:29] LABS: ALT (SGPT) 45 U/L (0-50); AST (SGOT) 32 U/L (17-59); Albumin 3.5 g/dl (3.5-5.0); Alkaline Phosphatase 223 U/L (38-126); Blood Urea Nitrogen 46 mg/dl (9-20); Calcium 8.8 mg/dl (8.4-10.2); Carbon Dioxide 22 mmol/L (22-30); Chloride 106 mmol/L (98-107); Estimated Creatinine Clearance 40 ml/min; Glucose 101 mg/dl (70-99); Potassium 4.7 mmol/L (3.5-5.1); Sodium 139 mmol/L (135-145); Total Bilirubin 1.1 mg/dl (0.2-1.3); Total Protein 6.4 g/dl (6.3-8.2)
[2024-11-30] MEDS: MIRALAX PO (09:17)
[2024-11-30] MEDS: PROTONIX 40 MG PO (09:17)
[2024-11-30] MEDS: THERAGRAN 1 TABLET PO (09:17)
[2024-11-30] MEDS: PEN VK 500 MG PO ×2 (09:17→19:54)
[2024-11-30] MEDS: KCL 20 MEQ PO ×2 (09:18→19:54)
[2024-11-30] MEDS: ALDACTONE 25 MG PO (09:18)
[2024-11-30] MEDS: LASIX 80 MG PO ×2 (09:18→15:53)
[2024-11-30] MEDS: ASPIR LOW (ENTERIC COATED) 81 MG PO (09:18)
[2024-11-30] MEDS: COLCHICINE 0.6 MG PO (09:18)
[2024-11-30] MEDS: SANTYL OINTMENT 1 APPLIC TOPICAL (09:19)
[2024-11-30 09:29] LABS: Vancomycin Random 14.1 ug/ml
[2024-11-30 11:26] LABS: Glucose - Point of Care 119 mg/dl (70-99)
--- NOTE | 2024-11-30 12:57 | PHA.VAN.FU ---
Vancomycin Assessment / Plan
- Assessment
Renal Function: Stable
WBC's are: Trending Down
In the past 24 hrs, patient has been: Afebrile
Concomitant Antimicrobials: chronic penicillin
- Assessment - Therapeutic Drug Monitoring
Random Level: 14.1 - drawn ~20.5H after previous dose of 1000mg
- Dosing Plan
Dosing by Level: Re-dose today (Vanc 1000mg)
- Monitoring Plan
Random Level: 12/01 06
- Follow Up
Pharmacy will continue to follow.
Vancomycin Follow UP
- -
Patient Age: 89
Patient Sex: Male
Vancomycin Day #: 3
Indication: Skin And Soft Tissue
Requesting Provider: Dr. Orellana / Alexis
Pertinent Antimicrobial Allergies:
cefazolin - rash
Height / Weight:
Height 6 ft 2 in
Actual Weight 86.438 kg
IBW in k.2
Pertinent Past Medical History: CKD (baseline 1.4-1.6), DM 2
- Vital Signs / Lab Results
Temp Pulse Resp BP Pulse Ox
97.9 F 77 20 152/55 94
11/30/24 07:00 11/30/24 09:18 11/30/24 07:00 11/30/24 09:18 11/30/24 07:00
Lab Results - Hematology
11/28/24 11/29/24 11/30/24
13:29 06:58 06:44
WBC 15.3 H 14.4 H 12.7 H
Lab Results - Chemistry
11/28/24 11/29/24 11/30/24
13:29 06:58 06:44
BUN 42 H 39 H 46 H
Creatinine 1.7 H 1.6 H 1.5 H
Estimated Creat Clear 35 37 40
Albumin 3.8 3.5 3.5
Microbiology Results
11/29/24 03:53 MRSA Screen - Final
Nose No Methicillin Resistant Staphylococcus aureus isolated.
Therapeutic Drug Monitoring
Random Vancomycin 14.1 ug/ml 11/30/24 08:54
[2024-11-30] MEDS: VANCOCIN 200 IV (14:06)
[2024-11-30 15:00] VITALS: BP 136/79
--- NOTE | 2024-11-30 15:18 | W.PN.ID1 ---
Date of Service
Date of Service: November 30, 2024
Today's Communication
Continue antibiotics.
Assessment / Plan
Left wrist, forearm/arm cellulitis
Suspected (L) hand gout (vs. CPPD)
Leukocytosis
Cephalosporin (cefazolin) allergy
Elevated ESR and CRP
Urinary retention
CHF
Pulmonary hypertension
A-fib (on warfarin)
CAD
HTN
DM
CKD
Recommendations:
Continue with vancomycin for the present.
Follow levels closely to prevent nephrotoxicity.
Left upper extremity elevation to decrease edema
Follow white count and temperature curve
Follow for clinical improvement
Chief Complaint
-: Cellulitis
Subjective / Review of Systems
Patient seen and examined. Reports ongoing left hand, forearm and elbow area discomfort.
Review of Systems: No Fever and No Chills
Vital Signs / Physical Exam
Vital Signs
Vital Signs
Temp Pulse Resp BP Pulse Ox
97.9 F 77 20 152/55 94
11/30/24 07:00 11/30/24 09:18 11/30/24 07:00 11/30/24 09:18 11/30/24 07:00
Physical Exam
Constitutional: No Acute Distress, Comfortable and Non-toxic
Cardiovascular: S1/S2; Negative S3/S4
Pulmonary: Non Labored
Gastrointestinal: Soft
Extremities: Other (Left hand with ongoing edema, warmth, tenderness. Left forearm also with ongoing edema.)
Musculoskeletal: Joint Swelling (Left wrist)
Skin: Warm and Dry
Neurological: Awake and Alert
Objective Data
Lab Data
Lab Results
11/30/24 06:44
11/30/24 06:44
ESR 56 mm/hour (0-20) H 11/28/24 13:29
PT 20.7 Sec (11.4-14.6) H 11/30/24 06:44
INR 1.72 11/30/24 06:44
Estimated Creat Clear 40 ml/min 11/30/24 06:44
Total Bilirubin 1.1 mg/dl (0.2-1.3) 11/30/24 06:44
AST 32 U/L (17-59) 11/30/24 06:44
ALT 45 U/L (0-50) 11/30/24 06:44
Alkaline Phosphatase 223 U/L (38-126) H 11/30/24 06:44
C-Reactive Protein 193.50 mg/L (0.0-10.00) H 11/28/24 13:29
Most recent labs reviewed.
Micro Results:
11/29/24 03:53 MRSA Screen - Final
Nose No Methicillin Resistant Staphylococcus aureus isolated.
Imaging:
11/28/2024 CT left upper extremity: No CT evidence for acute fracture or dislocation. There is a moderate elbow joint effusion.
--- NOTE | 2024-11-30 15:42 | CM ---
Patient seen at bedside with physicians in [facility]. Patient stated he would like to go to SNF if possible, [facility] identified as choice by patient. CM sent referral to SNF and await confirmation of ability to accept. CM will continue to follow for
discharge planning needs.
Plan; SNF; [facility] pending acceptance.
[2024-11-30 16:36] LABS: Glucose - Point of Care 135 mg/dl (70-99)
[2024-11-30] MEDS: CARDURA 2 MG PO (17:46)
[2024-11-30] MEDS: LIPITOR 40 MG PO (17:47)
[2024-11-30] MEDS: FEOSOL 325 MG PO (17:47)
[2024-11-30 21:19] LABS: Glucose - Point of Care 132 mg/dl (70-99)
[2024-11-30] MEDS: CARDIZEM CD 120 MG PO (21:27)
[2024-11-30 22:29] VITALS: BP 134/59
[2024-12-01] MEDS: DILAUDID 0.25 MG IV ×2 (03:48→08:47)
[2024-12-01 05:59] VITALS: BMI 24.2
[2024-12-01 07:00] VITALS: BP 114/47
[2024-12-01 07:06] LABS: Glucose - Point of Care 105 mg/dl (70-99)
--- NOTE | 2024-12-01 07:37 | W.PN.UPDATE ---
Update Note
Progress Note Update
Mr. Michel is sitting comfortably in bed this morning. He reports a small amount of improvement in his symptoms overnight, particularly his swelling/redness. He does continue with pain in his hand, wrist and elbow. He was re-started on colchicine,
and is currently on vanco.
PE: Focused examination of the left upper extremity, with attention to the left elbow, wrist, and hand reveals skin intact. Erythematous hue about the dorsum of the left wrist and hand with no significant erythematous changes about the elbow.
Elbow range of motion intact, however diminished secondary to pain. No specific palpable fluid collection about the olecranon bursa. Edema noted to the dorsum of the left hand. He is able to wiggle all fingers, however unable to demonstrate full
composite fist secondary to edema and pain. Sensation is intact to light touch. Capillary refill is less than 2 seconds.
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
--Karel continues to notice slow, gradual improvement in his symptoms with current treatment. Continue to monitor.
--Continue treatment per medicine and ID, currently colchicine and vanco.
--Elevation and digital ROM as tolerated for edema control.
--Pain control per primary team. Sling for comfort. I did encourage him to work on gentle ROM of his wrist and hand as tolerated.
- Orthopedic surgery will continue to follow. Plan for dc to [facility].
--- NOTE | 2024-12-01 07:37 | W.PN.HOSP.TC ---
Addendum entered and electronically signed by Simran Orellana MD 12/01/24 15:04:
I saw and evaluated the patient independently. I reviewed the resident�s note and agree with findings and plan as documented by Dr. Cespedes.
GENERAL: chronically ill appearing male in no apparent distress
HEENT: NC/AT
HEART: irreg irreg
LUNGS : clear to auscultation bilaterally
ABDOM: soft, nontender, nondistended, + bowel sounds
EXT: no cyanosis, clubbing--left arm redness improved--arm in sling--still with swelling
NEUROLOGIC: grossly intact
Traumatic left elbow injury with resultant swelling to the left forearm and hand--x-ray of the elbow/hand and CT scan of the left elbow all neg for fracture--apprec orthopedics--there may be some component of cellulitis not associated with DM but
rather trauma, with white count of 15 but improving--IV vancomycin ot oral doxy to complete course--apprec ID consult--uric acid and inflammatory markers elevated--gout vs pseudogout--restarted colchicine--will give 1 dose of IV decadron 10mg
Permanent atrial fibrillation-- rate adequately controlled--Continue home diltiazem ER and warfarin-- Monitor INR.
Heart failure with preserved ejection fraction--no acute exacerbation--Lasix doses have been changed and spironolactone has been added since the last admission
Essential HTN-- continue home diltiazem and doxazosin
Diabetes mellitus type 2--metformin has been on hold since last admission-- Diabetic diet, accuchecks, ISS--check A1C
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
CAD status post MT with stents placement/HLD-- continue home atorvastatin 40mg, asa 81mg
GERD-- continue home pantoprazole 40mg
Chronic hypokalemia--potassium doses have been adjusted due to the addition of spironolactone--replete
Gout-- now off colchicine--uric acid level increased--restart
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
chronic wounds (POA)--Stage 1 left dorsal foot pressure injury, Stage 2 right ankle pressure injury
Recent hypoxemia requiring home oxygen now off--family physician would like him to have oxygen and keep his oxygen levels 95% or higher--no need for that at this point--lowest pulse ox that I reviewed is 92%
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
Chronic ambulatory dysfunction--uses rollator but cannot due to left arm
Recent UTI last admission--resolved
Valvular heart disease status post TAVR
Code status: DNR
DVT proph-- warfarin, SCDs
OK for d/c
Original Note:
Today's Communication/Plan
-
-10 mg of Decadron ordered
-Follow ID recc to switch doxy
-Discharge plan discussed with CM
Assessment / Plan
Assessment / Plan
Patient is an 89-year-old male presented to ER with a recent trauma history on his left elbow resulting swelling to the left forearm and hand.
#Left upper extremity trauma
-Swelling of left upper extremity - cellulitis may be contributing
-WBC found elevated to 15 and CRP elevated to 193.5 at admission//WBC decreased to 12.7,-no fever spikes
-Infectious disease on board
- Discontinue vancomycin--started on doxycycline oral
-X ray of elbow and hand: No acute fracture or dislocation
-CT elbow: No convincing CT evidence for acute fracture or dislocation.
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
- Patient stopped using his colchicine on 11/12/2024-restarted on 11/29/24
#Chronic hypokalemia
-Has been on potassium chloride 20 mEq twice daily
-Potassium doses have been adjusted due to the addition of spironolactone
-Follow BMP
-Replace if needed
-Has result of hyperkalemia with 5.2 on 11/29/2024--adjusting potassium chloride dose can be considered with follow-up levels
#Gout
- Patient stopped taking colchicine 11/12/2024
- Uric acid levels elevated-9.6
- Continue colchicine due to concerning of contribution of gout/pseudogout his left hand and elbow swelling
-One dose of 10 mg IV Decadron was ordered
#Permanent atrial fibrillation
-Continue home diltiazem ER and warfarin
-Monitor INR
#Heart failure with preserved ejection fraction
-No clinical signs of volume overload
-Follow weight changes/input and outputs
- Continue spironolactone 25 mg for now(Lasix doses have been changed and spironolactone has been added since the last admission)
#Essential HTN
-Continue home diltiazem and doxazosin 2mg
#Diabetes mellitus type 2
-Likely stable/undercontrol given his last hemoglobin A1c level at 5.6 on 11/28/24(previous one on 10/11/24 is 5.8)
-Hold metformin
-Continue diabetic diet
-Accuchecks
-ISS
#CKD stage II
- Cr 1.4(baseline 1.4-1.6)
- Follow-up BMP
- Avoid nephrotoxic medications
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
-follows with podiatry outpt
-Wound care consulted
#CAD status post MT with stents placement/HLD
-Continue home atorvastatin 40mg, asa 81mg
#GERD
-Pantoprazole 40mg
#H/o recurrent cellulitis
-Continue home penicillin 500mg BID for prophylaxis
-on chronically PROJECT CONTROL ANALYST
Recent hypoxemia requiring home oxygen now off--family physician would like him to have oxygen and keep his oxygen levels 95% or higher--no need for that at this point--lowest pulse ox that I reviewed is 92%
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
#Chronic ambulatory dysfunction--uses rollator but cannot due to left arm
#Recent UTI last admission--resolved
#Valvular heart disease status post TAVR
#Code status: DNR
#DVT proph-- warfarin, SCDs
Anticipated Discharge: 24 - 48 hours
Subjective/Interval History
-
Date of Service: December 01, 2024
Patient reports some improvement with his elbow movement. He still reports pain on his hand and elbow area.
Objective Data
-
Labs:
Laboratory Results
12/01/24
07:30
WBC Pending
Hgb Pending
Hct Pending
Plt Count Pending
PT Pending
INR Pending
Sodium Pending
Potassium Pending
Chloride Pending
Carbon Dioxide Pending
BUN Pending
Creatinine Pending
Glucose Pending
Calcium Pending
Total Bilirubin Pending
AST Pending
ALT Pending
Alkaline Phosphatase Pending
Vital Signs:
Vital Signs
Temp Pulse Resp BP Pulse Ox
98.5 F 85 20 134/59 92
11/30/24 22:29 11/30/24 22:29 11/30/24 22:29 11/30/24 22:29 11/30/24 22:29
I&O
11/30/24 12/01/24 12/02/24
06:59 06:59 06:59
Intake Total 900 / 900 900 / 900
Output Total 600 / 600
Balance 300 / 300 900 / 900
Review of Systems
-
History Source: Patient
EENT: Reports No Symptoms Reported
Respiratory: Reports No Symptoms
Cardiac: Reports No Symptoms
Abdomen/GI: Reports No Symptoms
Genitourinary: Reports No Symptoms
Musculoskeletal: Reports Other (Left arm and elbow pain and swelling)
Skin: Reports Other (redness on hand-seems improved since admission)
Neuro: Reports No Symptoms
Physical Exam
-
General: Well Developed, Well Nourished and Appears Chronically Ill
HEENT: Normocephalic and Atraumatic
Respiratory: Clear to Auscultation
Cardiac: Regular Rhythm and S1/S2
GI: Soft, Nontender and Nondistended
Musculoskeletal: No Clubbing, No Cyanosis, No Edema and Other (Left hand swollen, left elbow mildly swollen, redness on elbow and wrist)
Skin: Warm and Other (Redness on the left hand)
Neuro: Awake, Alert, Oriented and AO x 3
[2024-12-01 08:09] LABS: INR 1.74; PT 20.8 Sec (11.4-14.6)
[2024-12-01 08:17] LABS: Vancomycin Random 15.3 ug/ml
[2024-12-01 08:19] LABS: Hematocrit 33.5 % (39.0-52.0); Hemoglobin 11.1 g/dL (13.0-18.0); Mean Corp Hgb Conc. 33.1 g/dL (33.0-37.0); Mean Corpuscular Hgb 29.5 pg (27.0-31.0); Mean Corpuscular Volume 89.1 fL (80.0-94.0); Platelet Count 254 10^3/uL (130-400); Red Blood Cell Count 3.76 10^6/uL (4.70-6.10); Red Cell Dist. Width 17.6 % (11.5-14.5); White Blood Cell Count 13.5 10^3/uL (4.8-10.8)
[2024-12-01 08:25] LABS: ALT (SGPT) 68 U/L (0-50); AST (SGOT) 42 U/L (17-59); Albumin 3.3 g/dl (3.5-5.0); Alkaline Phosphatase 295 U/L (38-126); Blood Urea Nitrogen 49 mg/dl (9-20); Carbon Dioxide 25 mmol/L (22-30); Chloride 107 mmol/L (98-107); Estimated Creatinine Clearance 42 ml/min; Glucose 94 mg/dl (70-99); Potassium 4.7 mmol/L (3.5-5.1); Sodium 139 mmol/L (135-145); Total Protein 6.3 g/dl (6.3-8.2); eGFR 48.34
[2024-12-01] MEDS: NOVOLOG FLEXPEN-LOW RESISTANCE SC ×2 (08:29→11:19)
[2024-12-01] MEDS: PROTONIX 40 MG PO (08:38)
[2024-12-01] MEDS: THERAGRAN 1 TABLET PO (08:38)
[2024-12-01] MEDS: ASPIR LOW (ENTERIC COATED) 81 MG PO (08:38)
[2024-12-01] MEDS: KCL 20 MEQ PO (08:38)
--- NOTE | 2024-12-01 08:38 | PHA.VAN.FU ---
Vancomycin Assessment / Plan
- Assessment
Renal Function: SCR Decreasing
WBC's are: Trending Up
In the past 24 hrs, patient has been: Afebrile
Concomitant Antimicrobials: chronic penicillin
- Assessment - Therapeutic Drug Monitoring
Random Level: 15.3 - drawn ~17.5H after previous dose of 1000mg
- Dosing Plan
Dosing by Level: Re-dose today (Vanc 1000mg)
- Monitoring Plan
Random Level: 12/02 06
- Follow Up
Pharmacy will continue to follow.
Vancomycin Follow UP
- -
Patient Age: 89
Patient Sex: Male
Vancomycin Day #: 4
Indication: Skin And Soft Tissue
Requesting Provider: Dr. Orellana / Alexis
Pertinent Antimicrobial Allergies:
cefazolin - rash
Height / Weight:
Height 6 ft 2 in
Actual Weight 85.304 kg
IBW in k.2
Pertinent Past Medical History: CKD (baseline 1.4-1.6), DM 2
- Vital Signs / Lab Results
Temp Pulse Resp BP Pulse Ox
97.6 F 76 18 114/47 90
12/01/24 07:00 12/01/24 07:00 12/01/24 07:00 12/01/24 07:00 12/01/24 07:00
Lab Results - Hematology
11/28/24 11/29/24 11/30/24
13:29 06:58 06:44
WBC 15.3 H 14.4 H 12.7 H
12/01/24
07:30
WBC 13.5 H
Lab Results - Chemistry
11/28/24 11/29/24 11/30/24
13:29 06:58 06:44
BUN 42 H 39 H 46 H
Creatinine 1.7 H 1.6 H 1.5 H
Estimated Creat Clear 35 37 40
Albumin 3.8 3.5 3.5
12/01/24
07:30
BUN 49 H
Creatinine 1.4 H
Estimated Creat Clear 42
Albumin 3.3 L
Microbiology Results
11/29/24 03:53 MRSA Screen - Final
Nose No Methicillin Resistant Staphylococcus aureus isolated.
Therapeutic Drug Monitoring
Random Vancomycin 15.3 ug/ml 12/01/24 07:30
[2024-12-01] MEDS: ALDACTONE 25 MG PO (08:39)
[2024-12-01] MEDS: LASIX 80 MG PO ×2 (08:39→15:29)
[2024-12-01] MEDS: COLCHICINE 0.6 MG PO (08:39)
[2024-12-01] MEDS: PEN VK 500 MG PO (08:39)
[2024-12-01] MEDS: MIRALAX PO (08:40)
[2024-12-01] MEDS: MIRALAX 17 GRAMS PO (08:53)
--- NOTE | 2024-12-01 11:01 | W.PN.ID1 ---
Date of Service
Date of Service: December 01, 2024
Today's Communication
Transition to oral doxycycline.
Assessment / Plan
Left wrist, forearm/arm cellulitis
Suspected (L) hand gout (vs. CPPD)
Leukocytosis
Cephalosporin (cefazolin) allergy
Elevated ESR and CRP
Urinary retention
CHF
Pulmonary hypertension
A-fib (on warfarin)
CAD
HTN
DM
CKD
Recommendations:
Overall appears improved.
Cephalexin allergy limits abx options to degree. Additionally, patient on warfarin, making fluoroquinolone use problematic, and would like to avoid Bactrim given elevated creatinine.
Would transition to oral doxycycline 100 mg twice daily for an additional 7 days.
Continue with upper extremity elevation to decrease edema.
����������������������������������������������������������
Chief Complaint
-: Cellulitis (left hand)
Subjective / Review of Systems
Patient seen and examined. Reports hand discomfort is feeling somewhat improved, although remains edematous and swollen.
Vital Signs / Physical Exam
Vital Signs
Vital Signs
Temp Pulse Resp BP Pulse Ox
97.6 F 76 18 114/47 90
12/01/24 07:00 12/01/24 08:39 12/01/24 07:00 12/01/24 08:39 12/01/24 07:00
Physical Exam
Constitutional: No Acute Distress, Comfortable and Non-toxic
Eyes: Sclera Anicteric
Cardiovascular: Irregular Rate, S1/S2 and Murmur; Negative S3/S4
Pulmonary: Clear; Negative Wheezes or Rales
Gastrointestinal: Soft and Non Tender
Extremities: Other (Left hand with improved edema, warmth, tenderness. Left forearm edema improved.)
Musculoskeletal: Joint Swelling (Left wrist)
Skin: Warm and Dry
Neurological: Awake and Alert
Objective Data
Lab Data
Lab Results
12/01/24 07:30
12/01/24 07:30
ESR 56 mm/hour (0-20) H 11/28/24 13:29
PT 20.8 Sec (11.4-14.6) H 12/01/24 07:30
INR 1.74 12/01/24 07:30
Estimated Creat Clear 42 ml/min 12/01/24 07:30
Total Bilirubin 1.0 mg/dl (0.2-1.3) 12/01/24 07:30
AST 42 U/L (17-59) 12/01/24 07:30
ALT 68 U/L (0-50) H 12/01/24 07:30
Alkaline Phosphatase 295 U/L (38-126) H 12/01/24 07:30
C-Reactive Protein 193.50 mg/L (0.0-10.00) H 11/28/24 13:29
Most recent labs reviewed.
Micro Results:
11/29/24 03:53 MRSA Screen - Final
Nose No Methicillin Resistant Staphylococcus aureus isolated.
Imaging:
11/28/2024 CT left upper extremity: No CT evidence for acute fracture or dislocation. There is a moderate elbow joint effusion.
Care Review
Plan reviewed with: Physician (Resident)
[2024-12-01] MEDS: SANTYL OINTMENT 1 APPLIC TOPICAL (11:13)
[2024-12-01] MEDS: DECADRON 10 MG IV (11:14)
[2024-12-01] MEDS: VANCOCIN 200 IV (11:14)
[2024-12-01 11:17] LABS: Glucose - Point of Care 117 mg/dl (70-99)
--- NOTE | 2024-12-01 12:40 | PN.CDI ---
CDI
- -
CDI:
Physician Documentation Request
Admit Date: 11/28/24 19:[address] Cespedes,
Patient admitted with left upper extremity trauma.
12/01 PN, 'Swelling of left upper extremity - cellulitis may be contributing.....Diabetes mellitus type 2....'
12/01 ID note, 'Left wrist, forearm/arm cellulitis.'
Please clarify the likely relationship between these conditions:
Yes, cellulitis is related to/associated with/due to Type 2 diabetes.
No, cellulitis is not related to/associated with/due to Type 2 diabetes but it is due to ___. (Please specify)
Other
Use of terms such as suspected, likely, concern for, or probable (associated with a specific diagnosis that is being evaluated, monitored, or treated as if it exists) are acceptable and can be coded in the inpatient setting, when documented at the
time of discharge.
Thank you,
Clarice BELTRE,RN,CCDS
CDI Specialist
Available via tiger text
Please use your independent medical judgment in providing your response.
--- NOTE | 2024-12-01 12:59 | PN.CDI ---
CDI
- -
CDI:
Physician Documentation Request
Admit Date: 11/28/24 19:[address] Cespedes,
Patient admitted with left upper extremity trauma and cellulitis.
11/28 Nursing skin assessment, 'Stage 1 left dorsal foot pressure injury, POA....Stage 2 right ankle pressure injury, POA.'
Physician documentation of the type and location of wounds is required for compliant documentation. Based on the above clinical findings and your assessment, please provide the following in your progress note:
Type (etiology) of ulcer/wound:
- Pressure (decubitus) ulcer
- Other
- Unable to determine
For a pressure ulcer, please also include the stage* of the ulcer:
- Stage 1 - Skin intact, non-blanchable redness
- Stage 2 - Partial thickness loss of dermis, includes intact or open blister
- Stage 3 - Full thickness tissue not including bone, tendon or muscle
- Stage 4 - Full thickness tissue loss, including exposed bone, tendon or muscle
- Unstageable - Full thickness loss in which the base of the ulcer is covered by slough (yellow, reeves, harris, green or brown) and/or eschar (reeves, brown or black) in the wound bed.
- Unable to determine
Use of terms such as suspected, likely, concern for, or probable (associated with a specific diagnosis that is being evaluated, monitored, or treated as if it exists) are acceptable and can be coded in the inpatient setting, when documented at the
time of discharge.
Thank you,
Clarice BELTRE,RN,CCDS
CDI Specialist
Available via Hanna text
Please use your independent medical judgment in providing your response.
*Source: National Pressure Ulcer Advisory Panel (NPUAP)
--- NOTE | 2024-12-01 14:23 | CM ---
Patient accepted for transfer to [facility]. Patient family to transport. Patient completed IMM and signed form placed on chart. Please call report to [phone]/fax [phone]. CM will continue to follow for discharge planning needs.
Plan; transfer to [facility] today.
[2024-12-01 15:00] VITALS: BP 125/53
--- NOTE | 2024-12-01 16:07 | W.DCSUMMARY ---
Addendum entered and electronically signed by Simran Orellana MD 12/01/24 17:04:
Read, reviewed, and agree. See same day progress note for additional details. Time spent coordinating care, DC planning, review of DC plan of care with resident, transition of care, review of records in EMR, med rec, consults, notes, d/w
consultants, nursing, family, and CM = 38 minutes
Original Note:
Discharge Summary
Discharge Data
Date of Admission: 11/28/24
Date of Discharge: 12/01/24
-
Pending Results: No
Hospital Course
Disposition : SNF
Primary care physician : Grace Aguilar MD
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
Chronic Discharge diagnosis : History of gout arthritis, History of recurrent cellulitis, History of septic arthritis, Permanent atrial fibrillation, Heart failure with preserved ejection fraction, Essential Hypertension, Diabetes mellitus type 2,
Chronic Kidney Disease Stage II, [employer] Artery Disease post status stent, Hyperlipidemia, Gastroesophageal reflux disease, Asthma, Chronic ambulatory dysfunction, Valvular heart disease status post TAVR
Hospital Course :
#Left upper extremity trauma complicated with possible cellulitis/ Possible flare up of gout arthritis of left hand: The patient presented to ER complaining from redness, swelling and pain on his left hand and elbow. Patient reported having
trauma in the last week on his hand and elbow. He was obtained x-ray of his hand and elbow which was not remarkable for any fracture or dislocation. Her elbow CT also did not show any fracture. Her lab results were remarkable for elevated WBC to
15.3 and elevated uric acid levels to 9.6. Patient has past medical history of recurrent cellulitis, gout disease and septic arthritis. He was admitted for further assessment and treatment. The patient was started on IV vancomycin with the concern
of cellulitis on his hand given swelling and redness and warmness of the skin. He was seen by orthopedic team and was not considered for fluid aspiration and and had been followed up by the team during hospitalization. He was recommended to start
his colchicine if able to and the patient was restarted on his colchicine. The patient was also seen by infectious disease and recommended to continue IV vancomycin with a plan to change it to 7 days of doxycycline course at discharge. The patient
was given 10 mg of Decadron to address his swelling on his left elbow and hand. Patient's symptoms improved very mildly and he was recommended to be transferred to SNF by PT/OT.
#Chronic wounds (stage 1 left dorsal foot pressure injury, Stage 2 right ankle pressure injury): The patient was seen by wound care team during the hospitalization and had follow-up with them.
# Other medical problems includes History of gout arthritis, History of recurrent cellulitis, History of septic arthritis, Permanent atrial fibrillation, Heart failure with preserved ejection fraction, Essential Hypertension, Diabetes mellitus type
2, Chronic Kidney Disease Stage II, [employer] Artery Disease post status stent, Hyperlipidemia, Gastroesophageal reflux disease, Asthma, Chronic ambulatory dysfunction, Valvular heart disease status post TAVR. This problems were stable during the
hospitalization and were treated as able to.
Important imaging findings :
11/28/24 CR Elbow - Left Min 3 Views
CLINICAL HISTORY: Left elbow swelling/pain.
TECHNIQUE: 4 views of the left elbow were performed
COMPARISON: 02/21/2009.
FINDINGS/IMPRESSION:
No dislocation or appreciable acute fracture. The radiocapitellar and ulnar-trochlear joint alignments are maintained. Elevation of the anterior fat pad indicating an elbow joint effusion. This can be associated with an occult fracture if there is a
history of recent trauma, most commonly an occult radial head fracture. Diffuse soft tissue swelling about the elbow. Vascular calcifications.
11/28/24 STUDY: CR Hand - Left Min 3 Views
CLINICAL HISTORY: Left hand swelling/pain.
TECHNIQUE: 3 views of the left hand were performed.
COMPARISON: 05/05/2021.
FINDINGS/IMPRESSION:
No acute fracture or dislocation. Severe joint space narrowing at the first carpometacarpal joint with subchondral sclerosis and marginal osteophytes. Joint space narrowing and marginal osteophytes to a lesser degree throughout the interphalangeal
joints of the second through fifth fingers. Soft tissue swelling along the dorsal aspect of the hand. No radiopaque foreign body or soft tissue gas. Vascular calcifications.
11/28/24 CT Upper Ext W/o Iv Cont Lt
EXAMINATION: CT of the left elbow without contrast
INDICATION: 89-year-old with trauma to the left elbow.
COMPARISON: Left elbow radiographs from earlier this same date, November 28, 2024.
FINDINGS: Unenhanced CT of the left elbow is performed including multiplanar and 3-D volume reconstructions, with examination reviewed on the [employer] workstation.
There is no convincing CT evidence for fracture. No evidence for fracture of the distal humerus, with no convincing evidence for fracture of the radial head or neck. No evidence for fracture of the visualized proximal ulna.
There is focal soft tissue swelling dorsal to the olecranon process, including some subtle calcifications. 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 Please correlate with
any clinical signs or symptoms suggesting gout.
There is diffuse subcutaneous edema involving the upper arm and forearm.
There is a moderate elbow joint effusion with positive anterior and posterior fat pad signs. Effusions can sometimes be seen without fracture, but can also suggest the possibility of a fracture which is occult to CT imaging. If there are persistent
clinical symptoms and further imaging evaluation is desired, consideration for MRI of the elbow.
There is a small lipoma within the posterior musculature of the distal aspect of the left upper arm, seen on image 5 of series 201.
IMPRESSION: No convincing CT evidence for acute fracture or dislocation.
See above discussion.
Procedure findings :
Discharge Plan
-
Patient Disposition: Senior Living/SNF
Discharge Diagnosis/Procedures: Left upper extremity trauma complicated with possible cellulitis
Possible flare up of gout arthritis of left hand
History of gout arthritis
History of recurrent cellulitis
History of septic arthritis
Permanent atrial fibrillation
Heart failure with preserved ejection fraction
Essential Hypertension
Diabetes mellitus type 2
Chronic Kidney Disease Stage II
[employer] Artery Disease post status stent
Hyperlipidemia
Gastroesophageal reflux disease
Chronic wounds (stage 1 left dorsal foot pressure injury, Stage 2 right ankle pressure injury)
Asthma
Chronic ambulatory dysfunction
Condition: Fair
Diet: Diabetic, Carb Controlled
Activity: With assistance and As tolerated
Driving Restrictions: No driving
Bathing Restrictions: None
Activity Restrictions/Additional Instructions:
Wound Care Instructions
L lateral ankle: clean with soap and water, skin prep periwound, Santyl, adaptic and silicone foam change daily and prn drainage.
L great toe: if starts to drain apply adaptic and dry dressing daily
L dorsal foot: clean with soap and water, silicone foam change q 3 days and prn soilage.
R plantar foot: clean with soap and water, silicone foam change q 3 days and prn soilage.
Follow up with [employer].
Referrals:
Grace Aguilar MD [Family Provider] - in less than 1 week (Follow up with your PCP to be checked with CBC and CMP and uric acid )
Prescriptions:
New
doxycycline hyclate 100 mg Capsule
100 mg PO BID 7 Days Qty: 14 0RF
potassium chloride 20 mEq Tablet,Er Particles/Crystals
20 meq PO BID 30 Days Qty: 60 0RF
colchicine 0.6 mg Tablet
0.6 mg PO DAILY 30 Days Qty: 30 0RF
Continued
multivitamin with folic acid [Tab-A-Janay] 1 TABLET tablet
1 tab PO DAILY
pantoprazole 40 MG tablet,delayed release (DR/EC)
40 mg PO DAILY Qty: 90 10RF
atorvastatin 40 MG tablet
40 mg PO QPM Qty: 90 10RF
aspirin 81 MG tablet,delayed release (DR/EC)
81 mg PO DAILY
ferrous sulfate [FeroSul] 325 MG tablet
325 mg PO QPM
penicillin V potassium 500 mg Tablet
500 mg PO BID
warfarin 3 mg Tablet
3 mg PO SUMOFRSA@1800
warfarin 6 mg Tablet
6 mg PO TUWETH@1800
diltiazem HCl 120 mg Capsule,Extended Release 24hr
120 mg PO QPM
doxazosin 2 mg Tablet
2 mg PO QPM
spironolactone 25 mg Tablet
25 mg PO DAILY Qty: 30 0RF
acetaminophen 500 mg Tablet
500 mg PO DAILYPRN PRN (Reason: mild pain)
losartan 25 mg tablet
25 mg PO DAILY
furosemide 80 mg tablet
80 mg PO BID
Discontinued
potassium chloride [Klor-Con M20] 20 MEQ tablet,ER particles/crystals
40 meq PO BID
Discharge Orders:
Discharge Patient (As Directed); Ordered 12/01/24
Ordered By: Cristina Cespedes
Discharge Date and Time
Print Language: IRISH
[2024-12-01 16:29] LABS: Glucose - Point of Care 173 mg/dl (70-99)
[2024-12-01 17:44] VITALS: BP 129/68
[2024-12-01] MEDS: LIPITOR 40 MG PO (17:51)
[2024-12-01] MEDS: CARDURA 2 MG PO (17:51)
[2024-12-01] MEDS: FEOSOL 325 MG PO (17:51)
[2024-12-01] MEDS: NOVOLOG FLEXPEN-LOW RESISTANCE 1 UNITS SC (17:52)
== END 2024-12-01 07:35 | DRG 603 ==
LOC: 4 WEST ACU 19:12
PROVIDERS: Physician Assistant; Student in an Organized Health Care Education/Training Program; ADMITTING PHYSICIAN Internal Medicine; CONSULT PHYSICIAN Orthopaedic Surgery; EMERGENCY PHYSICIAN Student in an Organized Health Care Education/Training Program; FAMILY PHYSICIAN Family Medicine; OTHER PHYSICIAN Internal Medicine Infectious Disease
DX: L03.114 Cellulitis of left upper limb (principal); I48.21 Permanent atrial fibrillation; I13.0 Hypertensive heart and chronic kidney disease with heart failure and stage 1 through stage 4 chronic kidney disease, or unspecified chronic kidney disease; I50.32 Chronic diastolic (congestive) heart failure; M10.9 Gout, unspecified; L89.512 Pressure ulcer of right ankle, stage 2; L89.891 Pressure ulcer of other site, stage 1; Z79.01 Long term (current) use of anticoagulants; N18.2 Chronic kidney disease, stage 2 (mild); E11.22 Type 2 diabetes mellitus with diabetic chronic kidney disease; E78.5 Hyperlipidemia, unspecified; K21.9 Gastro-esophageal reflux disease without esophagitis; J45.909 Unspecified asthma, uncomplicated; Z95.2 Presence of prosthetic heart valve; I25.10 Atherosclerotic heart disease of native coronary artery without angina pectoris; I27.20 Pulmonary hypertension, unspecified; W01.0XXA Fall on same level from slipping, tripping and stumbling without subsequent striking against object, initial encounter; Z85.828 Personal history of other malignant neoplasm of skin; E11.51 Type 2 diabetes mellitus with diabetic peripheral angiopathy without gangrene; Z89.429 Acquired absence of other toe(s), unspecified side; Z87.891 Personal history of nicotine dependence; Z88.1 Allergy status to other antibiotic agents; Z79.82 Long term (current) use of aspirin; Z66 Do not resuscitate; Z95.5 Presence of coronary angioplasty implant and graft; D17.9 Benign lipomatous neoplasm, unspecified; E11.40 Type 2 diabetes mellitus with diabetic neuropathy, unspecified; E87.6 Hypokalemia; I25.2 Old myocardial infarction
CPT/HCPCS: 73080; 73130; 73200; 80053; 80202; 82962; 83036; 84550; 85025; 85027; 85610; 85652; 86140; 87070; 96365; 96366; 96375; 97116; 97163; 97166; 97530; 99285

== ENCOUNTER → 2024-12-02 13:23 | Outpatient (REF) | payer OTHER, MEDICARE, SELFPAY ==
[2024-12-02 13:38] LABS: % Basophils 0.1 % (0-2); % Immature Granulocytes 0.7 % (0-0.5); % Lymphocytes 3.5 % (20.5-51.1); % Monocytes 2.4 % (1.7-9.3); % Neutrophils 93.3 % (42.2-75.2); Absolute Immature Granulocytes 0.1 10^3/uL (0-0.05); Absolute Lymphocytes 0.5 10^3/uL (1.2-3.4); Absolute Monocytes 0.3 10^3/uL (0.1-0.6); Absolute Neutrophils 12.3 10^3/uL (1.4-6.5); Hematocrit 36.9 % (39.0-52.0); Mean Corp Hgb Conc. 32.5 g/dL (33.0-37.0); Mean Corpuscular Hgb 29.2 pg (27.0-31.0); Mean Corpuscular Volume 89.8 fL (80.0-94.0); Mean Platelet Volume 10.2 fL (7.4-10.4); Nucleated Red Blood Cells % 0 % (-); Platelet Count 254 10^3/uL (130-400); Red Blood Cell Count 4.11 10^6/uL (4.70-6.10); Red Cell Dist. Width 17.2 % (11.5-14.5); White Blood Cell Count 13.2 10^3/uL (4.8-10.8)
[2024-12-02 13:40] LABS: INR 1.51; PT 18.8 Sec (11.4-14.6)
[2024-12-02 14:21] LABS: Blood Urea Nitrogen 60 mg/dl (9-20); Carbon Dioxide 25 mmol/L (22-30); Chloride 102 mmol/L (98-107); Glucose 136 mg/dl (70-99); Potassium 5.1 mmol/L (3.5-5.1); Sodium 138 mmol/L (135-145); eGFR 48.34
== END ==
LOC: OLABP 13:23
PROVIDERS: ATTENDING PHYSICIAN Family Medicine
DX: L03.114 Cellulitis of left upper limb (principal); L03.90 Cellulitis, unspecified; N18.31 Chronic kidney disease, stage 3a; M10.9 Gout, unspecified; E87.6 Hypokalemia; I27.20 Pulmonary hypertension, unspecified; J45.909 Unspecified asthma, uncomplicated; L02.619 Cutaneous abscess of unspecified foot; I50.9 Heart failure, unspecified; R33.9 Retention of urine, unspecified; L81.7 Pigmented purpuric dermatosis
CPT/HCPCS: 36415; 80048; 85025; 85610

== ENCOUNTER → 2024-12-03 09:19 | Outpatient (REF) | payer OTHER, MEDICARE, SELFPAY ==
[2024-12-03 11:23] LABS: % Basophils 0.1 % (0-2); % Eosinophils 0.3 % (0-6); % Immature Granulocytes 0.9 % (0-0.5); % Lymphocytes 5.2 % (20.5-51.1); % Monocytes 5.9 % (1.7-9.3); % Neutrophils 87.6 % (42.2-75.2); Absolute Eosinophils 0.1 10^3/uL (0-0.7); Absolute Immature Granulocytes 0.1 10^3/uL (0-0.05); Absolute Lymphocytes 0.8 10^3/uL (1.2-3.4); Absolute Monocytes 0.9 10^3/uL (0.1-0.6); Hematocrit 31.5 % (39.0-52.0); Hemoglobin 10.3 g/dL (13.0-18.0); Mean Corp Hgb Conc. 32.7 g/dL (33.0-37.0); Mean Corpuscular Hgb 29.5 pg (27.0-31.0); Mean Corpuscular Volume 90.3 fL (80.0-94.0); Mean Platelet Volume 10.1 fL (7.4-10.4); Nucleated Red Blood Cells % 0 % (-); Platelet Count 267 10^3/uL (130-400); Red Blood Cell Count 3.49 10^6/uL (4.70-6.10); Red Cell Dist. Width 17.3 % (11.5-14.5); White Blood Cell Count 14.8 10^3/uL (4.8-10.8)
[2024-12-03 11:33] LABS: INR 1.51; PT 18.5 Sec (11.4-14.6)
[2024-12-03 11:42] LABS: Blood Urea Nitrogen 71 mg/dl (9-20); Calcium 8.3 mg/dl (8.4-10.2); Carbon Dioxide 21 mmol/L (22-30); Chloride 107 mmol/L (98-107); Glucose 110 mg/dl (70-99); Potassium 4.5 mmol/L (3.5-5.1); Sodium 139 mmol/L (135-145); eGFR 35.76
== END ==
LOC: OLABP 09:19
PROVIDERS: ATTENDING PHYSICIAN Family Medicine
DX: L03.114 Cellulitis of left upper limb (principal); S59.902A Unspecified injury of left elbow, initial encounter; N18.31 Chronic kidney disease, stage 3a; M10.9 Gout, unspecified; E87.6 Hypokalemia; I27.20 Pulmonary hypertension, unspecified; E11.9 Type 2 diabetes mellitus without complications; I10 Essential (primary) hypertension; K21.9 Gastro-esophageal reflux disease without esophagitis; J45.909 Unspecified asthma, uncomplicated; L02.619 Cutaneous abscess of unspecified foot; I50.9 Heart failure, unspecified; R33.9 Retention of urine, unspecified; L81.7 Pigmented purpuric dermatosis
CPT/HCPCS: 36415; 80048; 85025; 85610

== ENCOUNTER → 2024-12-07 09:27 | Outpatient (REF) | payer OTHER, MEDICARE, SELFPAY ==
[2024-12-07 13:53] LABS: % Basophils 0.4 % (0-2); % Immature Granulocytes 0.8 % (0-0.5); % Monocytes 6.8 % (1.7-9.3); Absolute Basophils 0.1 10^3/uL (0-0.2); Absolute Eosinophils 0.3 10^3/uL (0-0.7); Absolute Immature Granulocytes 0.1 10^3/uL (0-0.05); Absolute Lymphocytes 1.3 10^3/uL (1.2-3.4); Absolute Neutrophils 11.2 10^3/uL (1.4-6.5); Hematocrit 32.1 % (39.0-52.0); Hemoglobin 10.4 g/dL (13.0-18.0); Mean Corp Hgb Conc. 32.4 g/dL (33.0-37.0); Mean Corpuscular Hgb 29.3 pg (27.0-31.0); Mean Corpuscular Volume 90.4 fL (80.0-94.0); Mean Platelet Volume 11.1 fL (7.4-10.4); Nucleated Red Blood Cells % 0 % (-); Platelet Count 244 10^3/uL (130-400); Red Blood Cell Count 3.55 10^6/uL (4.70-6.10); Red Cell Dist. Width 17.3 % (11.5-14.5); White Blood Cell Count 13.9 10^3/uL (4.8-10.8)
[2024-12-07 13:59] LABS: Blood Urea Nitrogen 62 mg/dl (9-20); Calcium 8.5 mg/dl (8.4-10.2); Carbon Dioxide 21 mmol/L (22-30); Chloride 112 mmol/L (98-107); Glucose 103 mg/dl (70-99); Potassium 4.9 mmol/L (3.5-5.1); Sodium 142 mmol/L (135-145); eGFR 48.34
[2024-12-07 14:13] LABS: PT 23.7 Sec (11.4-14.6)
== END ==
LOC: OLABP 09:27
PROVIDERS: ATTENDING PHYSICIAN Family Medicine
DX: N18.31 Chronic kidney disease, stage 3a (principal); M10.9 Gout, unspecified; E87.6 Hypokalemia; I27.20 Pulmonary hypertension, unspecified; I10 Essential (primary) hypertension; K21.9 Gastro-esophageal reflux disease without esophagitis; J45.909 Unspecified asthma, uncomplicated; I50.9 Heart failure, unspecified; R33.9 Retention of urine, unspecified
CPT/HCPCS: 36415; 80048; 85025; 85610

== ENCOUNTER → 2024-12-09 09:16 | Outpatient (REF) | payer OTHER, MEDICARE, SELFPAY ==
[2024-12-09 11:19] LABS: Uric Acid 11.2 mg/dl (3.5-8.5)
== END ==
LOC: OLABP 09:16
PROVIDERS: ATTENDING PHYSICIAN Family Medicine
DX: L03.114 Cellulitis of left upper limb (principal); L02.619 Cutaneous abscess of unspecified foot; I50.9 Heart failure, unspecified; N18.31 Chronic kidney disease, stage 3a; L81.7 Pigmented purpuric dermatosis; M10.9 Gout, unspecified; I27.20 Pulmonary hypertension, unspecified; E11.9 Type 2 diabetes mellitus without complications; K21.9 Gastro-esophageal reflux disease without esophagitis; J45.909 Unspecified asthma, uncomplicated
CPT/HCPCS: 36415; 84550

== ENCOUNTER → 2024-12-10 09:37 | Outpatient (REF) | payer OTHER, MEDICARE, SELFPAY ==
[2024-12-10 10:43] LABS: INR 2.79; PT 29.4 Sec (11.4-14.6)
[2024-12-10 10:48] LABS: Blood Urea Nitrogen 40 mg/dl (9-20); Calcium 8.8 mg/dl (8.4-10.2); Carbon Dioxide 23 mmol/L (22-30); Chloride 112 mmol/L (98-107); Glucose 78 mg/dl (70-99); Potassium 5.2 mmol/L (3.5-5.1); Sodium 143 mmol/L (135-145); eGFR 58.17
== END ==
LOC: OLABP 09:37
PROVIDERS: ATTENDING PHYSICIAN Family Medicine
DX: L03.114 Cellulitis of left upper limb (principal); N18.31 Chronic kidney disease, stage 3a; M10.9 Gout, unspecified; E87.6 Hypokalemia; I27.20 Pulmonary hypertension, unspecified; E11.9 Type 2 diabetes mellitus without complications; I10 Essential (primary) hypertension; K21.9 Gastro-esophageal reflux disease without esophagitis; J45.909 Unspecified asthma, uncomplicated; I50.9 Heart failure, unspecified; R33.9 Retention of urine, unspecified; L81.7 Pigmented purpuric dermatosis
CPT/HCPCS: 36415; 80048; 85610

== ENCOUNTER → 2024-12-13 11:03 | Outpatient (REF) | payer OTHER, MEDICARE, SELFPAY ==
[2024-12-13 12:08] LABS: INR 3.89; PT 37.8 Sec (11.4-14.6)
== END ==
LOC: OLABP 11:03
PROVIDERS: ATTENDING PHYSICIAN Family Medicine
DX: N18.31 Chronic kidney disease, stage 3a (principal); M10.9 Gout, unspecified; E87.6 Hypokalemia; I27.20 Pulmonary hypertension, unspecified; E11.9 Type 2 diabetes mellitus without complications; I10 Essential (primary) hypertension; K21.9 Gastro-esophageal reflux disease without esophagitis; J45.909 Unspecified asthma, uncomplicated; I50.9 Heart failure, unspecified; R33.9 Retention of urine, unspecified
CPT/HCPCS: 36415; 85610

== ENCOUNTER → 2024-12-17 11:28 | Outpatient (REF) | payer OTHER, MEDICARE, SELFPAY ==
[2024-12-17 12:52] LABS: PT 28.7 Sec (11.4-14.6)
== END ==
LOC: OLABP 11:28
PROVIDERS: ATTENDING PHYSICIAN Family Medicine
DX: L03.114 Cellulitis of left upper limb (principal); L02.619 Cutaneous abscess of unspecified foot; I50.9 Heart failure, unspecified; R33.9 Retention of urine, unspecified; L81.7 Pigmented purpuric dermatosis; M10.9 Gout, unspecified; N18.31 Chronic kidney disease, stage 3a; E87.6 Hypokalemia; I27.20 Pulmonary hypertension, unspecified; E11.9 Type 2 diabetes mellitus without complications; K21.9 Gastro-esophageal reflux disease without esophagitis; J45.909 Unspecified asthma, uncomplicated; S59.902A Unspecified injury of left elbow, initial encounter
CPT/HCPCS: 36415; 85610

== ENCOUNTER → 2024-12-29 10:07 | Outpatient (REF) | payer MEDICARE, SELFPAY ==
[2024-12-29 13:23] LABS: % Basophils 0.5 % (0-2); % Eosinophils 3.5 % (0-6); % Immature Granulocytes 0.4 % (0-0.5); % Lymphocytes 10.8 % (20.5-51.1); % Neutrophils 76.8 % (42.2-75.2); Absolute Basophils 0.1 10^3/uL (0-0.2); Absolute Eosinophils 0.3 10^3/uL (0-0.7); Absolute Monocytes 0.8 10^3/uL (0.1-0.6); Absolute Neutrophils 7.3 10^3/uL (1.4-6.5); Hematocrit 36.3 % (39.0-52.0); Hemoglobin 11.7 g/dL (13.0-18.0); Mean Corp Hgb Conc. 32.2 g/dL (33.0-37.0); Mean Corpuscular Hgb 29.5 pg (27.0-31.0); Mean Corpuscular Volume 91.7 fL (80.0-94.0); Mean Platelet Volume 12.2 fL (7.4-10.4); Nucleated Red Blood Cells % 0 % (-); Platelet Count 200 10^3/uL (130-400); Red Blood Cell Count 3.96 10^6/uL (4.70-6.10); White Blood Cell Count 9.5 10^3/uL (4.8-10.8)
[2024-12-29 13:46] LABS: ALT (SGPT) 27 U/L (0-50); AST (SGOT) 26 U/L (17-59); Alkaline Phosphatase 177 U/L (38-126); Blood Urea Nitrogen 41 mg/dl (9-20); Calcium 9.2 mg/dl (8.4-10.2); Carbon Dioxide 25 mmol/L (22-30); Chloride 107 mmol/L (98-107); Glucose 95 mg/dl (70-99); Iron 72 ug/dl (49-181); Magnesium 1.9 mg/dl (1.6-2.3); Potassium 4.3 mmol/L (3.5-5.1); Sodium 142 mmol/L (135-145); Total Bilirubin 0.6 mg/dl (0.2-1.3); Total Protein 6.9 g/dl (6.3-8.2); Uric Acid 10.9 mg/dl (3.5-8.5)
[2024-12-29 13:55] LABS: Percent Saturation 22 % (20-50); Total Iron Binding Capacity 315 ug/dl (261-462)
[2024-12-29 14:04] LABS: Glycohemoglobin (HgbA1c) 5.6 % (4.0-5.6)
[2024-12-29 14:35] LABS: Vitamin B12 538 pg/ml (239-931)
[2024-12-31 19:12] LABS: Erythropoietin (EPO) 15 mU/mL (4-27)
== END ==
LOC: CLAB 10:07
PROVIDERS: ATTENDING PHYSICIAN Family Medicine
DX: R79.9 Abnormal finding of blood chemistry, unspecified (principal); Z01.89 Encounter for other specified special examinations; Z79.899 Other long term (current) drug therapy; E11.9 Type 2 diabetes mellitus without complications; E11.621 Type 2 diabetes mellitus with foot ulcer
CPT/HCPCS: 36415; 80053; 82607; 82668; 82728; 83036; 83540; 83550; 83735; 84550; 85025

== ENCOUNTER → 2025-02-03 09:29 | Outpatient (REF) | payer MEDICARE, SELFPAY | LOC: EMG 09:29 | PROVIDERS: ATTENDING PHYSICIAN Student in an Organized Health Care Education/Training Program; FAMILY PHYSICIAN Family Medicine | DX: M21.372 Foot drop, left foot (principal); R20.0 Anesthesia of skin; G57.32 Lesion of lateral popliteal nerve, left lower limb | CPT/HCPCS: 95886; 95910 ==

== ENCOUNTER → 2025-02-03 10:46 | Outpatient (REF) | payer MEDICARE, SELFPAY ==
[2025-02-03 11:48] LABS: Hematocrit 34.8 % (39.0-52.0); Hemoglobin 11.4 g/dL (13.0-18.0); Mean Corp Hgb Conc. 32.8 g/dL (33.0-37.0); Mean Corpuscular Volume 90.9 fL (80.0-94.0); Nucleated Red Blood Cells % 0 % (-); Platelet Count 199 10^3/uL (130-400); Red Cell Dist. Width 16.3 % (11.5-14.5)
[2025-02-03 12:21] LABS: ALT (SGPT) 30 U/L (0-50); AST (SGOT) 22 U/L (17-59); Albumin 4.1 g/dl (3.5-5.0); Alkaline Phosphatase 172 U/L (38-126); Blood Urea Nitrogen 56 mg/dl (9-20); Calcium 9.1 mg/dl (8.4-10.2); Carbon Dioxide 23 mmol/L (22-30); Chloride 107 mmol/L (98-107); Glucose 86 mg/dl (70-99); Magnesium 2.2 mg/dl (1.6-2.3); Potassium 5.0 mmol/L (3.5-5.1); Sodium 140 mmol/L (135-145); Total Protein 6.9 g/dl (6.3-8.2); eGFR 33.51
[2025-02-03 13:04] LABS: Vitamin B12 584 pg/ml (239-931)
== END ==
LOC: REG 10:46
PROVIDERS: ATTENDING PHYSICIAN Family Medicine
DX: R79.9 Abnormal finding of blood chemistry, unspecified (principal); Z01.89 Encounter for other specified special examinations; Z79.899 Other long term (current) drug therapy
CPT/HCPCS: 36415; 80053; 82607; 83735; 85025

== ENCOUNTER → 2025-05-02 10:00 | Outpatient (REF) | payer MEDICARE, SELFPAY | LOC: RCS 10:00 | PROVIDERS: ATTENDING PHYSICIAN Internal Medicine Cardiovascular Disease; FAMILY PHYSICIAN Family Medicine | DX: I25.10 Atherosclerotic heart disease of native coronary artery without angina pectoris (principal); I50.30 Unspecified diastolic (congestive) heart failure | CPT/HCPCS: 93306 ==

== ENCOUNTER → 2025-05-11 14:07 | Outpatient (REF) | payer MEDICARE, SELFPAY ==
[2025-05-11 14:54] LABS: Hematocrit 39.0 % (39.0-52.0); Hemoglobin 12.3 g/dL (13.0-18.0); Mean Corp Hgb Conc. 31.5 g/dL (33.0-37.0); Mean Corpuscular Volume 93.1 fL (80.0-94.0); Nucleated Red Blood Cells % 0 % (-); Platelet Count 137 10^3/uL (130-400); Red Cell Dist. Width 15.8 % (11.5-14.5)
[2025-05-11 15:10] LABS: ALT (SGPT) 41 U/L (0-50); AST (SGOT) 24 U/L (17-59); Albumin 3.9 g/dl (3.5-5.0); Alkaline Phosphatase 127 U/L (38-126); Alkaline Phosphatase, Total 127 U/L (38-126); Blood Urea Nitrogen 81 mg/dl (9-20); Calcium 8.8 mg/dl (8.4-10.2); Carbon Dioxide 22 mmol/L (22-30); Chloride 105 mmol/L (98-107); Glucose 80 mg/dl (70-99); Iron 52 ug/dl (49-181); Potassium 5.0 mmol/L (3.5-5.1); Sodium 136 mmol/L (135-145); Total Protein 6.9 g/dl (6.3-8.2); Uric Acid 12.9 mg/dl (3.5-8.5); eGFR 33.51
[2025-05-11 15:20] LABS: Total Iron Binding Capacity 310 ug/dl (261-462)
[2025-05-11 15:39] LABS: Vitamin D, 25-OH*** 52.9 ng/mL (30-80)
[2025-05-11 15:50] LABS: Alk Phos After Heat 89; Alkaline Phosphatase Percent 70.08
[2025-05-11 15:57] LABS: Ferritin 265.0 ng/ml (17.9-464.0)
== END ==
LOC: REG 14:07
PROVIDERS: ATTENDING PHYSICIAN Family Medicine
DX: N18.32 Chronic kidney disease, stage 3b (principal); R79.9 Abnormal finding of blood chemistry, unspecified; Z01.89 Encounter for other specified special examinations; Z79.899 Other long term (current) drug therapy
CPT/HCPCS: 36415; 80053; 82306; 82728; 83540; 83550; 83970; 84078; 84550; 85025

== ENCOUNTER → 2025-05-31 11:37 | Outpatient (REF) | payer MEDICARE, SELFPAY ==
[2025-05-31 12:35] LABS: Hematocrit 34.7 % (39.0-52.0); Hemoglobin 11.6 g/dL (13.0-18.0); Mean Corp Hgb Conc. 33.4 g/dL (33.0-37.0); Mean Corpuscular Volume 89.9 fL (80.0-94.0); Nucleated Red Blood Cells % 0 % (-); Platelet Count 228 10^3/uL (130-400); Red Cell Dist. Width 16.0 % (11.5-14.5)
[2025-05-31 13:50] LABS: ALT (SGPT) 24 U/L (0-50); AST (SGOT) 23 U/L (17-59); Albumin 3.9 g/dl (3.5-5.0); Alkaline Phosphatase 128 U/L (38-126); Blood Urea Nitrogen 85 mg/dl (9-20); Calcium 9.3 mg/dl (8.4-10.2); Carbon Dioxide 25 mmol/L (22-30); Chloride 99 mmol/L (98-107); Glucose 96 mg/dl (70-99); Potassium 4.8 mmol/L (3.5-5.1); Sodium 133 mmol/L (135-145); Total Protein 6.9 g/dl (6.3-8.2); Uric Acid 10.2 mg/dl (3.5-8.5); eGFR 20.17
== END ==
LOC: REG 11:37
PROVIDERS: ATTENDING PHYSICIAN Family Medicine
DX: N18.32 Chronic kidney disease, stage 3b (principal); R79.9 Abnormal finding of blood chemistry, unspecified; Z01.89 Encounter for other specified special examinations; Z79.899 Other long term (current) drug therapy
CPT/HCPCS: 36415; 80053; 82668; 84550; 85025